=== PATIENT | male | born 1955 | race Caucasian/White ===

== ENCOUNTER → 2017-09-21 | Outpatient (CLI) | payer OTHER ==
[~2017-09-21] MED LIST: ADAL1KIT SQ; ASPI81TA28 PO; FLM4 PO; GLIP-199 PO
[2017-09-21 13:26] LABS: BASO ABS # 0.08 K/uL (0-0.2); EOS % 2.9 %; EOS ABS # 0.23 K/uL (0-0.5); HEMATOCRIT 33.2 % (42-52); HEMOGLOBIN 10.8 g/dL (14.0-18.0); IG# 0.02 K/uL (0.00-0.02); LYMPH % 21.6 %; LYMPH ABS # 1.69 K/uL (1.2-3.4); MEAN CELL VOLUME 89.5 fL (80-100); MEAN CORPUSCULAR HEMOGLOBIN 29.1 pg (25-34); MEAN CORPUSCULAR HGB CONC 32.5 g/dl (32-36); MEAN PLATELET VOLUME 9.3 fL (7.4-10.4); MONO % 9.8 %; MONO ABS # 0.77 K/uL (0.11-0.59); NEUT % 64.4 %; NEUT ABS # 5.05 K/uL (1.4-6.5); PLATELET COUNT 341 K/uL (130-400); RED CELL DISTRIBUTION WIDTH CV 14.3 % (11.5-14.5); RED CELL DISTRIBUTION WIDTH SD 46.7 fL (36.4-46.3); WHITE BLOOD COUNT 7.84 K/uL (4.8-10.8)
[2017-09-21 14:00] LABS: HEMOGLOBIN A1C 8.4 % (4.5-5.6)
[2017-09-21 14:11] LABS: ALBUMIN 3.1 gm/dl (3.4-5.0); ALT/SGPT 30 U/L (12-78); AST/SGOT 27 U/L (15-37); BLOOD UREA NITROGEN 48 mg/dl (7-18); CALCIUM 9.4 mg/dl (8.5-10.1); CARBON DIOXIDE 26 mmol/L (21-32); CHOLESTEROL 129 mg/dl (0-200); CREATININE 3.32 mg/dl (0.60-1.40); GLUCOSE 146 mg/dl (70-99); POTASSIUM 4.7 mmol/L (3.5-5.1); SODIUM 135 mmol/L (136-145)
[2017-09-21 14:18] LABS: CREATININE RANDOM URINE 50.8 mg/dl
[2017-09-21 14:22] LABS: ALKALINE PHOSPHATASE 91 U/L (45-117); LDL CHOLESTEROL CALCULATED 79 mg/dl
== END | disposition home or self-care (01) ==
LOC: C.LABBC 09:05
PROVIDERS: ATTEND Family Medicine Adult Medicine
DX: Z00.00 Encounter for general adult medical examination without abnormal findings (principal); E11.9 Type 2 diabetes mellitus without complications; E78.5 Hyperlipidemia, unspecified; I10 Essential (primary) hypertension

== ENCOUNTER → 2017-10-11 | Outpatient (CLI) | payer OTHER ==
--- NOTE | 2017-10-11 15:43 | DIAGNOSTIC IMAGING REPORT ---
RENAL ULTRASOUND CLINICAL HISTORY: KIDNEY DISEASE COMPARISON STUDY: None. TECHNIQUE: Sonography of the kidneys and the urinary bladder was performed. FINDINGS: The right kidney measures 8.6 x 4 x 3.6 cm and the left kidney measures 11.7 x 5.8 x 4.7 cm. There is no hydronephrosis. Mild to moderate right renal atrophy is noted. Both kidneys are echogenic. No calculi or masses are identified. The right ureteral jet was not visualized. IMPRESSION: 1. No hydronephrosis. 2. Mild to moderate right renal atrophy. 3. Increased renal echogenicity consistent with medical renal disease. Electronically signed by: Shady Cano M.D. 10/11/2017 3:42 PM Dictated Date/Time: 10/11/2017 3:41 PM
== END | disposition home or self-care (01) ==
LOC: C.ULTRBC 15:00
PROVIDERS: ATTEND Internal Medicine Nephrology
DX: N18.4 Chronic kidney disease, stage 4 (severe) (principal)

== ENCOUNTER → 2017-10-11 | Outpatient (CLI) | payer OTHER ==
[2017-10-11 13:05] LABS: HEMATOCRIT 33.4 % (42-52); HEMOGLOBIN 11.3 g/dL (14.0-18.0); MEAN CELL VOLUME 88.1 fL (80-100); MEAN CORPUSCULAR HEMOGLOBIN 29.8 pg (25-34); MEAN CORPUSCULAR HGB CONC 33.8 g/dl (32-36); MEAN PLATELET VOLUME 9.7 fL (7.4-10.4); PLATELET COUNT 341 K/uL (130-400); RED CELL DISTRIBUTION WIDTH CV 13.8 % (11.5-14.5); RED CELL DISTRIBUTION WIDTH SD 44.7 fL (36.4-46.3); WHITE BLOOD COUNT 9.83 K/uL (4.8-10.8)
[2017-10-11 13:28] LABS: ALBUMIN 3.5 gm/dl (3.4-5.0); BLOOD UREA NITROGEN 41 mg/dl (7-18); CALCIUM 9.2 mg/dl (8.5-10.1); CARBON DIOXIDE 28 mmol/L (21-32); CREATININE 3.19 mg/dl (0.60-1.40); GLUCOSE 228 mg/dl (70-99); POTASSIUM 4.5 mmol/L (3.5-5.1); SODIUM 134 mmol/L (136-145)
[2017-10-11 13:29] LABS: PHOSPHORUS 2.8 mg/dl (2.5-4.9)
== END | disposition home or self-care (01) ==
LOC: C.LABBC 09:44
PROVIDERS: ATTEND Internal Medicine Nephrology
DX: D64.9 Anemia, unspecified (principal); E55.9 Vitamin D deficiency, unspecified; N18.4 Chronic kidney disease, stage 4 (severe)

== ENCOUNTER → 2018-01-04 | Outpatient (CLI) | payer OTHER ==
[2018-01-04 13:20] LABS: ALBUMIN 3.4 gm/dl (3.4-5.0); ALKALINE PHOSPHATASE 82 U/L (45-117); ALT/SGPT 39 U/L (12-78); AST/SGOT 40 U/L (15-37); BLOOD UREA NITROGEN 58 mg/dl (7-18); CALCIUM 9.1 mg/dl (8.5-10.1); CARBON DIOXIDE 27 mmol/L (21-32); CREATININE 4.07 mg/dl (0.60-1.40); GLUCOSE 103 mg/dl (70-99); POTASSIUM 4.4 mmol/L (3.5-5.1); SODIUM 136 mmol/L (136-145); TOTAL PROTEIN 7.9 gm/dl (6.4-8.2)
[2018-01-04 13:31] LABS: HEMOGLOBIN A1C 8.2 % (4.5-5.6)
== END | disposition home or self-care (01) ==
LOC: C.LABBC 09:08
PROVIDERS: ATTEND Family Medicine Adult Medicine
DX: E11.9 Type 2 diabetes mellitus without complications (principal); D64.9 Anemia, unspecified

== ENCOUNTER 2022-04-23 09:03 | Inpatient (IN) ==
--- NOTE | 2022-04-23 09:20 | Emergency Department Note ---
Impression & Plan Sepsis, Acute hypotension, Leukocytosis, Acute UTI (urinary tract infection), Immunocompromised state ED Provider Note Name: KINJAL SHI Age: 67 Sex: M Arrives Via: Walk-In Informant: Patient, Daughter ED Provider: Barron Lomas MD Chief Complaint: Chills Impression: As per impressions above Medical Decision Makin-year-old gentleman with history of diabetes, hyperlipidemia, hypertension, psoriasis, chronic hep B who has previous renal cell transplant and is on CellCept. He arrives for evaluation of worsening chills and fevers. On arrival patient is tachycardic, hypotensive and febrile. Septic work-up initiated with cultures and lactate obtained. He was given 2 L normal saline bolus IV for a 30/kg fluid bolus. He was given empiric IV cefepime for suspected urinary infection. Laboratory work-up reveals elevated white blood cell count and mild bump in his creatinine to 1.6 from a reported 1.1-1.2 as an outpatient. His urinalysis does seem consistent with urinary tract infection. He has no abdominal tenderness palpation, no evidence of meningitis and respiratory seems clear. He is breathing comfortably. Following fluid bolus patient looks much improved heart rate is come down and is in no distress. Patient is septic from a urinary infection in the setting of chronic immunosuppression. He will require hospitalization. Hospitalist consulted for further management. I will note patient's troponin is elevated. He has no chest pain, no shortness of breath no recent syncope palpitations. His EKG is without evidence of isc hemia. I suspect that the elevated troponin is secondary to acute hypotensive episode in the setting of sepsis and should see. Prior Medical Record and Triage/Nursing Notes reviewed by Me Additional history obtained from chart and daughter Differentials:Viral syndrome, otitis, pharyngitis, pneumonia, influenza, meningitis, urinary tract infection, sepsis, bacteremia, as well as other pathologies. Vital Signs: reviewed and remarkable for fever, tachycardia, hypotension Interventions: 2 L normal saline bolus IV, cefepime 2 g IV, daptomycin IV Labs:Reviewed and remarkable for elevated troponin, elevated white blood cell count, mild elevated Cr Imaging:X ray results are stated below per my interpretation: Chest: 1 view: No infiltrate, no effusion, normal cardiac border. EKG:As per my interpretation. Indication sepsis. Sinus tachycardia at 109 bpm with a QTC of 420. There is no ectopy nor ischemia. I do not see any previous EKGs for comparison. Cardiac/Tele Monitoring: Cardiac Monitoring: An Order was placed for continuous cardiac monitoring. The monitor shows a rate of 90 with a normal sinus rhythm. Consults:Dr Maria E TAVERA Hospitalist Plan: Disposition:Hospitalization. Condition: Fair History of Present Illness:67-year-old gentleman with a history of renal transplant on CellCept, diabetes, hyperlipidemia, hypertension, psoriasis and chronic hep B arrives for evaluation of fevers and illness. Patient not feeling well yesterday with fatigue and chills. Overnight developing fevers. He has been having shaking chills throughout the evening. He notes he feels quite weak at times. This morning took some Tylenol for fever and came into the ER for evaluation. He notes on arrival he is feeling a bit better. He was immediately taken to be 3 on arrival given his low blood pressure and elevated pulse rate. Patient just feels he is tired currently. Denies any headache, neck pain, chest pain, shortness of breath, abdominal pain, urinary burning/frequency, diarrhea, rashes, leg swelling, calf pain or other concerning signs or symptoms. He does have a history of UTI following his renal cell transplant and had sepsis at that time. Denies any recent falls, trauma, injuries. Tylenol prior to arrival. Exertion seems to make symptoms worse and rest seems to make them better. ROS: See above HPI for pertinent positives & negatives. A total of 10 systems reviewed and were otherwise negative. Past Medical History: diabetes, hyperlipidemia, hypertension, psoriasis, chronic hep B Past Surgical History:Renal cell transplant Family History:See Below Social History:See Below Home Medications:See Below Allergies:PNC Vitals:Blood Pressure: 87/56, Pulse 124, RR 20, T 37.3C, O2 96% on RA Physical Exam: GENERAL: Patient is unwell appearing and in dehydrated and mild distress. EYES: No scleral icterus, unremarkable pupils. ENT: Mucous membranes dry, no nasal congestion. NECK: No masses appreciated, nomeningismus, trachea is midline. RESPIRATORY: No dyspnea. Clear to auscultation and equal bilaterally. No wheeze, no rhonchi. CARDIOVASCULAR: Tachy.No murmurs, rubs, gallops appreciated. GASTROINTESTINAL: Abdomen soft, non-tender, no peritonitis.Bowel sounds positive.No masses appreciated. BACK: No midline tenderness, no CVA tenderness EXTREMITIES: Normal motion all extremities, no cyanosis, no edema. NEUROLOGIC: Alert and oriented, no acute motor or sensory deficits, no focal weakness, cranial nerves grossly intact. SKIN: No rash, no jaundice, no diaphoresis. PSYCH: Appropriate GCS: 15 ED Course: Times/Reassessments: Patient with rapid improvement following fluid bolus. He is breathing comfortably he is in no distress he is agreeable to hospitalization. Post resuscitation volume status examination at 11:08 AM on 04/23/2022. Patient comfortable blood pressure is 110/60, heart rate 90, satting 98% on room air with good cap refill no distress. He is well-hydrated at this point. Critical Care: I have personally spent 45 minutes of critical care time in the direct managemen t of this patient. Hypotensive Sepsis with UTI in immunocompromised male requiring fluid resuscitation. This was a life/limb threatening event. This 45 minutes is in excess of all separately billable procedures. Barron Lomas MD Past Med/Surg History Medical History (Updated 04/23/22 @ 13:00 by Barron Lomas MD) Chronic hepatitis B Diabetes mellitus, type 2 History of kidney stones Hyperlipidemia Hypertension Positive PPD Psoriasis Psoriatic arthritis Tubulovillous adenoma Surgical History A-V fistula LEFT History of colonoscopy History of esophagogastroduodenoscopy (EGD) History of lithotripsy Renal transplant recipient Family History Father Myocardial infarction Family history of diabetes mellitus Other No family history of adverse response to anesthesia Denies family history of Ovarian cancer Prostate cancer Breast cancer Colorectal cancer Lung disease Social History Smoking Status: Former smoker Tobacco Type: Cigarettes Second Hand Exposure: No; Hx Alcohol Use: No Hx Substance Use: No Preferred Language: Monegasque Visual Impairment: Limited Hearing Ability: Normal Home Care Manager Required: No Beliefs That Will Affect Care: None marital status: Current Living Situation: Family Current Living Situation Comment: AND SON current occupational status: employed current occupation: SELF EMPLOYED How many Children do You have: 2 Feels Safe at Home: Yes Childhood Exposure to Second-Hand Smoke: No caffeine: Yes Dental Care, Regularly: Yes Physical Activity Frequency: 1-2 Times per Week Seatbelt Use: always Sunscreen Use: Yes Assistive Devices: Glasses Allergies Allergies Allergy/AdvReac Type Severity Reaction Status Date / Time Penicillins Allergy Mild Rash Verified 01/30/22 13:11 Home Meds Home Medications Medication Instructions Recorded Confirmed aspirin 81 mg chewable tablet 1 tab PO DAILY #30 tabs 11/23/18 01/30/22 entecavir 0.5 mg tablet (Baraclude) 0.5 mg PO DAILY 03/24/21 01/30/22 mycophenolate mofetil 250 mg 1,000 mg PO BID 03/24/21 01/30/22 capsule (CellCept) acetaminophen 500 mg tablet 500 mg PO Q8H PRN 01/30/22 01/30/22 (Tylenol Extra Strength) belatacept 250 mg intravenous IV 01/30/22 01/30/22 solution (Nulojix) betamethasone dipropionate 0.05 % 1 applic topical DAILY PRN 01/30/22 01/30/22 topical cream blood-glucose meter,continuous 01/30/22 01/30/22 (Dexcom G6 Pug Machine Operator misc) blood-glucose sensor (Dexcom G6 01/30/22 01/30/22 Sensor device) blood-glucose transmitter (Dexcom 01/30/22 01/30/22 G6 Transmitter device) docusate sodium 100 mg capsule 100 mg PO BID 01/30/22 01/30/22 insulin aspart U-100 100 unit/mL 12 unit subcut TID 01/30/22 01/30/22 subcutaneous cartridge (Novolog PenFill U-100 Insulin aspart) insulin glargine 100 unit/mL (3 24 unit subcut QPM 01/30/22 01/30/22 mL) subcutaneous pen (Basaglar KwikPen U-100 Insulin) isoniazid 300 mg tablet 300 mg PO DAILY 01/30/22 01/30/22 metformin 500 mg tablet 500 mg PO BID 01/30/22 01/30/22 pen needle, diabetic 32 gauge x 01/30/22 01/30/22 5/32" (BD Jackie 2nd Gen Pen Needle) pyridoxine (vitamin B6) 50 mg 50 mg PO DAILY 01/30/22 01/30/22 tablet sitagliptin phosphate 100 mg 100 mg PO DAILY 01/30/22 01/30/22 tablet (Januvia) Previous Rx's Medication Instructions Recorded blood-glucose meter (OneTouch #1 ea 08/13/20 Verio Meter) carvedilol 3.125 mg tablet (Coreg) 3.125 mg PO BID #60 tabs 10/03/20 lancets (OneTouch UltraSoft #200 ea 02/27/21 Lancets) blood sugar diagnostic (OneTouch #200 strips 12/31/21 Verio test strips) atorvastatin 10 mg tablet 10 mg PO DAILY #90 tabs 03/25/22 Results & Data (ED) Vital Signs Vital Signs - 24 hr 04/23/22 09:05 04/23/22 09:39 04/23/22 09:32 Temperature 37.3 C Temperature Source Temporal Artery Scan Pulse Rate 124 H 105 H Respiratory Rate 20 20 Respiratory Effort / Characteristics Non-Labored Respiratory Depth Normal Blood Pressure 87/56 L 99/62 L Blood Pressure Mean 66 74 Pulse Oximetry 96 96 95 Oxygen Delivery Method Room Air Room Air Sepsis Recent Fever Within 48 Hours No Sepsis New/Unexplained Change in Mental Status N/A Sepsis Action Taken by Nursing No Action Required 04/23/22 10:00 04/23/22 11:50 04/23/22 11:50 Temperature 36.8 C Temperature Source Oral Pulse Rate 98 H 94 H Respiratory Rate 20 Respiratory Effort / Characteristics Respiratory Depth Blood Pressure 102/59 L 132/65 Blood Pressure Mean 73 87 Pulse Oximetry 97 96 Oxygen Delivery Method Room Air Sepsis Recent Fever Within 48 Hours Sepsis New/Unexplained Change in Mental Status Sepsis Action Taken by Nursing Laboratory Data Result diagrams: 04/23/22 09:20 04/23/22 09:20 Lab Results 04/23/22 04/23/22 04/23/22 Range/Units 09:20 09:20 09:20 WBC 24.05 H (4.8-10.8) K/ul RBC 4.12 L (4.63-6.08) M/uL Hgb 12.7 L (14.0-18.0) g/dl Hct 38.4 L (40.1-51.0) % MCV 93.2 (80.0-100.0) fL MCH 30.8 (25.0-34.0) pg MCHC 33.1 (32.0-36.0) g/dL RDW Std Deviation 44.4 (36.4-46.3) fL RDW Coeff of Yves 13.0 (11.5-14.5) % Plt Count 206 (130-400) K/uL MPV 9.5 (9.4-12.4) fL Immature Gran % (Auto) 0.9 % Neut % (Auto) 89.7 % Lymph % (Auto) 2.0 % Bowie % (Auto) 6.9 % Eos % (Auto) 0.3 % Baso % (Auto) 0.2 % Neut # (Auto) 21.54 H (1.4-6.5) K/uL Lymph # (Auto) 0.49 L (1.2-3.4) K/uL Bowie # (Auto) 1.67 H (0.24-0.82) K/uL Eos # (Auto) 0.08 (0-0.50) K/uL Baso # (Auto) 0.06 (0-0.2) K/uL Immature Gran # (Auto) 0.21 H (0.00-0.02) K/uL Sodium 129 L (136-145) mmol/L Potassium 4.1 (3.5-5.1) mmol/L Chloride 95 L (98-107) mmol/L Carbon Dioxide 25 (21-32) mmol/L Anion Gap 9 (3-11) BUN 18 (6-23) mg/dl Creatinine 1.69 H (0.6-1.4) mg/dl Est Cr Clr Drug Dosing 38.5 ml/min Est GFR ( Amer) 47.3 ml/min Est GFR (Non-Af Amer) 40.8 ml/min BUN/Creatinine Ratio 10.7 (10-20) Glucose 216 H (70-99(Fasting)) mg/dl POC Glucose (70-99) mg/dl Lactate 2.0 (0.4-2.0) mmol/L Calcium 10.7 H (8.5-10.1) mg/dl Magnesium 1.5 L (1.7-2.4) mg/dl Total Bilirubin 0.9 (0.2-1.0) mg/dl Direct Bilirubin 0.3 H (0-0.2) mg/dl AST 20 (13-39) U/L ALT 18 (7-52) U/L Alkaline Phosphatase 82 (34-104) U/L Troponin I High Sens 1708.5 H* (0-20) pg/ml Total Protein 7.1 (6.0-8.3) gm/dl Albumin 4.1 (3.4-5.0) gm/dl Procalcitonin (0-0.5) ng/ml Urine Color Urine Appearance (Clear) Urine pH (4.5-7.5) Ur Specific [place] (1.000-1.030) Urine Protein (Negative) Urine Glucose (UA) (Negative) Urine Ketones (Negative) Urine Blood (Negative) Urine Nitrite (Negative) Urine Bilirubin (Negative) Urine Urobilinogen (Negative) Ur Leukocyte Esterase (Negative) Urine WBC (Auto) (0-5) /hpf Urine RBC (Auto) (0-4) /hpf U Hyaline Cast (Auto) (0-5) /lpf U Epithel Cells (Auto) (0-5) /lpf Urine Bacteria (Auto) (Negative) Granular Casts (0) /lpf Urine Yeast SARS-CoV-2 (PCR) (Negative) Influenza Type A (PCR) (Neg) Influenza Type B (PCR) (Neg) RSV (RT-PCR) (Neg) 04/23/22 04/23/22 04/23/22 Range/Units 09:20 09:26 09:32 WBC (4.8-10.8) K/ul RBC (4.63-6.08) M/uL Hgb (14.0-18.0) g/dl Hct (40.1-51.0) % MCV (80.0-100.0) fL MCH (25.0-34.0) pg MCHC (32.0-36.0) g/dL RDW Std Deviation (36.4-46.3) fL RDW Coeff of Yves (11.5-14.5) % Plt Count (130-400) K/uL MPV (9.4-12.4) fL Immature Gran % (Auto) % Neut % (Auto) % Lymph % (Auto) % Bowie % (Auto) % Eos % (Auto) % Baso % (Auto) % Neut # (Auto) (1.4-6.5) K/uL Lymph # (Auto) (1.2-3.4) K/uL [place]ie # (Auto) (0.24-0.82) K/uL Eos # (Auto) (0-0.50) K/uL Baso # (Auto) (0-0.2) K/uL Immature Gran # (Auto) (0.00-0.02) K/uL Sodium (136-145) mmol/L Potassium (3.5-5.1) mmol/L Chloride (98-107) mmol/L Carbon Dioxide (21-32) mmol/L Anion Gap (3-11) BUN (6-23) mg/dl Creatinine (0.6-1.4) mg/dl Est Cr Clr Drug Dosing ml/min Est GFR ( Amer) ml/min Est GFR (Non-Af Amer) ml/min BUN/Creatinine Ratio (10-20) Glucose (70-99(Fasting)) mg/dl POC Glucose (70-99) mg/dl Lactate (0.4-2.0) mmol/L Calcium (8.5-10.1) mg/dl Magnesium (1.7-2.4) mg/dl Total Bilirubin (0.2-1.0) mg/dl Direct Bilirubin (0-0.2) mg/dl AST (13-39) U/L ALT (7-52) U/L Alkaline Phosphatase (34-104) U/L Troponin I High Sens (0-20) pg/ml Total Protein (6.0-8.3) gm/dl Albumin (3.4-5.0) gm/dl Procalcitonin 3.85 H (0-0.5) ng/ml Urine Color Dark Yellow Urine Appearance Turbid A (Clear) Urine pH 5.5 (4.5-7.5) Ur Specific [place] 1.026 (1.000-1.030) Urine Protein 2+ H (Negative) Urine Glucose (UA) Trace H (Negative) Urine Ketones Trace H (Negative) Urine Blood 3+ H (Negative) Urine Nitrite Negative (Negative) Urine Bilirubin Negative (Negative) Urine Urobilinogen Negative (Negative) Ur Leukocyte Esterase 3+ H (Negative) Urine WBC (Auto) >30 H (0-5) /hpf Urine RBC (Auto) 0-4 (0-4) /hpf U Hyaline Cast (Auto) 1-5 (0-5) /lpf U Epithel Cells (Auto) >30 H (0-5) /lpf Urine Bacteria (Auto) 4+ H (Negative) Granular Casts 1-5 H (0) /lpf Urine Yeast Not Reportable SARS-CoV-2 (PCR) NEGATIVE (Negative) Influenza Type A (PCR) Negative (Neg) Influenza Type B (PCR) Negative (Neg) RSV (RT-PCR) Negative (Neg) 04/23/22 Range/Units 12:22 WBC (4.8-10.8) K/ul RBC (4.63-6.08) M/uL Hgb (14.0-18.0) g/dl Hct (40.1-51.0) % MCV (80.0-100.0) fL MCH (25.0-34.0) pg MCHC (32.0-36.0) g/dL RDW Std Deviation (36.4-46.3) fL RDW Coeff of Yves (11.5-14.5) % Plt Count (130-400) K/uL MPV (9.4-12.4) fL Immature Gran % (Auto) % Neut % (Auto) % Lymph % (Auto) % Bowie % (Auto) % Eos % (Auto) % Baso % (Auto) % Neut # (Auto) (1.4-6.5) K/uL Lymph # (Auto) (1.2-3.4) K/uL [place] # (Auto) (0.24-0.82) K/uL Eos # (Auto) (0-0.50) K/uL Baso # (Auto) (0-0.2) K/uL Immature Gran # (Auto) (0.00-0.02) K/uL Sodium (136-145) mmol/L Potassium (3.5-5.1) mmol/L Chloride (98-107) mmol/L Carbon Dioxide (21-32) mmol/L Anion Gap (3-11) BUN (6-23) mg/dl Creatinine (0.6-1.4) mg/dl Est Cr Clr Drug Dosing ml/min Est GFR ( Amer) ml/min Est GFR (Non-Af Amer) ml/min BUN/Creatinine Ratio (10-20) Glucose (70-99(Fasting)) mg/dl POC Glucose 84 (70-99) mg/dl Lactate (0.4-2.0) mmol/L Calcium (8.5-10.1) mg/dl Magnesium (1.7-2.4) mg/dl Total Bilirubin (0.2-1.0) mg/dl Direct Bilirubin (0-0.2) mg/dl AST (13-39) U/L ALT (7-52) U/L Alkaline Phosphatase (34-104) U/L Troponin I High Sens (0-20) pg/ml Total Protein (6.0-8.3) gm/dl Albumin (3.4-5.0) gm/dl Procalcitonin (0-0.5) ng/ml Urine Color Urine Appearance (Clear) Urine pH (4.5-7.5) Ur Specific [place] (1.000-1.030) Urine Protein (Negative) Urine Glucose (UA) (Negative) Urine Ketones (Negative) Urine Blood (Negative) Urine Nitrite (Negative) Urine Bilirubin (Negative) Urine Urobilinogen (Negative) Ur Leukocyte Esterase (Negative) Urine WBC (Auto) (0-5) /hpf Urine RBC (Auto) (0-4) /hpf U Hyaline Cast (Auto) (0-5) /lpf U Epithel Cells (Auto) (0-5) /lpf Urine Bacteria (Auto) (Negative) Granular Casts (0) /lpf Urine Yeast SARS-CoV-2 (PCR) (Negative) Influenza Type A (PCR) (Neg) Influenza Type B (PCR) (Neg) RSV (RT-PCR) (Neg) Administered Medications Discontinued Medications Sodium Chloride (Nss 1000ml) 1,000 mls @ 999 mls/hr IV .Q1H1M NEHA Stop: 04/23/22 11:30 Last Infusion: 04/23/22 11:44 Dose: 0 mls/hr Documented By: Admin: 04/23/22 10:43 Dose: 999 mls/hr Documented By: Infusion: 04/23/22 10:31 Dose: 999 mls/hr Documented By: Admin: 04/23/22 09:30 Dose: 999 mls/hr Documented By: MMBhupendra Cefepime HCl (Maxipime) 2,000 mg in 20 mls @ 5 mls/min IV NOW STA Stop: 04/23/22 09:38 Last Admin: 04/23/22 09:56 Dose: 5 mls/min Documented By: MARBELLA Daptomycin 400 mg/ Syringe 8 mls @ 4 mls/min IV NOW STA; Protocol Stop: 04/23/22 10:18 Last Admin: 04/23/22 11:47 Dose: 4 mls/min Documented By: FERMÍN Magnesium Oxide (Magnesium Oxide 400 Mg Tab) 400 mg PO ONCE ONE Stop: 04/23/22 12:01 Last Admin: 04/23/22 12:31 Dose: 400 mg Documented By: OAM Imaging Data Radiologist's Impression: Chest X-Ray 04/23/22 09:17 SINGLE VIEW CHEST CLINICAL HISTORY: Sepsis. FINDINGS: An AP, portable, upright chest radiograph is compared to study dated 10/26/2017. The cardiomediastinal silhouette is top normal for projection. The pulmonary vasculature is noncongested. Chronic interstitial thickening is previous. There is mild bibasilar scarring/atelectasis. No airspace consolidation or large pleural effusion is identified. No pneumothorax is seen. The skeletal structures are osteopenic. The bony thorax is grossly intact. IMPRESSION: No acute cardiopulmonary abnormality is identified. ACT 112: Negative or not required by law. Electronically signed by: Dean Casas M.D. 04/23/2022 9:52 AM Renal Ultrasound 04/23/22 11:25 ULTRASOUND RENAL TRANSPLANT CLINICAL HISTORY: Urinary tract infection. Renal insufficiency. COMPARISON STUDY: No priors. TECHNIQUE: Multiple lynn scale, color Doppler, and spectral Doppler sonograms of the transplanted kidney were obtained in the transverse and longitudinal planes. FINDINGS: The transcend kidney is identified in the right pelvis. The renal transplant is normal in size measuring 11.8 cm in length. Cortical echotexture is within normal limits and there is no hydronephrosis. The resistive index in the segmental arterial branches ranges from 0.57 to 0.79 . The velocities within the main renal artery within normal limits measured 169 cm/s. The main renal vein is patent. No perirenal fluid collection is seen. Survey imaging of the upper abdomen shows atrophic and echogenic [place] kidneys. The bladder is parti ally decompressed and grossly unremarkable. Ureteral jets were not seen. IMPRESSION: Normal sonographic examination of the right pelvic renal transplant. ACT 112: Negative or not required by law. Electronically signed by: Dean Casas M.D. 04/23/2022 12:55 PM Discharge Plan Visit Data Chief Complaint: Fever Stated Complaint: KIDNEY RECIPIENT, FEVER ED Provider: Barron Lomas Discharge Problem: Sepsis, Acute hypotension, Leukocytosis, Acute UTI (urinary tract infection), Immunocompromised state Forms Stand Alone Forms: My [facility] Prescriptions Prescriptions: No Action (DME) blood-glucose meter [OneTouch Verio Meter] Mis See Rx Instructions .ROUTE .MEDSUPPLY Qty: 1 0RF Rx Instructions: test one- two times daily carvedilol [Coreg] 3.125 mg tablet 3.125 mg PO BID Qty: 60 5RF Rx Instructions: must administer with a meal/food (DME) lancets [[facility] Ultra[facility]ets] [facility] See [facility] Instructions .ROUTE .MEDSUPPLY Qty: 200 3RF Rx Instructions: test one-two times daily dx: E11.22 (DME) OneTouch Verio test strips Strip See Rx Instructions .ROUTE .COMPLEX Qty: 200 3RF Dose Instruction: TEST ONE- TWO TIMES DAILY DX: E11.22 Rx Instructions: TEST ONE- TWO TIMES DAILY DX: E11.22 atorvastatin 10 mg tablet 10 mg PO DAILY Qty: 90 3RF Label Comments: HS entecavir [Baraclude] 0.5 mg tablet 0.5 mg PO DAILY mycophenolate mofetil [CellCept] 250 mg capsule 1,000 mg PO BID Basaglar KwikPen U-100 Insulin 100 unit/mL (3 mL) insulin pen 24 unit subcut QPM aspirin 81 mg tablet,chewable 1 tab PO DAILY Qty: 30 Label Comments: HS betamethasone dipropionate 0.05 % cream 1 applic topical DAILY PRN isoniazid 300 mg tablet 300 mg PO DAILY pyridoxine (vitamin B6) 50 mg tablet 50 mg PO DAILY docusate sodium 100 mg capsule 100 mg PO BID (DME) Dexcom G6 Sensor Device See Rx Instructions .ROUTE Rx Instructions: As directed (DME) Dexcom G6 Pug Machine Operator Misc See Rx Instructions .ROUTE Rx Instructions: As directed (DME) Dexcom G6 Transmitter Device See Rx Instructions .ROUTE Rx Instructions: As directed (DME) pen needle, diabetic [BD Jackie 2nd Gen Pen Needle] 32 gauge x 5/32" needle See Rx Instructions .ROUTE Rx Instructions: As directed insulin aspart U-100 [Novolog PenFill U-100 Insulin] 100 unit/mL cartridge 12 unit subcut TID Januvia 100 mg tablet 100 mg PO DAILY Nulojix 250 mg recon soln IV acetaminophen [Tylenol Extra Strength] 500 mg tablet 500 mg PO Q8H PRN metformin 500 mg tablet 500 mg PO BID Referrals Referrals: Cirilo Cummings DO [Primary Care Provider] - : Sepsis Qualifiers: Sepsis type: sepsis due to unspecified organism Sepsis acute organ dysfunction status: with acute organ dysfunction Severe sepsis acute organ dysfunction type: unspecified Severe sepsis shock status: without septic shock Qualified Code(s): A41.9 - Sepsis, unspecified organism Leukocytosis Qualifiers: Leukocytosis type: unspecified Qualified Code(s): D72.829 - Elevated white blood cell count, unspecified
[2022-04-23] MEDS: SODIUM CHLORIDE 0.9% 1000ML 1,000 ML IV SCH ×2 (09:30→10:43)
[2022-04-23 09:33] LABS: Hematocrit (blood only) 38.4 % (40.1-51.0); Hemoglobin 12.7 g/dl (14.0-18.0); Mean Corpuscular Hemoglobin 30.8 pg (25.0-34.0); Mean Corpuscular Hgb Conc 33.1 g/dL (32.0-36.0); Mean Corpuscular Volume 93.2 fL (80.0-100.0); Mean Platelet Volume 9.5 fL (9.4-12.4); Platelet Count 206 K/uL (130-400); RDW Standard Deviation 44.4 fL (36.4-46.3); Red Blood Count 4.12 M/uL (4.63-6.08); White Blood Count 24.05 K/ul (4.8-10.8)
[2022-04-23] MEDS ORDERED: CEFEPIME 2,000 MG/20 ML VIAL IV STA (09:35)
[2022-04-23 09:42] LABS: Appearance Urine Turbid (Clear); Bacteria Urine Automated 4+ (Negative); Bilirubin Urine Negative (Negative); Blood Urine 3+ (Negative); Color Urine Dark Yellow; Epithelial Cell Urine Auto >30 /lpf (0-5); Glucose Urine UA Trace (Negative); Ketones Urine Trace (Negative); Leukocyte Esterase Urine 3+ (Negative); Nitrite Urine Negative (Negative); Protein Urine 2+ (Negative); Specific Gravity Urine 1.026 (1.000-1.030); Urobilinogen Urine Negative (Negative); WBC Urine Automated >30 /hpf (0-5); pH Urine 5.5 (4.5-7.5)
[2022-04-23 09:52] LABS: Albumin Level 4.1 gm/dl (3.4-5.0); BUN Creatinine Ratio 10.7 (10-20); Bilirubin Direct 0.3 mg/dl (0-0.2); Bilirubin,Total 0.9 mg/dl (0.2-1.0); Calcium 10.7 mg/dl (8.5-10.1); Creatinine Clr Calc Pharmacy 38.5 ml/min; Est GFR (African American) 47.3 ml/min; Est GFR (Non-African American) 40.8 ml/min; Magnesium 1.5 mg/dl (1.7-2.4); Potassium 4.1 mmol/L (3.5-5.1); Total Protein 7.1 gm/dl (6.0-8.3)
--- NOTE | 2022-04-23 09:53 | XRay Report ---
SINGLE VIEW CHEST CLINICAL HISTORY: Sepsis. FINDINGS: An AP, portable, upright chest radiograph is compared to study dated 10/26/2017. The cardiom ediastinal silhouette is top normal for projection. The pulmonary vasculature is noncongested. Chroni c interstitial thickening is previous. There is mild bibasilar scarring/atelectasis. No airspace cons olidation or large pleural effusion is identified. No pneumothorax is seen. The skeletal structures a re osteopenic. The bony thorax is grossly intact. IMPRESSION: No acute cardiopulmonary abnormality is identified. ACT 112: Negative or not required by law. Electronically signed by: Dean Casas M.D. 04/23/2022 9:52 AM
[2022-04-23 09:58] LABS: RBC Urine Automated 0-4 /hpf (0-4)
[2022-04-23 10:10] LABS: Basophils # (auto) 0.06 K/uL (0-0.2); Basophils % (auto) 0.2 %; Eosinophils # (auto) 0.08 K/uL (0-0.50); Eosinophils % (auto) 0.3 %; Immature Granulocytes # (auto) 0.21 K/uL (0.00-0.02); Immature Granulocytes % (auto) 0.9 %; Lymphocytes # (auto) 0.49 K/uL (1.2-3.4); Monocytes # (auto) 1.67 K/uL (0.24-0.82); Monocytes % (auto) 6.9 %; Neutrophils # (auto) 21.54 K/uL (1.4-6.5); Neutrophils % (auto) 89.7 %
[2022-04-23] MEDS ORDERED: DAPTOmycin 400 MG in SYRINGE 0 ML IV STA (10:17)
[2022-04-23 10:21] LABS: Troponin I High Sensitivity 1708.5 pg/ml (0-20)
[2022-04-23 10:30] LABS: Influenza A virus by PCR Negative (Neg); Influenza B virus by PCR Negative (Neg); RSV by PCR Negative (Neg); SARS CoV2 RNA(COVID-19) Ceph NEGATIVE (Negative)
--- NOTE | 2022-04-23 10:33 | History & Physical Report ---
Date of Service April 23, 2022 Assessment & Plan (1) Sepsis: Plan: -Admit to med/tele -Patient is currently afebrile, hemodynamically stable, and stable on RA -Patient noted to be hypotensive with systolics in the 80's on initial presentation but now stable after receiving 2L NSS in the ED -At this time it appears that the source of his sepsis is urinary, his UA appears to be positive for UTI and no other lab or physical exam findings to suggest another source at this time -Was given one dose of Cefepime and Daptomycin in the ED, will continue with both for now to cover broadly until his blood and urine cultures result, tailor abx to his results -His initial hypotension was likely due to current infection, fever, poor oral intake, and continuing to take his carvedilol -Will continue on IV fluids for now with LR's at 100 ml/hr x 2 bags and can star t a PO diet -Spoke with transplant team at [facility], hold Cellcept for now with concern for infection, would touch base with them prior to discharge for final recommendations -Monitor am CBC, CMP, and magnesium (2) MOOKIE (acute kidney injury): Plan: -Cr today noted to be 1.65, baseline is approximately 1.2 -Likely multifactorial including current UTI/sepsis, dehydration, and hypotension -Will continue IV fluids on admission, hold Carvedilol for now until hemodynamically stable -Monitor am Renal function (3) Elevated troponin: Plan: -Initial high sensitivity troponin noted to be 1708 -Patient is without chest pain, SOB, chest discomfort and no acute ST segment or T-wave changes on EKG -Likely due to demand ischemia from sepsis and hypotension -Will repeat another high sensitivity troponin now and then q6h x 3 to ensure it reaches a plateau -Continue to monitor on tele (4) Chronic hepatitis B: Plan: -Stable liver function -Continue entecavir (5) Renal transplant recipient: Plan: -See Sepsis and MOOKIE (6) Diabetes: Plan: -Hold metformin -Normally takes 22 units of glargine HS, will decrease to 15 units HS for now with poor oral intake -Will continue with correction factor of 65 and carb ratio of 22 -DM II diet (7) Anemia: Plan: -Stable (8) Hyperlipidemia: Plan: -Continue statin (9) Hypertension: Plan: -Hemodynamically stable on admission -Hold carvedilol for now until he is more stable to avoid hypotension (10) Hyponatremia: Plan: -Noted to be 131 today after correcting for hyperglycemia -Is chronically hyponatremic, likely lower today due to poor oral intake over the past 3 days -Monitor sodium levels in the am after adequate hydration (11) Hypomagnesemia: Plan: -Noted to be 1.5 today -Likely due to poor oral intake and recent vomiting -Will give one dose of 400 mg PO mag-oxide, monitor AM mag levels Plan The patient was discussed with Dr. Sanderson at the time of the admission History of Present Illness Chief Complaint: Illness Primary Care Provider: Cirilo Cummings DO Munoz (Donald) is an 67 year old male with a PMH significant for ESRD S/P living unrelated donor transplant at [facility] on [place] , DM, HTN, Hyperlipidemia, psoriasis, chronic hepatitis B who presented to [facility] ED on 04/23/22 with a chief complaint of illness. In the ED the patient was initially found to be afebrile, stable on RA, but hypotensive at 87/56. Labs were remarkable for a leukocytosis of 24 with left shift of 21, stable Hgb at 12.7, Cr. of 1.69 (patient states that baseline is around 1.2), sodium of 131 after correcting for glucose of 216, calcium of 10.7, mag of 1.5, direct bili of 0.3, high sensitivity troponin of 1708, procal of 3.85, and UA concerning for UTI. He was found to have negative screens for Covid, Influenza, and RSV. Chest xray was negative for acute findings. Prior to admission the patient was given 2L NSS and his blood pressure improved to 102/59, cefepime, and daptomycin. At the time of the exam the patient was resting comfortably in bed in no acute distress with his Daughter sitting bedside, history was obtained from both. They state that over the past few days the patient has had progressive fevers (as high as 102 F), chills, weakness, and poor oral intake. The patient had one episode of nausea and vomiting yesterday, he denies blood in his vomit. His daughter states that she gave him tylenol which did help with is fever and chills. They noted that his urine has been more concentrated over this time, he denies dysuria and hematuria. When asked, the patient denies current chest pain, SOB, abdominal pain, nausea, vomiting, diarrhea, melena, and lower extremity swelling. The patient currently gets monthly infusions of belatacept for im munosuppression, his last infusion was last week. He also takes Mycophenolate for his kidney transplant and is on entecavir for his chronic Hepatitis B. When asked, the patient and his daughter confirm that he was still taking his Carvedilol with his poor oral intake. I spoke to them regarding code status, the patient would like to be a Full Code. The patient explained that he has no new/acute abdominal pain. He explains that he does have tenderness at his transplant site with palpation, which has been stable since receiving his transplant. I called and spoke to the [facility] business process coordinator/nurse to touch base. They recommended holding his Cellcept for now with concerns for sepsis, they are ok with continuing his entecavir for now. Please refer to Dr. Sanderson's attestation for any changes to the treatment plan. Allergies Allergy/AdvReac Type Severity Reaction Status Date / Time Penicillins Allergy Mild Rash Verified 01/30/22 13:11 Home Medications Medication Instructions Recorded Confirmed Type aspirin 81 mg chewable tablet 1 tab PO DAILY #30 tabs 11/23/18 01/30/22 History blood-glucose meter ([employer] AirwaysTouch #1 ea 08/13/20 01/30/22 Rx Verio Meter) carvedilol 3.125 mg tablet (Coreg) 3.125 mg PO BID #60 tabs 10/03/20 01/30/22 Rx lancets (OneTouch UltraSoft #200 ea 02/27/21 01/30/22 Rx Lancets) entecavir 0.5 mg tablet (Baraclude) 0.5 mg PO DAILY 03/24/21 01/30/22 History mycophenolate mofetil 250 mg 1,000 mg PO BID 03/24/21 01/30/22 History capsule (CellCept) blood sugar diagnostic ([employer]Touch #200 strips 12/31/21 01/30/22 Rx Verio test strips) acetaminophen 500 mg tablet 500 mg PO Q8H PRN 01/30/22 01/30/22 History (Tylenol Extra Strength) belatacept 250 mg intravenous IV 01/30/22 01/30/22 History solution (Nulojix) betamethasone dipropionate 0.05 % 1 applic topical DAILY PRN 01/30/22 01/30/22 History topical cream blood-glucose meter,continuous 01/30/22 01/30/22 History (Dexcom G6 Regulatory Product Manager misc) blood-glucose sensor (Dexcom G6 01/30/22 01/30/22 History Sensor device) blood-glucose transmitter (Dexcom 01/30/22 01/30/22 History G6 Transmitter device) docusate sodium 100 mg capsule 100 mg PO BID 01/30/22 01/30/22 History insulin aspart U-100 100 unit/mL 12 unit subcut TID 01/30/22 01/30/22 History subcutaneous cartridge (Novolog PenFill U-100 Insulin aspart) insulin glargine 100 unit/mL (3 24 unit subcut QPM 01/30/22 01/30/22 History mL) subcutaneous pen (Basaglar KwikPen U-100 Insulin) isoniazid 300 mg tablet 300 mg PO DAILY 01/30/22 01/30/22 History metformin 500 mg tablet 500 mg PO BID 01/30/22 01/30/22 History pen needle, diabetic 32 gauge x 01/30/22 01/30/22 History 5/32" (BD Jackie 2nd Gen Pen Needle) pyridoxine (vitamin B6) 50 mg 50 mg PO DAILY 01/30/22 01/30/22 History tablet sitagliptin phosphate 100 mg 100 mg PO DAILY 01/30/22 01/30/22 History tablet (Januvia) atorvastatin 10 mg tablet 10 mg PO DAILY #90 tabs 03/25/22 Rx Past Med/Surg History Medical History (Updated 04/23/22 @ 11:52 by Josue Valdez PA-C) Chronic hepatitis B Diabetes mellitus, type 2 History of kidney stones Hyperlipidemia Hypertension Positive PPD Psoriasis Psoriatic arthritis Tubulovillous adenoma Surgical History A-V fistula LEFT History of colonoscopy History of esophagogastroduodenoscopy (EGD) History of lithotripsy Renal transplant recipient Family History Father Myocardial infarction Family history of diabetes mellitus Other No family history of adverse response to anesthesia Denies family history of Ovarian cancer Prostate cancer Breast cancer Colorectal cancer Lung disease Social History Smoking Status: Former smoker Tobacco Type: Cigarettes Second Hand Exposure: No; Hx Alcohol Use: No Hx Substance Use: No Preferred Language: Guinean Visual Impairment: Limited Hearing Ability: Normal Esol Teacher Required: No Beliefs That Will Affect Care: None marital status: Current Living Situation: Family Current Living Situation Comment: AND SON current occupational status: employed current occupation: SELF EMPLOYED How many Children do You have: 2 Feels Safe at Home: Yes Childhood Exposure to Second-Hand Smoke: No caffeine: Yes Dental Care, Regularly: Yes Physical Activity Frequency: 1-2 Times per Week Seatbelt Use: always Sunscreen Use: Yes Assistive Devices: Glasses Review of Systems Review of Systems: Denies current headache, changes in vision, hearing, taste, and smell, chest pain, SOB, cough, abdominal pain, nausea, vomiting, diarrhea, hematemesis, melena, dysuria, hematuria, and recent falls. All systems have been reviewed and are otherwise negative. Physical Exam Physical Exam: Physical Exam: General: In no acute distress, stated age, well-nourished, good hygiene, non- toxic appearing HEENT: Normocephalic, atraumatic, no scleral icterus, pupils around round, symmetrical, and reactive to light, dry mucus membranes, trachea midline, no thyromegaly Chest/Pulm: No respiratory distress, symmetrical chest expansion, clear breath sounds throughout Cardiac: RRR, no murmurs noted Abdomen: Negative for ascites and bruising, patient with scar in the RLQ from previous kidney transplant which appears well-healed, slightly tender to palpation over the transplant site which is the patient's baseline, normoactive bowel sounds, soft, non-tender in all other abdominal causey Musculoskeletal: Symmetrical and without signs of acute trauma, upper and lo wer extremities with full ROM, no atrophy, spasticity, or flaccidity Extremities: Radial, dorsalis pedis, and posterior tibial pulses are intact and symmetrical, no edema noted in the BL LE's Skin: Warm, dry, no rashes , lesions, or scars noted Neuro: Alert and oriented to person, place, month, year, and president, no focal defects, CN II-XII tested and intact, finger to nose test negative, no tremors noted Psych: No acute distress, calm and cooperative during the exam Results & Data Results & Data ([facility]) Vital Signs (Past 12 Hours) Vital Signs Temp Pulse Resp BP Pulse Ox O2 Del Method 04/23/22 10:00 98 H 102/59 L 97 04/23/22 09:32 105 H 20 99/62 L 95 04/23/22 09:39 96 Room Air 04/23/22 09:05 37.3 C 124 H 20 87/56 L 96 Room Air Laboratory Results Abnormal lab results 04/23/22 04/23/22 04/23/22 Range/Units 09:20 09:20 09:20 WBC 24.05 H (4.8-10.8) K/ul RBC 4.12 L (4.63-6.08) M/uL Hgb 12.7 L (14.0-18.0) g/dl Hct 38.4 L (40.1-51.0) % Neut # (Auto) 21.54 H (1.4-6.5) K/uL Lymph # (Auto) 0.49 L (1.2-3.4) K/uL Garrard # (Auto) 1.67 H (0.24-0.82) K/uL Immature Gran # (Auto) 0.21 H (0.00-0.02) K/uL Sodium 129 L (136-145) mmol/L Chloride 95 L (98-107) mmol/L Creatinine 1.69 H (0.6-1.4) mg/dl Glucose 216 H (70-99(Fasting)) mg/dl Calcium 10.7 H (8.5-10.1) mg/dl Magnesium 1.5 L (1.7-2.4) mg/dl Direct Bilirubin 0.3 H (0-0.2) mg/dl Troponin I High Sens 1708.5 H* (0-20) pg/ml Procalcitonin 3.85 H (0-0.5) ng/ml Urine Appearance (Clear) Urine Protein (Negative) Urine Glucose (UA) (Negative) Urine Ketones (Negative) Urine Blood (Negative) Ur Leukocyte Esterase (Negative) Urine WBC (Auto) (0-5) /hpf U Epithel Cells (Auto) (0-5) /lpf Urine Bacteria (Auto) (Negative) Granular Casts (0) /lpf 04/23/22 Range/Units 09:26 WBC (4.8-10.8) K/ul RBC (4.63-6.08) M/uL Hgb (14.0-18.0) g/dl Hct (40.1-51.0) % Neut # (Auto) (1.4-6.5) K/uL Lymph # (Auto) (1.2-3.4) K/uL Garrard # (Auto) (0.24-0.82) K/uL Immature Gran # (Auto) (0.00-0.02) K/uL Sodium (136-145) mmol/L Chloride (98-107) mmol/L Creatinine (0.6-1.4) mg/dl Glucose (70-99(Fasting)) mg/dl Calcium (8.5-10.1) mg/dl Magnesium (1.7-2.4) mg/dl Direct Bilirubin (0-0.2) mg/dl Troponin I High Sens (0-20) pg/ml Procalcitonin (0-0.5) ng/ml Urine Appearance Turbid A (Clear) Urine Protein 2+ H (Negative) Urine Glucose (UA) Trace H (Negative) Urine Ketones Trace H (Negative) Urine Blood 3+ H (Negative) Ur Leukocyte Esterase 3+ H (Negative) Urine WBC (Auto) >30 H (0-5) /hpf U Epithel Cells (Auto) >30 H (0-5) /lpf Urine Bacteria (Auto) 4+ H (Negative) Granular Casts 1-5 H (0) /lpf Diagnostic Findings Chest X-Ray 04/23/22 09:17 SINGLE VIEW CHEST CLINICAL HISTORY: Sepsis. FINDINGS: An AP, portable, upright chest radiograph is compared to study dated 10/26/2017. The cardiomediastinal silhouette is top normal for projection. The pulmonary vasculature is noncongested. Chronic interstitial thickening is previous. There is mild bibasilar scarring/atelectasis. No airspace consolidation or large pleural effusion is identified. No pneumothorax is seen. The skeletal structures are osteopenic. The bony thorax is grossly intact. IMPRESSION: No acute cardiopulmonary abnormality is identified. ACT 112: Negative or not required by law. Electronically signed by: Dean Casas M.D. 04/23/2022 9:52 AM ECG Additional Comments: Poor data quality, interpretation may be adversely affected Sinus tachycardia Possible Old Inferior infarct Abnormal ECG No previous ECGs available Confirmed by Nahid Aiken ([id number]) on 04/23/2022 10:41:50 AM Code Status & VTE Plan Code Status Full code VTE Prophylaxis Plan VTE Prophylaxis will be ordered: Yes PG Care Time/CCT Total # of Minutes Spent Total Time Spent with Patient: Total time spent is greater than 50% in coordination of care (as documented) at patient's floor/unit and/or counseling patient: Coding [place] [address] Initial Inpt Care Lvl 3 Patient Type Established History Comprehensive Exam Comprehensive Medical Decision Making High Complexity Diagnoses Sepsis A41.9 MOOKIE (acute kidney injury) N17.9 Elevated troponin R77.8 Chronic hepatitis B B18.1 Renal transplant recipient Z94.0 Diabetes E11.22; N18.4 Diabetes mellitus type: type 2 Diabetes mellitus terminal manager insulin use: without prison use Diabetes mellitus complication status: with kidney complications Diabetes mellitus complication detail: with chronic kidney disease Chronic kidney disease stage: stage 4 (severe) Anemia D64.9 Anemia type: due to chronic kidney disease Hyperlipidemia E78.5 Hypertension I15.1; N28.89 Hypertension type: secondary to other renal disorders Hyponatremia E87.1 Hypomagnesemia E83.42 (1) Diabetes Diabetes mellitus type: type 2 Diabetes mellitus prison insulin use: without terminal manager use Diabetes mellitus complication status: with kidney complications Diabetes mellitus complication detail: with chronic kidney disease Chronic kidney disease stage: stage 4 (severe) Qualified Code(s): E11.22 - Type 2 diabetes mellitus with diabetic chronic kidney disease; N18.4 - Chronic kidney disease, stage 4 (severe) (2) Anemia Anemia type: due to chronic kidney disease (3) Hypertension Hypertension type: secondary to other renal disorders Qualified Code(s): I15.1 - Hypertension secondary to other renal disorders; N28.89 - Other specified disorders of kidney and ureter
--- NOTE | 2022-04-23 10:42 | Electrocardiogram Report ---
Test Reason : Blood Pressure : / mmHG Vent. Rate : 109 BPM Atrial Rate : 109 BPM P-R Int : 144 ms QRS Dur : 080 ms QT Int : 312 ms P-R-T Axes : 041 014 076 degrees QTc Int : 420 ms Poor data quality, interpretation may be adversely affected Sinus tachycardia Possible Old Inferior infarct Abnormal ECG No previous ECGs available Confirmed by Nahid Aiken ([id number]) on 04/23/2022 10:41:50 AM Referred By: Josue Razo Confirmed By:Nahid Aiken
[2022-04-23] MEDS ORDERED: MAGNESIUM OXIDE 400 MG TAB PO ONE (12:00)
--- NOTE | 2022-04-23 12:57 | Ultrasound Report ---
ULTRASOUND RENAL TRANSPLANT CLINICAL HISTORY: Urinary tract infection. Renal insufficiency. COMPARISON STUDY: No priors. TECHNIQUE: Multiple lynn scale, color Doppler, and spectral Doppler sonograms of the transplanted deangelo cortes were obtained in the transverse and longitudinal planes. FINDINGS: The transcend kidney is identified in the right pelvis. The renal transplant is normal in s ize measuring 11.8 cm in length. Cortical echotexture is within normal limits and there is no hydrone phrosis. The resistive index in the segmental arterial branches ranges from 0.57 to 0.79 . The veloci ties within the main renal artery within normal limits measured 169 cm/s. The main renal vein is duran nt. No perirenal fluid collection is seen. Survey imaging of the upper abdomen shows atrophic and ech ogenic three affiliated kidneys. The bladder is partially decompressed and grossly unremarkable. Ureteral jets were not seen. IMPRESSION: Normal sonographic examination of the right pelvic renal transplant. ACT 112: Negative or not required by law. Electronically signed by: Dean Casas M.D. 04/23/2022 12:55 PM
[2022-04-23] MEDS ORDERED: GLUCAGON FOR INJ 1 MG VIAL SQ PRN (13:41)
[2022-04-23] MEDS ORDERED: GLUCOSE 10 TAB/TUBE PO PRN (13:41)
[2022-04-23] MEDS ORDERED: GLUCOSE 40% GEL 15 GM TUBE PO PRN (13:41)
[2022-04-23] MEDS ORDERED: DEXTROSE 50% 50 ML SYRINGE IV PRN (13:41)
[2022-04-23] MEDS ORDERED: CARBOHYDRATES FOR HYPOGLYCEMIA PO PRN (13:41)
[2022-04-23] MEDS: LACTATED RINGER'S 1,000 ML IV SCH (13:43)
[2022-04-23] MEDS: ACETAMINOPHEN 325 MG TAB PO PRN ×2 (13:53→22:57)
[2022-04-23] MEDS ORDERED: KETOROLAC TROMETHAMINE 15 MG/ML VIAL IV ONE (14:15)
[2022-04-23] MEDS: INSULIN ASPART PER UNIT SC SCH ×2 (18:00→21:20)
[2022-04-23] MEDS ORDERED: CEFEPIME 2,000 MG in SYRINGE 0 ML IV SCH (21:00)
[2022-04-23] MEDS: LANTUS PER UNIT CHARGE SQ SCH (21:20)
[2022-04-23] MEDS: CEFEPIME 1,000 MG in SYRINGE 0 ML IV SCH (21:21)
[2022-04-23 22:40] LABS: A calco-baum cmplx NotReported Not Detected (NotDetected); Bact fragilis Not Reported Not Detected (NotDetected); C auris Not Reported Not Detected (NotDetected); CTX-M Resistant Gene Not Detected (NotDetected); Calbicans Not Reported Not Detected (NotDetected); Candida glabrata Not Reported Not Detected (NotDetected); Candida krusei Not Reported Not Detected (NotDetected); Cneoformans/gatti Not Reported Not Detected (NotDetected); Cparapsilosis Not Reported Not Detected (NotDetected); Ctropicalis Not Reported Not Detected (NotDetected); E cloacae compx Not Reported Not Detected (NotDetected); Efaecalis Not Reported Not Detected (NotDetected); Efaecium Not Reported Not Detected (NotDetected); Enterobacterales DETECTED (NotDetected); Enterobacterales Not Reported DETECTED (NotDetected); Escherichia coli Not Reported DETECTED (NotDetected); H influenzae Not Reported Not Detected (NotDetected); IMP Resistant Gene Not Detected (NotDetected); K aerogenes Not Reported Not Detected (NotDetected); KPC Resistant Gene Not Detected (NotDetected); Koxytoca Not Reported Not Detected (NotDetected); Kpneumoniae grp Not Reported Not Detected (NotDetected); Lmonocyt Not Reported Not Detected (NotDetected); N meningitidis Not Reported Not Detected (NotDetected); NDM Resistant Gene Not Detected (NotDetected); OXA 48 Like Resistant Gene Not Detected (NotDetected); P aeruginosa Not Reported Not Detected (NotDetected); Proteus spp Not Reported Not Detected (NotDetected); Salmonella spp Not Reported Not Detected (NotDetected); Smarcescens Not Reported Not Detected (NotDetected); Staph lugdunensis Not Reported Not Detected (NotDetected); Staph spp. Not Reported Not Detected (NotDetected); Staphaureus Not Reported Not Detected (NotDetected); Staphepi Not Reported Not Detected (NotDetected); Stenmaltophilia Not Reported Not Detected (NotDetected); Strep agal(GrpB) Not Reported Not Detected (NotDetected); Strep pneum Not Reported Not Detected (NotDetected); Strep pyog (GrpA) Not Reported Not Detected (NotDetected); Strep spp Not Reported Not Detected (NotDetected); VIM Resistant Gene Not Detected (NotDetected); mcr-1 Colistin Resistant Gene Not Detected (NotDetected)
--- NOTE | 2022-04-24 00:31 | Communication Note ---
Date of Service: April 24, 2022 Patient's hsTroponin increased from 2690.4 to 5094.6. He continues to deny chest pain, and his EKG was repeated and continues to be without ST/T abnormalities although there is evidence of possible previous inferior infarct. Additionally patient does have several risk factors for ACS. - patient was not previously ordered DVT ppx and is not on chronic anti- coagulation. - start Heparin gtt LOW DOSE WITH BOLUS - check PT/PTT/INR - repeat EKG in AM, trend Troponin Q6H to peak - PRN EKG/SL Nitro for chest pain - consult Cardiology - NPO Resident Activity Tracking Resident Involvement: Resident Care Provided Care Provided: Adult Hospital Medicine
[2022-04-24] MEDS ORDERED: HEPARIN SOD (PORCINE) 1000 UNIT/ML IV ONE (01:00)
[2022-04-24 01:14] LABS: INR 1.3 (0.9-1.1); Partial Thromboplastin Ratio 1.4; Partial Thromboplastin Time 39.5 Seconds (21.0-31.0); Prothrombin Time 13.8 Seconds (9.0-12.0)
[2022-04-24] MEDS: LACTATED RINGER'S 1,000 ML IV SCH (01:21)
[2022-04-24] MEDS: HEPARIN SODIUM/DEXTROSE 25,000 UNITS/500 ML BAG IV SCH (01:21)
[2022-04-24] MEDS: Heparin IV Adult Wt-Based Low-Dose WITH Bolus Protocol IV SCH ×2 (01:25→01:29)
[2022-04-24 07:04] LABS: Hematocrit (blood only) 30.7 % (40.1-51.0); Hemoglobin 10.4 g/dl (14.0-18.0); Mean Corpuscular Hemoglobin 31.3 pg (25.0-34.0); Mean Corpuscular Hgb Conc 33.9 g/dL (32.0-36.0); Mean Corpuscular Volume 92.5 fL (80.0-100.0); Mean Platelet Volume 9.8 fL (9.4-12.4); Platelet Count 150 K/uL (130-400); RDW Coefficient of Variation 13.2 % (11.5-14.5); RDW Standard Deviation 44.8 fL (36.4-46.3); Red Blood Count 3.32 M/uL (4.63-6.08); White Blood Count 16.35 K/ul (4.8-10.8)
[2022-04-24 07:28] LABS: Albumin Globulin Ratio 1.2 (0.9-2); BUN Creatinine Ratio 14.5 (10-20); Bilirubin,Total 0.5 mg/dl (0.2-1.0); Calcium 9.9 mg/dl (8.5-10.1); Creatinine Clr Calc Pharmacy 41.5 ml/min; Est GFR (African American) 50.9 ml/min; Globulin 2.5 gm/dl (2.5-4.0); Magnesium 1.5 mg/dl (1.7-2.4); Potassium 4.1 mmol/L (3.5-5.1); Total Protein 5.5 gm/dl (6.0-8.3)
[2022-04-24 07:37] LABS: Troponin I High Sensitivity 4485.7 pg/ml (0-20)
[2022-04-24 07:54] LABS: Partial Thromboplastin Ratio 2.8
[2022-04-24] MEDS: ASPIRIN 81 MG CHEW PO SCH (07:54)
[2022-04-24] MEDS: ATORVASTATIN 10 MG TAB PO SCH (07:54)
[2022-04-24] MEDS ORDERED: MAGNESIUM SULFATE / D5W 1 GM/100 ML BAG IV ONE (08:23)
--- NOTE | 2022-04-24 08:29 | Cardiology Consultation ---
Date of Consultation April 24, 2022 Assessment & Plan (1) Demand ischemia: (2) Elevated troponin: (3) Acute hypotension: (4) Sepsis: Plan 67-year-old man with history of renal transplant who was admitted with sepsis and associated hemodynamic derangements including hypotension and tachycardia, subsequently noted to have troponin peak and decay curve. Given his unremarkable echocardiogram, as well as the absence of any chest pain or ischemic ECG changes, this almost certainly represents demand ischemia secondary to his significant initial hemodynamic derangements. Although he could have underlying coronary artery disease, the fact that his hemodynamic lability did not result in angina or ECG changes suggests that the extent of any CAD is noncritical. He is already on aspirin and a statin and would only require mechanical intervention for symptom relief should he develop angina. Therefore, in the absence of symptoms, would not necessarily need to pursue further testing at this time. Would discontinue heparin infusion since this does not appear to be an acute thrombotic event. No other cardiac recommendations at this time, will sign off. Please contact if any symptoms or additional cardiac concerns develop. History of Present Illness Reason for Consultation: Elevated troponin Requesting Physician: Barron Thakkar MD Attending Physician: Farzaneh Shipman MD History of Present Illness 67-year-old man with history of renal transplant for end-stage renal disease, DM, HTN, chronic hepatitis B was admitted 04/23/2022 with hypotension and apparent sepsis and found to have an elevated troponin and abnormal ECG. Patient denies chest pain at any time. Of note, he had significant hypotension (BP 87/56 mmHg) and tachycardia (up to 127 bpm) on admission. His initial ECG suggest possible anteroseptal infarct, but this is not seen on subsequent ECGs and was likely due to to lead placement (please note that initial ECG from yesterday is erroneously filed under today's date at 18: 26). ECGs also sugge stive of old inferior infarct, but there is no evidence of this on current echocardiogram. At the time of my evaluation, the patient was comfortable and ambulating to the bathroom without difficulty, he denied any chest discomfort, dyspnea, palpitations, or other complaints. Allergies Allergy/AdvReac Type Severity Reaction Status Date / Time Penicillins Allergy Mild Rash Verified 01/30/22 13:11 Home Medications Medication Instructions Recorded Confirmed Type aspirin 81 mg chewable tablet 1 tab PO DAILY #30 tabs 11/23/18 01/30/22 History blood-glucose meter (OneTouch #1 ea 08/13/20 01/30/22 Rx Verio Meter) carvedilol 3.125 mg tablet (Coreg) 3.125 mg PO BID #60 tabs 10/03/20 01/30/22 Rx lancets (OneTouch UltraSoft #200 ea 02/27/21 01/30/22 Rx Lancets) entecavir 0.5 mg tablet (Baraclude) 0.5 mg PO DAILY 03/24/21 01/30/22 History mycophenolate mofetil 250 mg 1,000 mg PO BID 03/24/21 01/30/22 History capsule (CellCept) blood sugar diagnostic (OneTouch #200 strips 12/31/21 01/30/22 Rx Verio test strips) acetaminophen 500 mg tablet 500 mg PO Q8H PRN 01/30/22 01/30/22 History (Tylenol Extra Strength) belatacept 250 mg intravenous IV 01/30/22 01/30/22 History solution (Nulojix) betamethasone dipropionate 0.05 % 1 applic topical DAILY PRN 01/30/22 01/30/22 History topical cream blood-glucose meter,continuous 01/30/22 01/30/22 History (Dexcom G6 Museum Specialist misc) blood-glucose sensor (Dexcom G6 01/30/22 01/30/22 History Sensor device) blood-glucose transmitter (Dexcom 01/30/22 01/30/22 History G6 Transmitter device) docusate sodium 100 mg capsule 100 mg PO BID 01/30/22 01/30/22 History insulin aspart U-100 100 unit/mL 12 unit subcut TID 01/30/22 01/30/22 History subcutaneous cartridge (Novolog PenFill U-100 Insulin aspart) insulin glargine 100 unit/mL (3 24 unit subcut QPM 01/30/22 01/30/22 History mL) subcutaneous pen (Basaglar KwikPen U-100 Insulin) isoniazid 300 mg tablet 300 mg PO DAILY 01/30/22 01/30/22 History metformin 500 mg tablet 500 mg PO BID 01/30/22 01/30/22 History pen needle, diabetic 32 gauge x 01/30/22 01/30/22 History 532" (BD Jackie 2nd Gen Pen Needle) pyridoxine (vitamin B6) 50 mg 50 mg PO DAILY 01/30/22 01/30/22 History tablet sitagliptin phosphate 100 mg 100 mg PO DAILY 01/30/22 01/30/22 History tablet (Januvia) atorvastatin 10 mg tablet 10 mg PO DAILY #90 tabs 03/25/22 Rx Patient History Medical History Chronic hepatitis B Diabetes mellitus, type 2 History of kidney stones Hyperlipidemia Hypertension Positive PPD Psoriasis Psoriatic arthritis Tubulovillous adenoma Surgical History A-V fistula LEFT History of colonoscopy History of esophagogastroduodenoscopy (EGD) History of lithotripsy Renal transplant recipient Family History Father Myocardial infarction Family history of diabetes mellitus Other No family history of adverse response to anesthesia Denies family history of Ovarian cancer Prostate cancer Breast cancer Colorectal cancer Lung disease Social History Smoking Status: Former smoker Tobacco Type: Cigarettes Second Hand Exposure: No; Hx Alcohol Use: No Hx Substance Use: No Preferred Language: Mongolian Communication Ability: Effective Visual Impairment: Limited Hearing Ability: Normal Plaque Maker Required: No Beliefs That Will Affect Care: None marital status: Current Living Situation: Spouse Current Living Situation Comment: AND SON current occupational status: employed current occupation: SELF EMPLOYED How many Children do You have: 2 Other Information That Helps Us Care for You: No Feels Safe at Home: Yes Childhood Exposure to Second-Hand Smoke: No caffeine: Yes Dental Care, Regularly: Yes Physical Activity Frequency: 1-2 Times per Week Seatbelt Use: always Sunscreen Use: Yes Assistive Devices: Glasses Physical Exam Physical Exam: No distress. BP mildly hypertensive at 142/75 mmHg. Pulse 80 bpm and regular. Skin: no ecchymoses or generalized lesions. HEENT: unremarkable. Neck: Jugular venous pulse normal, faint transmitted carotid murmur. Lungs: clear. Cardiac: regular rhythm, normal S1 and intact aortic closure sound, 3/6 cresc endo decrescendo systolic ejection murmur at right upper sternal border rating to the back carotids, apex, axilla. No diastolic murmur or gallop. Abdomen: benign. Extremities: no edema, posterior tibial pulses diminished but palpable, radial pulses brisk. Neurologic: normal affect and conversation, nonfocal. Results & Data ([facility]) Vital Signs (Past 12 Hours) Vital Signs Temp Pulse Pulse Resp BP Pulse Ox O2 Del Method 04/24/22 08:09 98.2 F 86 18 125/66 96 Room Air 04/24/22 03:01 99.0 F 85 16 169/85 H 96 Room Air 04/23/22 23:16 100 H 04/23/22 23:16 100.8 F H 106 H 16 140/65 95 Room Air 04/24/22 00:26 99.5 F 95 H Laboratory Results Troponin shows a peak and decay with the following values: 1708 1440 2690 5094 4485 Sodium 131, potassium 4.1, BUN 23, creatinine 1.59. Magnesium 1.5. Hemoglobin 10.4 with white count of 16.35 and normal platelet count. Diagnostic Findings Initial ECG showed sinus rhythm with possible age indeterminate anteroseptal infarct, otherwise unremarkable. Subsequent ECG shows sinus rhythm with possible old inferior infarct, criteria for anteroseptal infarct are no longer present. None of the ECG shows significant ST or T wave abnormalities. Chest x-ray shows no acute abnormalities. Echocardiogram done today shows normal systolic function with no wall motion abnormalities, mild aortic stenosis noted. PG Care Time/CCT Total # of Minutes Spent Total Time Spent with Patient: Total time spent is greater than 50% in coordination of care (as documented) at patient's floor/unit and/or counseling patient: Coding Level of Care Code 33917 Inpt Consult Level 4 Diagnoses Demand ischemia I24.8 Elevated troponin R77.8 Acute hypotension I95.9 Sepsis A41.9; R65.20 Sepsis acute organ dysfunction status: with acute organ dysfunction Sepsis type: sepsis due to unspecified organism Severe sepsis acute organ dysfunction type: unspecified Severe sepsis shock status: without septic shock (1) Sepsis Sepsis acute organ dysfunction status: with acute organ dysfunction Sepsis type: sepsis due to unspecified organism Severe sepsis acute organ dysfunction type: unspecified Severe sepsis shock status: without septic shock Qualified Code(s): A41.9 - Sepsis, unspecified organism; R65.20 - Severe sepsis without septic shock
[2022-04-24] MEDS: PYRIDOXINE HCL 50 MG TAB PO SCH (08:38)
--- NOTE | 2022-04-24 09:08 | Electrocardiogram Report ---
Test Reason : Blood Pressure : / mmHG Vent. Rate : 093 BPM Atrial Rate : 093 BPM P-R Int : 160 ms QRS Dur : 066 ms QT Int : 330 ms P-R-T Axes : 054 014 038 degrees QTc Int : 410 ms Normal sinus rhythm Anteroseptal infarct , age undetermined Possible Old Inferior infarct Abnormal ECG When compared with ECG of 23-APR-2022 09:17, Borderline Criteria for Anteroseptal infarct is now Present Reconfirmed by Nahid Aiken ([id number]) on 04/24/2022 9:08:59 AM Referred By: Josue Razo Confirmed By:Nahid Aiken
--- NOTE | 2022-04-24 09:11 | Electrocardiogram Report ---
Test Reason : Blood Pressure : / mmHG Vent. Rate : 095 BPM Atrial Rate : 095 BPM P-R Int : 148 ms QRS Dur : 080 ms QT Int : 346 ms P-R-T Axes : 040 002 039 degrees QTc Int : 434 ms Normal sinus rhythm Possible Old Inferior infarct Abnormal ECG When compared with ECG of 23-APR-2022 18:26, Criteria for Anteroseptal infarct are no longer Present Confirmed by Nahid Aiken ([id number]) on 04/24/2022 9:10:41 AM Referred By: Josue Razo Confirmed By:Nahid Aiken
[2022-04-24] MEDS: INSULIN ASPART PER UNIT SC SCH ×4 (10:01→21:06)
[2022-04-24] MEDS: LANTUS PER UNIT CHARGE SQ SCH ×2 (10:02→21:06)
[2022-04-24] MEDS: CEFEPIME 1,000 MG in SYRINGE 0 ML IV SCH (10:32)
[2022-04-24] MEDS ORDERED: DAPTOmycin 400 MG in SYRINGE 0 ML IV SCH (11:00)
--- NOTE | 2022-04-24 12:25 | Hospitalist Progress Note ---
Date of Service April 24, 2022 Assessment & Plan (1) Sepsis: Plan: -Severe Sepsis secondary to UTI -On admission, Blood pressures were in the 80's systolic -Blood and urine cultures growing gram negatives, maybe E coli -Patient is currently stable after Fluids and antibiotics -Was given one dose of Cefepime and Daptomycin in the ED, will continue with both for now to cover broadly until his blood and urine cultures result, tailor abx to his results -Will consult Infectious diseases -My colleague Spoke with [place] [facility] adviced to hold Cellcept for now with concern for infection. -Continue to monitor (2) Elevated troponin: Plan: -Likely due to sepsis -Troponini is still trending up -Has been started on heparin by weight, although no chest pain or EKG changes -2 D ECHO pending -cardiology on consult, appreciate recs (3) MOOKIE (acute kidney injury): Plan: -Likely multifactorial including current UTI/sepsis, dehydration, and hypotension -Will continue IV fluids on admission, hold Carvedilol for now until hemodynamically stable -Monitor am Renal function (4) Chronic hepatitis B: Plan: -Stable liver function -Continue entecavir (5) Renal transplant recipient: Plan: -See Sepsis and MOOKIE (6) Diabetes: Plan: -Hold metformin -Normally takes 22 units of glargine HS, will decrease to 15 units HS for now with poor oral intake -Will continue with correction factor of 65 and carb ratio of 22 -DM II diet (7) Anemia: Plan: -Stable (8) Hyperlipidemia: Plan: -Continue statin (9) Hypertension: Plan: -Hemodynamically stable on admission -Hold carvedilol for now until he is more stable to avoid hypotension (10) Hyponatremia: Plan: -Serum sodium close to baseline -Is chronically hyponatremic -Monitor sodium levels in the am after adequate hydration (11) Hypomagnesemia: Plan: -Replace Plan continue hospitalization Admission and Anticipated Discharge Date Admission Date: April 23, 2022 Subjective patient seen and examined, lying quietly in bed, feels a little better Review of Systems Review of Systems: All systems reviewed are negative, apart from the ones contained in the history. Physical Exam Physical Exam: The patient is awake, alert and oriented 3, well developed and well nourished, normocephalic and atraumatic, lying in bed and in no acute distress. HEENT--PERRL, EOMI, mucous membranes and oropharynx mildly dry Neck--supple. No JVD. No bruits. Thyroid normal, trachea midline, no adenopathy. Heart--normal S1 and S2. No murmurs, rubs or gallops. Lungs--clear bilaterally, no respiratory distress, no accessory muscle use. Abdomen--normal bowel sounds and soft. Mild epigastric and left sided abdominal pain Extremities--no cyanosis or clubbing. No edema. Dermatologic--normal skin turgor, normal color, no abnormal lymph nodes, no rash. Neurologic--cranial nerves II through XII grossly intact. Rheumatologic--normal range of motion. Psychiatric--normal affect. Results & Data Results & Data ([facility]) Vital Signs (Past 12 Hours) Vital Signs Temp Pulse Resp BP Pulse Ox O2 Del Method 04/24/22 08:00 Room Air 04/24/22 11:04 98.1 F 81 18 142/75 H 97 Room Air 04/24/22 08:09 98.2 F 86 18 125/66 96 Room Air 04/24/22 03:01 99.0 F 85 16 169/85 H 96 Room Air 04/24/22 00:26 99.5 F 95 H PG Care Time/CCT Total # of Minutes Spent Total Time Spent with Patient: Total time spent is greater than 50% in coordination of care (as documented) at patient's floor/unit and/or counseling patient: Coding Level of Care Code 33822 Subseq Hosp Care Lvl 2 Diagnoses Sepsis A41.9 Elevated troponin R77.8 MOOKIE (acute kidney injury) N17.9 Chronic hepatitis B B18.1 Renal transplant recipient Z94.0 Diabetes E11.22; N18.4 Diabetes mellitus type: type 2 Diabetes mellitus long term care phlebotomist insulin use: without custodial use Diabetes mellitus complication status: with kidney complications Diabetes mellitus complication detail: with chronic kidney disease Chronic kidney disease stage: stage 4 (severe) Anemia D64.9 Anemia type: due to chronic kidney disease Hyperlipidemia E78.5 Hypertension I15.1; N28.89 Hypertension type: secondary to other renal disorders Hyponatremia E87.1 Hypomagnesemia E83.42 Time Spent (min) 35 (1) Diabetes Diabetes mellitus type: type 2 Diabetes mellitus custodial insulin use: without long term care phlebotomist use Diabetes mellitus complication status: with kidney complications Diabetes mellitus complication detail: with chronic kidney disease Chronic kidney disease stage: stage 4 (severe) Qualified Code(s): E11.22 - Type 2 diabetes mellitus with diabetic chronic kidney disease; N18.4 - Chronic kidney disease, stage 4 (severe) (2) Anemia Anemia type: due to chronic kidney disease (3) Hypertension Hypertension type: secondary to other renal disorders Qualified Code(s): I15.1 - Hypertension secondary to other renal disorders; N28.89 - Other specified disorders of kidney and ureter
--- NOTE | 2022-04-24 13:07 | Nephrology Consultation ---
Date of Consultation April 24, 2022 Assessment & Plan (1) Acute UTI (urinary tract infection): (2) MOOKIE (acute kidney injury): (3) Sepsis: (4) Renal transplant recipient: (5) Hyponatremia: (6) Hypomagnesemia: (7) Immunocompromised state: (8) Anemia: (9) Leukocytosis: Plan 67 y o gentlemen with history of renal transplant from living unrelated donor, with excellent allograft function, admitted with sepsis secondary to UTI and bacteremia with Gram-negative cohn a live, currently on empiric antibiotics with cefepime and daptomycin. On admission noted to have MOOKIE, creatinine 1.7 with baseline creatinine 1.1, creatinine 1.6 this morning. Electrolyte acceptable except mild hyponatremia and hypomagnesemia. Overall feeling better. On belatacept infusion monthly and CellCept which has been currently on hold as per recommendation from the transplant team. -- Continue to monitor renal function electrolyte, expect renal function to slowly start to improve. Encouraged to keep well hydrated. -- Continue to hold CellCept as per recommendation from the transplant team Will follow the Thank you for allowing me to participate in your patient's care. It was a pleasure to see Donald. History of Present Illness Reason for Consultation: history of renal transplant, admitted with sepsis secondary to UTI. Attending Physician: Farzaneh Shipman MD History of Present Illness Mr. Alexander Cerda (Freddie) is a 67-year-old male with ESRD due to DKD s/p Renal transplant, admitted to the hospital with sepsis secondary to UTI. Nephrology consult was requested to manage immunosuppressive medications while in hospital. EMR records are reviewed in detail during patient's visit. Donald presented to ER with 2 days history of not feeling well, fatigue, fever and chills at home. On arrival he was noted to be hypotensive and tachycardic. Did not have any chest pain or shortness of breath. He denied any dysuria, increased frequency of urination, burning, hematuria. Urinalysis was positive for UTI and he was started empirically on cefepime and daptomycin. Lab was also notable for leukocytosis, [place] [address] improved to 16,000 thousand this morning. Blood and urine culture positive for Gram-negative Bacilli. Lab was also notable for MOOKIE, creatinine was 1.7, slightly improved to 1.6 this morning with baseline creatinine since transplant 1.1. Transplant renal ultrasound was otherwise unremarkable. Magnesium was slightly low but other electrolyte acceptable Troponin was significantly elevated on repeated labs and he was started on heparin. This morning he was seen by Cardiology and felt that elevated troponin was mainly because of hypotension, tachycardia and stopped heparin as he was not having any shortness of breath or chest pain. CellCept has been on hold as per recommendation from transplant team. ESRD s/p living unrelated donor transplant at [facility] on 02/12/2021, was donor. The transplant was performed on February 12, 2021. No h/o rejection reported. CMV -/+, EBV +/+. Thymo induction. Maintenance IS with Belatacept and MMF. Up to date with COVID vaccination. Blood glucose control reported as very good. Medical history is notable for DM, HTN, significant history of kidney stones, hyperlipidemia, chronic hepatitis B, anemia, and psoriasis Allergies Allergy/AdvReac Type Severity Reaction Status Date / Time Penicillins Allergy Mild Rash Verified 01/30/22 13:11 Home Medications Medication Instructions Recorded Confirmed Type aspirin 81 mg chewable tablet 1 tab PO DAILY #30 tabs 11/23/18 01/30/22 History blood-glucose meter (Sonivate MedicalTouch #1 ea 08/13/20 01/30/22 Rx Verio Meter) carvedilol 3.125 mg tablet (Coreg) 3.125 mg PO BID #60 tabs 10/03/20 01/30/22 Rx lancets (OneTouch UltraSoft #200 ea 02/27/21 01/30/22 Rx Lancets) entecavir 0.5 mg tablet (Baraclude) 0.5 mg PO DAILY 03/24/21 01/30/22 History mycophenolate mofetil 250 mg 1,000 mg PO BID 03/24/21 01/30/22 History capsule (CellCept) blood sugar diagnostic (OneTouch #200 strips 12/31/21 01/30/22 Rx Verio test strips) acetaminophen 500 mg tablet 500 mg PO Q8H PRN 01/30/22 01/30/22 History (Tylenol Extra Strength) belatacept 250 mg intravenous IV 01/30/22 01/30/22 History solution (Nulojix) betamethasone dipropionate 0.05 % 1 applic topical DAILY PRN 01/30/22 01/30/22 History topical cream blood-glucose meter,continuous 01/30/22 01/30/22 History (Dexcom G6 Poleyard Supervisor misc) blood-glucose sensor (Dexcom G6 01/30/22 01/30/22 History Sensor device) blood-glucose transmitter (Dexcom 01/30/22 01/30/22 History G6 Transmitter device) docusate sodium 100 mg capsule 100 mg PO BID 01/30/22 01/30/22 History insulin aspart U-100 100 unit/mL 12 unit subcut TID 01/30/22 01/30/22 History subcutaneous cartridge (Novolog PenFill U-100 Insulin aspart) insulin glargine 100 unit/mL (3 24 unit subcut QPM 01/30/22 01/30/22 History mL) subcutaneous pen (Basaglar KwikPen U-100 Insulin) isoniazid 300 mg tablet 300 mg PO DAILY 01/30/22 01/30/22 History metformin 500 mg tablet 500 mg PO BID 01/30/22 01/30/22 History pen needle, diabetic 32 gauge x 01/30/22 01/30/22 History 5/32" (BD Jackie 2nd Gen Pen Needle) pyridoxine (vitamin B6) 50 mg 50 mg PO DAILY 01/30/22 01/30/22 History tablet sitagliptin phosphate 100 mg 100 mg PO DAILY 01/30/22 01/30/22 History tablet (Januvia) atorvastatin 10 mg tablet 10 mg PO DAILY #90 tabs 03/25/22 Rx Patient History Medical History Chronic hepatitis B Diabetes mellitus, type 2 History of kidney stones Hyperlipidemia Hypertension Positive PPD Psoriasis Psoriatic arthritis Tubulovillous adenoma Surgical History A-V fistula LEFT History of colonoscopy History of esophagogastroduodenoscopy (EGD) History of lithotripsy Renal transplant recipient Family History Father Myocardial infarction Family history of diabetes mellitus Other No family history of adverse response to anesthesia Denies family history of Ovarian cancer Prostate cancer Breast cancer Colorectal cancer Lung disease Social History Smoking Status: Former smoker Tobacco Type: Cigarettes Second Hand Exposure: No; Hx Alcohol Use: No Hx Substance Use: No Preferred Language: Macedonian Communication Ability: Effective Visual Impairment: Limited Hearing Ability: Normal Field Service Manager Required: No Beliefs That Will Affect Care: None marital status: Current Living Situation: Spouse Current Living Situation Comment: AND SON current occupational status: employed current occupation: SELF EMPLOYED How many Children do You have: 2 Other Information That Helps Us Care for You: No Feels Safe at Home: Yes Childhood Exposure to Second-Hand Smoke: No caffeine: Yes Dental Care, Regularly: Yes Physical Activity Frequency: 1-2 Times per Week Seatbelt Use: always Sunscreen Use: Yes Assistive Devices: Glasses Review of Systems Review of Systems: Detailed review of system was otherwise unremarkable. Physical Exam Constitutional: WD/WN, vitals as above no acute distress Eyes: + anicteric sclerae ENMT: Ears: no hearing impairment Neck: normal visual inspection Respiratory: Auscultation: lungs clear to auscultation bilaterally Cardiovascular: RRR, no murmur, no edema Gastrointestinal (Abdomen): Inspection/Auscultation: abdomen normal to inspection Musculoskeletal: Extremities: extremities normal to inspection Skin: examined skin with nor ashes Neurologic: no focal motor deficits Psychiatric: Orientation: alert and oriented x 3 Affect: euthymic affect Results & Data ([facility]) Vital Signs (Past 12 Hours) Vital Signs Temp Pulse Resp BP Pulse Ox O2 Del Method 04/24/22 08:00 Room Air 04/24/22 11:04 36.7 C 81 18 142/75 H 97 Room Air 04/24/22 08:09 36.8 C 86 18 125/66 96 Room Air 04/24/22 03:01 37.2 C 85 16 169/85 H 96 Room Air PG Care Time/CCT Total # of Minutes Spent Total Time Spent with Patient: Total time spent is greater than 50% in coordination of care (as documented) at patient's floor/unit and/or counseling patient: Coding Level of Care Code 23891 Inpt Consult Level 5 Diagnoses Acute UTI (urinary tract infection) N39.0 MOOKIE (acute kidney injury) N17.9 Sepsis A41.9; R65.20 Sepsis acute organ dysfunction status: with acute organ dysfunction Sepsis type: sepsis due to unspecified organism Severe sepsis acute organ dysfunction type: unspecified Severe sepsis shock status: without septic shock Renal transplant recipient Z94.0 Hyponatremia E87.1 Hypomagnesemia E83.42 Immunocompromised state D84.9 Anemia D64.9 Anemia type: due to chronic kidney disease Leukocytosis D72.829 Leukocytosis type: unspecified (1) Sepsis Sepsis acute organ dysfunction status: with acute organ dysfunction Sepsis type: sepsis due to unspecified organism Severe sepsis acute organ dysfunction type: unspecified Severe sepsis shock status: without septic shock Qualified Code(s): A41.9 - Sepsis, unspecified organism; R65.20 - Severe sepsis without septic shock (2) Anemia Anemia type: due to chronic kidney disease (3) Leukocytosis Leukocytosis type: unspecified Qualified Code(s): D72.829 - Elevated white blood cell count, unspecified
--- NOTE | 2022-04-24 13:15 | XCELERA ---
[id number]
--- NOTE | 2022-04-24 17:48 | Infectious Disease Consult ---
Date of Consultation April 24, 2022 Assessment & Plan (1) Sepsis: (2) Acute UTI (urinary tract infection): (3) Leukocytosis: (4) Renal transplant recipient: (5) Chronic hepatitis B: Plan 67 year old male with a PMH significant for ESRD S/P living unrelated donor transplant on 02/12/21 on MMF and belatacept , DM, HTN, Hyperlipidemia, psoriasis, chronic hepatitis B on entecavir, who was admitted to [facility] ED on 04/23/22 fatigue, fever. ID consulted for Ecoli sepsis secondary to UTI in renal transplant. See HPI, Patient initially hypotensive improved with fluids. leukocytosis 24 with left shift of 21, stable Hgb at 12.7, Cr. of 1.69 (baseline 1.2) troponin elevation, PCT 3.85, UA showed 2+ protein, 3+ blood, negative Nitrites, 3+ LE, >30 Wbcs. 04/23 Blood cultures positive for GN bacilli 2/2, BCID showed positive Ecoli, Ucx > 100k GNR Sensi P Renal U/S Normal sonographic examination of the right pelvic renal transplant. Patient started on Cefepime and Daptomycin. MMF held. ID consulted today. O/N, Wbc improved to 16, AST inc slightly to 41, Troponin trending down 5k ? [id number] Discussion: patient with UTI induced sepsis. This is likely Ecoli based on BCID. He is on Cefepime 1G IV BID his GFR is ~41 today, I would favor increasing dose to Cefepime 2G IV BID, DC D aptomycin Repeat blood cultures to ensure clearance. Recommend F/U on blood cultures Repeat blood cultures today Increase dose Cefepime 2G IV BID DC Daptomycin as no MRSA or VRE Thank you for allowing me to participate in the care of your patient. Please page with any questions over the weekend, I will be back to service Francine Felix MD [facility], [facility] Consultation Information This patient recommendation is based on a telemedicine consult request which was completed asynchronously through chart review and information provided by the primary physician. The patient was not seen or examined today. The evaluation is consultative in nature and all patient care and treatment decisions can either be accepted or rejected by the patient's primary hospital-based treating physician using their own independent medical judgment for their patient. Sustainability Purchasing Agent contact information: Please call [facility] Call Center . (Phone Number For Physician Use Only) Time Spent Reviewing Chart: 31+ minutes History of Present Illness Reason for Consultation: Sepsis, Renal Transplant Requesting Physician: Dr. Farzaneh Shipman MD Attending Physician: Farzaneh Shipman MD History of Present Illness 67 year old male with a PMH significant for ESRD S/P living unrelated donor transplant on 02/12/21 on MMF and belatacept , DM, HTN, Hyperlipidemia, psoriasis, chronic hepatitis B on entecavir, who was admitted to [facility] ED on 04/23/22 fatigue, fever. ID consulted for Gram negative sepsis. HPI per EMR and discussion with primary team. ESRD s/p living unrelated donor transplant at [facility] on 02/12/2021, was donor. CMV -/+, EBV +/+. Thymo induction. No h/o rejection reported. Currently on Belatacept and MMF. Last infusion of belatacept 1 week prior to admit. Per EMR, patient has had progressive fevers to 102 F, chills, weakness, and poor oral intake over past few days [employer]. In the ED, he was initially afebrile but low B 80s/50s improve with IV fluids, labs notable for leukocytosis 24 with left shift of 21, stable Hgb at 12.7, Cr. of 1.69 (baseline 1.2) troponin elevation, PCT 3.85, UA showed 2+ protein, 3+ blood, negative Nitrites, 3+ LE, >30 Wbcs. 04/23 Blood cultures positive for GN bacilli 2/2, BCID showed positive Ecoli, Ucx > 100k GNR Sensi P Renal U/S Normal sonographic examination of the right pelvic renal transplant. Patient started on Cefepime and Daptomycin. MMF held. ID consulted today. O/N, Wbc improved to 16, AST inc slightly to 41, Troponin trending down 5k ? [id number] Allergies Allergy/AdvReac Type Severity Reaction Status Date / Time Penicillins Allergy Mild Rash Verified 01/30/22 13:11 Home Medications Medication Instructions Recorded Confirmed Type aspirin 81 mg chewable tablet 1 tab PO DAILY #30 tabs 11/23/18 01/30/22 History blood-glucose meter (OneTouch #1 ea 08/13/20 01/30/22 Rx Verio Meter) carvedilol 3.125 mg tablet (Coreg) 3.125 mg PO BID #60 tabs 10/03/20 01/30/22 Rx lancets (MartManiaTouch UltraSoft #200 ea 02/27/21 01/30/22 Rx Lancets) entecavir 0.5 mg tablet (Baraclude) 0.5 mg PO DAILY 03/24/21 01/30/22 History mycophenolate mofetil 250 mg 1,000 mg PO BID 03/24/21 01/30/22 History capsule (CellCept) blood sugar diagnostic (MartManiaTouch #200 strips 12/31/21 01/30/22 Rx Verio test strips) acetaminophen 500 mg tablet 500 mg PO Q8H PRN 01/30/22 01/30/22 History (Tylenol Extra Strength) belatacept 250 mg intravenous IV 01/30/22 01/30/22 History solution (Nulojix) betamethasone dipropionate 0.05 % 1 applic topical DAILY PRN 01/30/22 01/30/22 History topical cream blood-glucose meter,continuous 01/30/22 01/30/22 History (Dexcom G6 Installation Tech misc) blood-glucose sensor (Dexcom G6 01/30/22 01/30/22 History Sensor device) blood-glucose transmitter (Dexcom 01/30/22 01/30/22 History G6 Transmitter device) docusate sodium 100 mg capsule 100 mg PO BID 01/30/22 01/30/22 History insulin aspart U-100 100 unit/mL 12 unit subcut TID 01/30/22 01/30/22 History subcutaneous cartridge (Novolog PenFill U-100 Insulin aspart) insulin glargine 100 unit/mL (3 24 unit subcut QPM 01/30/22 01/30/22 History mL) subcutaneous pen (Basaglar KwikPen U-100 Insulin) isoniazid 300 mg tablet 300 mg PO DAILY 01/30/22 01/30/22 History metformin 500 mg tablet 500 mg PO BID 01/30/22 01/30/22 History pen needle, diabetic 32 gauge x 01/30/22 01/30/22 History 5/32" (BD Jackie 2nd Gen Pen Needle) pyridoxine (vitamin B6) 50 mg 50 mg PO DAILY 01/30/22 01/30/22 History tablet sitagliptin phosphate 100 mg 100 mg PO DAILY 01/30/22 01/30/22 History tablet (Januvia) atorvastatin 10 mg tablet 10 mg PO DAILY #90 tabs 03/25/22 Rx Patient History Medical History Chronic hepatitis B Diabetes mellitus, type 2 History of kidney stones Hyperlipidemia Hypertension Positive PPD Psoriasis Psoriatic arthritis Tubulovillous adenoma Surgical History A-V fistula LEFT History of colonoscopy History of esophagogastroduodenoscopy (EGD) History of lithotripsy Renal transplant recipient Family History Father Myocardial infarction Family history of diabetes mellitus Other No family history of adverse response to anesthesia Denies family history of Ovarian cancer Prostate cancer Breast cancer Colorectal cancer Lung disease Social History Smoking Status: Former smoker Tobacco Type: Cigarettes Second Hand Exposure: No; Hx Alcohol Use: No Hx Substance Use: No Preferred Language: Iranian Communication Ability: Effective Visual Impairment: Limited Hearing Ability: Normal Topper Press Operator Required: No Beliefs That Will Affect Care: None marital status: Current Living Situation: Spouse Current Living Situation Comment: AND SON current occupational status: employed current occupation: SELF EMPLOYED How many Children do You have: 2 Other Information That Helps Us Care for You: No Feels Safe at Home: Yes Childhood Exposure to Second-Hand Smoke: No caffeine: Yes Dental Care, Regularly: Yes Physical Activity Frequency: 1-2 Times per Week Seatbelt Use: always Sunscreen Use: Yes Assistive Devices: None Results & Data ([facility]) Vital Signs (Past 12 Hours) Vital Signs Temp Pulse Resp BP Pulse Ox O2 Del Method 04/24/22 15:59 36.8 C 81 20 134/72 97 Room Air 04/24/22 08:00 Room Air 04/24/22 11:04 36.7 C 81 18 142/75 H 97 Room Air 04/24/22 08:09 36.8 C 86 18 125/66 96 Room Air Laboratory Results Laboratory Results - last 48 hr 04/23/22 04/23/22 04/23/22 09:20 09:20 09:20 WBC 24.05 H RBC 4.12 L Hgb 12.7 L Hct 38.4 L MCV 93.2 MCH 30.8 MCHC 33.1 RDW Std Deviation 44.4 RDW Coeff of Yves 13.0 Plt Count 206 MPV 9.5 Immature Gran % (Auto) 0.9 Neut % (Auto) 89.7 Lymph % (Auto) 2.0 [place] % (Auto) 6.9 Eos % (Auto) 0.3 Baso % (Auto) 0.2 Neut # (Auto) 21.54 H Lymph # (Auto) 0.49 L [place] # (Auto) 1.67 H Eos # (Auto) 0.08 Baso # (Auto) 0.06 Immature Gran # (Auto) 0.21 H PT INR APTT PTT Ratio Sodium 129 L Potassium 4.1 Chloride 95 L Carbon Dioxide 25 Anion Gap 9 BUN 18 Creatinine 1.69 H Est Cr Clr Drug Dosing 38.5 Est GFR ( Amer) 47.3 Est GFR (Non-Af Amer) 40.8 BUN/Creatinine Ratio 10.7 Glucose 216 H POC Glucose Lactate 2.0 Calcium 10.7 H Magnesium 1.5 L Total Bilirubin 0.9 Direct Bilirubin 0.3 H AST 20 ALT 18 Alkaline Phosphatase 82 Troponin I High Sens 1708.5 H* Total Protein 7.1 Albumin 4.1 Globulin Albumin/Globulin Ratio Procalcitonin Urine Color Urine Appearance Urine pH Ur Specific [place] Urine Protein Urine Glucose (UA) Urine Ketones Urine Blood Urine Nitrite Urine Bilirubin Urine Urobilinogen Ur Leukocyte Esterase Urine WBC (Auto) Urine RBC (Auto) U Hyaline Cast (Auto) U Epithel Cells (Auto) Urine Bacteria (Auto) Granular Casts Urine Yeast SARS-CoV-2 (PCR) Enterobacterales (PCR) E. coli (PCR) Influenza Type A (PCR) Influenza Type B (PCR) RSV (RT-PCR) mcr-1 Colistin Res Gene PCR blaIMP Car res Gene PCR KPC-Carbap Res Gene PCR blaNDM Car Res Gene PCR OXA-48 Carbapenem Resis Gene (PCR) blaVIM Car Res Gene PCR CTX-M Gene Resistance (PCR) Bld Cult ID Panel PCR 04/23/22 04/23/22 04/23/22 09:20 09:26 09:32 WBC RBC Hgb Hct MCV MCH MCHC RDW Std Deviation RDW Coeff of Yves Plt Count MPV Immature Gran % (Auto) Neut % (Auto) Lymph % (Auto) [place] % (Auto) Eos % (Auto) Baso % (Auto) Neut # (Auto) Lymph # (Auto) [place] # (Auto) Eos # (Auto) Baso # (Auto) Immature Gran # (Auto) PT INR APTT PTT Ratio Sodium Potassium Chloride Carbon Dioxide Anion Gap BUN Creatinine Est Cr Clr Drug Dosing Est GFR ( Amer) Est GFR (Non-Af Amer) BUN/Creatinine Ratio Glucose POC Glucose Lactate Calcium Magnesium Total Bilirubin Direct Bilirubin AST ALT Alkaline Phosphatase Troponin I High Sens Total Protein Albumin Globulin Albumin/Globulin Ratio Procalcitonin 3.85 H Urine Color Dark Yellow Urine Appearance Turbid A Urine pH 5.5 Ur Specific [place] 1.026 Urine Protein 2+ H Urine Glucose (UA) Trace H Urine Ketones Trace H Urine Blood 3+ H Urine Nitrite Negative Urine Bilirubin Negative Urine Urobilinogen Negative Ur Leukocyte Esterase 3+ H Urine WBC (Auto) >30 H Urine RBC (Auto) 0-4 U Hyaline Cast (Auto) 1-5 U Epithel Cells (Auto) >30 H Urine Bacteria (Auto) 4+ H Granular Casts 1-5 H Urine Yeast Not Reportable SARS-CoV-2 (PCR) NEGATIVE Enterobacterales (PCR) E. coli (PCR) Influenza Type A (PCR) Negative Influenza Type B (PCR) Negative RSV (RT-PCR) Negative mcr-1 [place] Res Gene PCR blaIMP Car res Gene PCR KPC-Carbap Res Gene PCR blaNDM Car Res Gene PCR OXA-48 Carbapenem Resis Gene (PCR) blaVIM Car Res Gene PCR CTX-M Gene Resistance (PCR) Bld Cult ID Panel PCR 04/23/22 04/23/22 04/23/22 09:42 12:22 12:31 WBC RBC Hgb Hct MCV MCH MCHC RDW Std Deviation RDW Coeff of Yves Plt Count MPV Immature Gran % (Auto) Neut % (Auto) Lymph % (Auto) [place] % (Auto) Eos % (Auto) Baso % (Auto) Neut # (Auto) Lymph # (Auto) [place] # (Auto) Eos # (Auto) Baso # (Auto) Immature Gran # (Auto) PT INR APTT PTT Ratio Sodium Potassium Chloride Carbon Dioxide Anion Gap BUN Creatinine Est Cr Clr Drug Dosing Est GFR ( Amer) Est GFR (Non-Af Amer) BUN/Creatinine Ratio Glucose POC Glucose 84 Lactate Calcium Magnesium Total Bilirubin Direct Bilirubin AST ALT Alkaline Phosphatase Troponin I High Sens 1440.8 H* Total Protein Albumin Globulin Albumin/Globulin Ratio Procalcitonin Urine Color Urine Appearance Urine pH Ur Specific [place] Urine Protein Urine Glucose (UA) Urine Ketones Urine Blood Urine Nitrite Urine Bilirubin Urine Urobilinogen Ur Leukocyte Esterase Urine WBC (Auto) Urine RBC (Auto) U Hyaline Cast (Auto) U Epithel Cells (Auto) Urine Bacteria (Auto) Granular Casts Urine Yeast SARS-CoV-2 (PCR) Enterobacterales (PCR) DETECTED A E. coli (PCR) DETECTED A Influenza Type A (PCR) Influenza Type B (PCR) RSV (RT-PCR) mcr-1 [place] Res Gene PCR Not Detected blaIMP Car res Gene PCR Not Detected KPC-Carbap Res Gene PCR Not Detected blaNDM Car Res Gene PCR Not Detected OXA-48 Carbapenem Resis Gene (PCR) Not Detected blaVIM Car Res Gene PCR Not Detected CTX-M Gene Resistance (PCR) Not Detected Bld Cult ID Panel PCR See PCR Comment 04/23/22 04/23/22 04/23/22 16:45 16:46 20:16 WBC RBC Hgb Hct MCV MCH MCHC RDW Std Deviation RDW Coeff of Yves Plt Count MPV Immature Gran % (Auto) Neut % (Auto) Lymph % (Auto) [place] % (Auto) Eos % (Auto) Baso % (Auto) Neut # (Auto) Lymph # (Auto) [place] # (Auto) Eos # (Auto) Baso # (Auto) Immature Gran # (Auto) PT INR APTT PTT Ratio Sodium Potassium Chloride Carbon Dioxide Anion Gap BUN Creatinine Est Cr Clr Drug Dosing Est GFR ( Amer) Est GFR (Non-Af Amer) BUN/Creatinine Ratio Glucose POC Glucose 140 H 140 H Lactate Calcium Magnesium Total Bilirubin Direct Bilirubin AST ALT Alkaline Phosphatase Troponin I High Sens 2690.4 H* D Total Protein Albumin Globulin Albumin/Globulin Ratio Procalcitonin Urine Color Urine Appearance Urine pH Ur Specific [place] Urine Protein Urine Glucose (UA) Urine Ketones Urine Blood Urine Nitrite Urine Bilirubin Urine Urobilinogen Ur Leukocyte Esterase Urine WBC (Auto) Urine RBC (Auto) U Hyaline Cast (Auto) U Epithel Cells (Auto) Urine Bacteria (Auto) Granular Casts Urine Yeast SARS-CoV-2 (PCR) Enterobacterales (PCR) E. coli (PCR) Influenza Type A (PCR) Influenza Type B (PCR) RSV (RT-PCR) mcr-1 [place] Res Gene PCR blaIMP Car res Gene PCR KPC-Carbap Res Gene PCR blaNDM Car Res Gene PCR OXA-48 Carbapenem Resis Gene (PCR) blaVIM Car Res Gene PCR CTX-M Gene Resistance (PCR) Bld Cult ID Panel PCR 04/23/22 04/24/22 04/24/22 22:58 00:52 06:52 WBC 16.35 H RBC 3.32 L Hgb 10.4 L Hct 30.7 L MCV 92.5 MCH 31.3 MCHC 33.9 RDW Std Deviation 44.8 RDW Coeff of Yves 13.2 Plt Count 150 MPV 9.8 Immature Gran % (Auto) Neut % (Auto) Lymph % (Auto) [place] % (Auto) Eos % (Auto) Baso % (Auto) Neut # (Auto) Lymph # (Auto) [place] # (Auto) Eos # (Auto) Baso # (Auto) Immature Gran # (Auto) PT 13.8 H INR 1.3 H APTT 39.5 H PTT Ratio 1.4 Sodium Potassium Chloride Carbon Dioxide Anion Gap BUN Creatinine Est Cr Clr Drug Dosing Est GFR ( Amer) Est GFR (Non-Af Amer) BUN/Creatinine Ratio Glucose POC Glucose Lactate Calcium Magnesium Total Bilirubin Direct Bilirubin AST ALT Alkaline Phosphatase Troponin I High Sens 5094.6 H* D Total Protein Albumin Globulin Albumin/Globulin Ratio Procalcitonin Urine Color Urine Appearance Urine pH Ur Specific [place] Urine Protein Urine Glucose (UA) Urine Ketones Urine Blood Urine Nitrite Urine Bilirubin Urine Urobilinogen Ur Leukocyte Esterase Urine WBC (Auto) Urine RBC (Auto) U Hyaline Cast (Auto) U Epithel Cells (Auto) Urine Bacteria (Auto) Granular Casts Urine Yeast SARS-CoV-2 (PCR) Enterobacterales (PCR) E. coli (PCR) Influenza Type A (PCR) Influenza Type B (PCR) RSV (RT-PCR) mcr-1 [place] Res Gene PCR blaIMP Car res Gene PCR KPC-Carbap Res Gene PCR blaNDM Car Res Gene PCR OXA-48 Carbapenem Resis Gene (PCR) blaVIM Car Res Gene PCR CTX-M Gene Resistance (PCR) Bld Cult ID Panel PCR 04/24/22 04/24/22 04/24/22 06:52 06:52 07:33 WBC RBC Hgb Hct MCV MCH MCHC RDW Std Deviation RDW Coeff of Yves Plt Count MPV Immature Gran % (Auto) Neut % (Auto) Lymph % (Auto) [place] % (Auto) Eos % (Auto) Baso % (Auto) Neut # (Auto) Lymph # (Auto) [place] # (Auto) Eos # (Auto) Baso # (Auto) Immature Gran # (Auto) PT INR APTT 76.0 H* PTT Ratio 2.8 Sodium 131 L Potassium 4.1 Chloride 102 Carbon Dioxide 24 Anion Gap 5 BUN 23 Creatinine 1.59 H Est Cr Clr Drug Dosing 41.5 Est GFR ( Amer) 50.9 Est GFR (Non-Af Amer) 44.0 BUN/Creatinine Ratio 14.5 Glucose 137 H POC Glucose 137 H Lactate Calcium 9.9 Magnesium 1.5 L Total Bilirubin 0.5 Direct Bilirubin AST 41 H ALT 20 Alkaline Phosphatase 63 Troponin I High Sens 4485.7 H* Total Protein 5.5 L D Albumin 3.0 L Globulin 2.5 Albumin/Globulin Ratio 1.2 Procalcitonin Urine Color Urine Appearance Urine pH Ur Specific [place] Urine Protein Urine Glucose (UA) Urine Ketones Urine Blood Urine Nitrite Urine Bilirubin Urine Urobilinogen Ur Leukocyte Esterase Urine WBC (Auto) Urine RBC (Auto) U Hyaline Cast (Auto) U Epithel Cells (Auto) Urine Bacteria (Auto) Granular Casts Urine Yeast SARS-CoV-2 (PCR) Enterobacterales (PCR) E. coli (PCR) Influenza Type A (PCR) Influenza Type B (PCR) RSV (RT-PCR) mcr-1 [place] Res Gene PCR blaIMP Car res Gene PCR KPC-Carbap Res Gene PCR blaNDM Car Res Gene PCR OXA-48 Carbapenem Resis Gene (PCR) blaVIM Car Res Gene PCR CTX-M Gene Resistance (PCR) Bld Cult ID Panel PCR 04/24/22 04/24/22 04/24/22 10:28 11:41 16:32 WBC RBC Hgb Hct MCV MCH MCHC RDW Std Deviation RDW Coeff of Yves Plt Count MPV Immature Gran % (Auto) Neut % (Auto) Lymph % (Auto) [place] % (Auto) Eos % (Auto) Baso % (Auto) Neut # (Auto) Lymph # (Auto) [place] # (Auto) Eos # (Auto) Baso # (Auto) Immature Gran # (Auto) PT INR APTT PTT Ratio Sodium Potassium Chloride Carbon Dioxide Anion Gap BUN Creatinine Est Cr Clr Drug Dosing Est GFR ( Amer) Est GFR (Non-Af Amer) BUN/Creatinine Ratio Glucose POC Glucose 119 H 125 H Lactate Calcium Magnesium Total Bilirubin Direct Bilirubin AST ALT Alkaline Phosphatase Troponin I High Sens 3969.4 H* Total Protein Albumin Globulin Albumin/Globulin Ratio Procalcitonin Urine Color Urine Appearance Urine pH Ur Specific [place] Urine Protein Urine Glucose (UA) Urine Ketones Urine Blood Urine Nitrite Urine Bilirubin Urine Urobilinogen Ur Leukocyte Esterase Urine WBC (Auto) Urine RBC (Auto) U Hyaline Cast (Auto) U Epithel Cells (Auto) Urine Bacteria (Auto) Granular Casts Urine Yeast SARS-CoV-2 (PCR) Enterobacterales (PCR) E. coli (PCR) Influenza Type A (PCR) Influenza Type B (PCR) RSV (RT-PCR) mcr-1 [place] Res Gene PCR blaIMP Car res Gene PCR KPC-Carbap Res Gene PCR blaNDM Car Res Gene PCR OXA-48 Carbapenem Resis Gene (PCR) blaVIM Car Res Gene PCR CTX-M Gene Resistance (PCR) Bld Cult ID Panel PCR Microbiology 04/23/22 09:42 Blood Aerobic Blood Culture - Preliminary No growth in Aerobic bottle after 24 hours. 04/23/22 09:42 Blood Anaerobic Blood Culture - Preliminary Gram negative bacilli 04/23/22 09:20 Blood Aerobic Blood Culture - Preliminary Gram negative bacilli 04/23/22 09:20 Blood Anaerobic Blood Culture - Preliminary Gram negative bacilli 04/23/22 09:26 Urine,Clean Catch Urine Culture - Preliminary Gram negative bacilli Diagnostic Findings Chest X-Ray 04/23/22 09:17 SINGLE VIEW CHEST CLINICAL HISTORY: Sepsis. FINDINGS: An AP, portable, upright chest radiograph is compared to study dated 10/26/2017. The cardiomediastinal silhouette is top normal for projection. The pulmonary vasculature is noncongested. Chronic interstitial thickening is previous. There is mild bibasilar scarring/atelectasis. No airspace consolidation or large pleural effusion is identified. No pneumothorax is seen. The skeletal structures are osteopenic. The bony thorax is grossly intact. IMPRESSION: No acute cardiopulmonary abnormality is identified. ACT 112: Negative or not required by law. Electronically signed by: Dean Casas M.D. 04/23/2022 9:52 AM Renal Ultrasound 04/23/22 11:25 ULTRASOUND RENAL TRANSPLANT CLINICAL HISTORY: Urinary tract infection. Renal insufficiency. COMPARISON STUDY: No priors. TECHNIQUE: Multiple lynn scale, color Doppler, and spectral Doppler sonograms of the transplanted kidney were obtained in the transverse and longitudinal planes. FINDINGS: The transcend kidney is identified in the right pelvis. The renal transplant is normal in size measuring 11.8 cm in length. Cortical echotexture is within normal limits and there is no hydronephrosis. The resistive index in the segmental arterial branches ranges from 0.57 to 0.79 . The velocities within the main renal artery within normal limits measured 169 cm/s. The main renal vein is patent. No perirenal fluid collection is seen. Survey imaging of the upper abdomen shows atrophic and echogenic lummi kidneys. The bladder is partially decompressed and grossly unremarkable. Ureteral jets were not seen. IMPRESSION: Normal sonographic examination of the right pelvic renal transplant. ACT 112: Negative or not required by law. Electronically signed by: Dean Casas M.D. 04/23/2022 12:55 PM Medications Administered Home Medications Medication Instructions Recorded Confirmed Last Taken aspirin 81 mg chewable tablet 1 tab PO DAILY #30 tabs 11/23/18 01/30/22 01/07/21 20:00 blood-glucose meter (MartManiaTouch #1 ea 08/13/20 01/30/22 Unknown Verio Meter) carvedilol 3.125 mg tablet (Coreg) 3.125 mg PO BID #60 tabs 10/03/20 01/30/22 01/07/21 04:00 lancets (MartManiaTouch UltraSoft #200 ea 02/27/21 01/30/22 Unknown Lancets) entecavir 0.5 mg tablet (Baraclude) 0.5 mg PO DAILY 03/24/21 01/30/22 Unknown mycophenolate mofetil 250 mg 1,000 mg PO BID 03/24/21 01/30/22 Unknown capsule (CellCept) blood sugar diagnostic (OneTouch #200 strips 12/31/21 01/30/22 Unknown Verio test strips) acetaminophen 500 mg tablet 500 mg PO Q8H PRN 01/30/22 01/30/22 Unknown (Tylenol Extra Strength) belatacept 250 mg intravenous IV 01/30/22 01/30/22 Unknown solution (Nulojix) betamethasone dipropionate 0.05 % 1 applic topical DAILY PRN 01/30/22 01/30/22 Unknown topical cream blood-glucose meter,continuous 01/30/22 01/30/22 Unknown (Dexcom G6 Installation Tech misc) blood-glucose sensor (Dexcom G6 01/30/22 01/30/22 Unknown Sensor device) blood-glucose transmitter (Dexcom 01/30/22 01/30/22 Unknown G6 Transmitter device) docusate sodium 100 mg capsule 100 mg PO BID 01/30/22 01/30/22 Unknown insulin aspart U-100 100 unit/mL 12 unit subcut TID 01/30/22 01/30/22 Unknown subcutaneous cartridge (Novolog PenFill U-100 Insulin aspart) insulin glargine 100 unit/mL (3 24 unit subcut QPM 01/30/22 01/30/22 Unknown mL) subcutaneous pen (Basaglar KwikPen U-100 Insulin) isoniazid 300 mg tablet 300 mg PO DAILY 01/30/22 01/30/22 Unknown metformin 500 mg tablet 500 mg PO BID 01/30/22 01/30/22 Unknown pen needle, diabetic 32 gauge x 01/30/22 01/30/22 Unknown 5/32" (BD Jackie 2nd Gen Pen Needle) pyridoxine (vitamin B6) 50 mg 50 mg PO DAILY 01/30/22 01/30/22 Unknown tablet sitagliptin phosphate 100 mg 100 mg PO DAILY 01/30/22 01/30/22 Unknown tablet (Januvia) atorvastatin 10 mg tablet 10 mg PO DAILY #90 tabs 03/25/22 Unknown Active Medications Generic Name Dose Route Start Last Admin Trade Name Freq PRN Reason Stop Dose Admin Acetaminophen 650 mg 04/23/22 11:36 04/23/22 22:57 Acetaminophen 325 Mg Tab PO 05/23/22 11:35 650 mg Q4H PRN Administration Pain (1,2,3) Or Fever Aspirin 81 mg 04/24/22 09:00 04/24/22 07:54 Aspirin 81 Mg Chew PO 05/24/22 08:59 81 mg DAILY NEHA Administration Atorvastatin Calcium 10 mg 04/24/22 09:00 04/24/22 07:54 Atorvastatin 10 Mg Tab PO 05/24/22 08:59 10 mg DAILY NEHA Administration Daptomycin 400 mg/ Syringe 8 mls @ 4 mls/min 04/24/22 11:00 04/24/22 10:32 IV 05/04/22 10:59 4 mls/min Q24H NEHA Administration Protocol Cefepime HCl 1,000 mg/ Syringe 10 mls @ 5 mls/min 04/23/22 22:00 04/24/22 10:32 IV 05/03/22 21:59 5 mls/min Q12H NEHA Administration Protocol Heparin Sodium/Dextrose 25,000 units in 500 mls @ 15 mls/hr 04/24/22 01:00 04/24/22 13:43 Heparin Sodium/Dextrose IV 05/24/22 00:59 Infused .Q24H NEHA Titration Protocol 750 UNITS/HR Insulin Aspart 0 units 04/23/22 16:30 04/24/22 16:35 Insulin Aspart Per Unit SC 05/23/22 16:29 Not Given ACHS NEHA Insulin Glargine 15 units 04/23/22 21:00 04/24/22 10:02 Lantus Per Unit Charge SQ 05/23/22 20:59 15 units BID NEHA Administration Miscellaneous 1 each 04/23/22 16:00 04/24/22 13:01 Entecavir-Order Awaiting Action N/A 05/23/22 15:59 Not Given QS NEHA Pyridoxine HCl 50 mg 04/24/22 09:00 04/24/22 08:38 Pyridoxine Hcl 50 Mg Tab PO 05/24/22 08:59 Not Given DAILY NEHA (1) Leukocytosis Leukocytosis type: unspecified Qualified Code(s): D72.829 - Elevated white blood cell count, unspecified
[2022-04-24] MEDS: CEFEPIME 2,000 MG in SYRINGE 0 ML IV SCH (21:51)
[2022-04-25] MEDS: HEPARIN SODIUM/DEXTROSE 25,000 UNITS/500 ML BAG IV SCH (01:07)
[2022-04-25] MEDS: ACETAMINOPHEN 325 MG TAB PO PRN ×2 (03:31→23:27)
[2022-04-25 05:44] LABS: Hematocrit (blood only) 31.8 % (40.1-51.0); Hemoglobin 10.5 g/dl (14.0-18.0); Mean Corpuscular Hemoglobin 30.9 pg (25.0-34.0); Mean Corpuscular Volume 93.5 fL (80.0-100.0); Platelet Count 160 K/uL (130-400); RDW Coefficient of Variation 13.1 % (11.5-14.5); RDW Standard Deviation 44.9 fL (36.4-46.3); White Blood Count 9.62 K/ul (4.8-10.8)
[2022-04-25 06:03] LABS: Albumin Globulin Ratio 1.2 (0.9-2); Albumin Level 3.1 gm/dl (3.4-5.0); BUN Creatinine Ratio 13.6 (10-20); Bilirubin,Total 0.4 mg/dl (0.2-1.0); Calcium 10.7 mg/dl (8.5-10.1); Creatinine Clr Calc Pharmacy 44.9 ml/min; Est GFR (Non-African American) 48.3 ml/min; Globulin 2.6 gm/dl (2.5-4.0); Potassium 3.9 mmol/L (3.5-5.1); Total Protein 5.7 gm/dl (6.0-8.3)
[2022-04-25] MEDS: INSULIN ASPART PER UNIT SC SCH ×4 (08:44→20:42)
[2022-04-25] MEDS: CEFEPIME 2,000 MG in SYRINGE 0 ML IV SCH ×2 (08:44→20:46)
[2022-04-25] MEDS: LANTUS PER UNIT CHARGE SQ SCH ×2 (08:44→20:42)
[2022-04-25] MEDS: ASPIRIN 81 MG CHEW PO SCH (08:45)
[2022-04-25] MEDS: PYRIDOXINE HCL 50 MG TAB PO SCH (08:45)
[2022-04-25] MEDS: ATORVASTATIN 10 MG TAB PO SCH (08:45)
--- NOTE | 2022-04-25 11:23 | Hospitalist Progress Note ---
Date of Service April 25, 2022 Assessment & Plan (1) Sepsis: Plan: -Severe Sepsis secondary to E Coli UTI -On admission, Blood pressures were in the 80's systolic -Blood and urine cultures growing gram E coli -Patient is currently stable after Fluids and antibiotics -ID on consult, advice Cefepime 2G daily. Discontinue daptomycin -My colleague Spoke with transplant team at [facility] [place], adviced to hold Cellcept for now with concern for infection. -Continue to monitor -Repeat blood cultures to document clearance (2) Elevated troponin: Plan: -Likely due to sepsis -Troponini trended down -Initially started on heparin by weight, although no chest pain or EKG changes. This has been discontinued per Cardiology -2 D ECHO showed preserved EF, no evidence og wall motion abnormality -cardiology on consult, appreciate recs (3) MOOKIE (acute kidney injury): Plan: -Likely multifactorial including current UTI/sepsis, dehydration, and hypot ension -Will continue IV fluids on admission, hold Carvedilol for now until hemodynamically stable -Monitor am Renal function -Appreciate nephrology (4) Chronic hepatitis B: Plan: -Stable liver function -Continue entecavir (5) Renal transplant recipient: Plan: -See Sepsis and MOOKIE (6) Diabetes: Plan: -Hold metformin -Normally takes 22 units of glargine HS, will decrease to 15 units HS for now with poor oral intake -Will continue with correction factor of 65 and carb ratio of 22 -DM II diet -Blood glucose under fair control (7) Anemia: Plan: -Stable (8) Hyperlipidemia: Plan: -Continue statin (9) Hypertension: Plan: -Hemodynamically stable on admission -Hold carvedilol for now until he is more stable to avoid hypotension (10) Hyponatremia: Plan: -Serum sodium close to baseline -Is chronically hyponatremic -Monitor sodium levels in the am after adequate hydration (11) Hypomagnesemia: Plan: -Replace Plan continue hospitalization Admission and Anticipated Discharge Date Admission Date: April 23, 2022 Subjective patient seen and examined, lying quietly in bed, feels much better Review of Systems Review of Systems: All systems reviewed are negative, apart from the ones contained in the history. Physical Exam Physical Exam: The patient is awake, alert and oriented 3, well developed and well nourished, normocephalic and atraumatic, lying in bed and in no acute distress. HEENT--PERRL, EOMI, mucous membranes and oropharynx mildly dry Neck--supple. No JVD. No bruits. Thyroid normal, trachea midline, no adenopathy. Heart--normal S1 and S2. No murmurs, rubs or gallops. Lungs--clear bilaterally, no respiratory distress, no accessory muscle use. Abdomen--normal bowel sounds and soft. Mild epigastric and left sided abdominal pain Extremities--no cyanosis or clubbing. No edema. Dermatologic--normal skin turgor, normal color, no abnormal lymph nodes, no rash. Neurologic--cranial nerves II through XII grossly intact. Rheumatologic--normal range of motion. Psychiatric--normal affect. Results & Data Results & Data ([facility]) Vital Signs (Past 12 Hours) Vital Signs Temp Pulse Pulse Resp BP Pulse Ox O2 Del Method 04/25/22 11:16 98.1 F 75 18 153/74 H 98 Room Air 04/25/22 07:31 97.9 F 64 20 163/76 H 94 Room Air 04/25/22 07:20 63 04/25/22 04:08 99.5 F 04/25/22 03:27 100.0 F H 85 16 160/72 H 97 Room Air 04/25/22 01:41 85 04/25/22 00:25 98.1 F PG Care Time/CCT Total # of Minutes Spent Total Time Spent with Patient: Total time spent is greater than 50% in coordination of care (as documented) at patient's floor/unit and/or counseling patient: Coding Level of Care Code 77257 Subseq Hosp Care Lvl 2 Diagnoses Sepsis A41.9 Elevated troponin R77.8 MOOKIE (acute kidney injury) N17.9 Chronic hepatitis B B18.1 Renal transplant recipient Z94.0 Diabetes E11.22; N18.4 Diabetes mellitus type: type 2 Diabetes mellitus correction insulin use: without correction use Diabetes mellitus complication status: with kidney complications Diabetes mellitus complication detail: with chronic kidney disease Chronic kidney disease stage: stage 4 (severe) Anemia D64.9 Anemia type: due to chronic kidney disease Hyperlipidemia E78.5 Hypertension I15.1; N28.89 Hypertension type: secondary to other renal disorders Hyponatremia E87.1 Hypomagnesemia E83.42 Time Spent (min) 35 (1) Diabetes Diabetes mellitus type: type 2 Diabetes mellitus correction insulin use: without intermodal dispatcher use Diabetes mellitus complication status: with kidney complications Diabetes mellitus complication detail: with chronic kidney disease Chronic kidney disease stage: stage 4 (severe) Qualified Code(s): E11.22 - Type 2 diabetes mellitus with diabetic chronic kidney disease; N18.4 - Chronic kidney disease, stage 4 (severe) (2) Anemia Anemia type: due to chronic kidney disease (3) Hypertension Hypertension type: secondary to other renal disorders Qualified Code(s): I15.1 - Hypertension secondary to other renal disorders; N28.89 - Other specified disorders of kidney and ureter
[2022-04-25] MEDS: SODIUM CHLORIDE 0.9% 1000ML 1,000 ML IV SCH (11:29)
--- NOTE | 2022-04-25 12:08 | Nephrology Progress Note ---
Date of Service April 25, 2022 Assessment & Plan (1) Acute UTI (urinary tract infection): (2) MOOKIE (acute kidney injury): (3) Sepsis: (4) Renal transplant recipient: (5) Hyponatremia: (6) Hypomagnesemia: (7) Immunocompromised state: (8) Anemia: (9) Leukocytosis: Plan 67 y o gentlemen with history of renal transplant from living unrelated donor, with excellent allograft function, admitted with sepsis secondary to UTI and bacteremia with Gram-negative cohn a live, currently on empiric antibiotics with cefepime and daptomycin. On admission noted to have MOOKIE, creatinine 1.7 with baseline creatinine 1.1, creatinine 1.6 this morning. Electrolyte acceptable except mild hyponatremia and hypomagnesemia. Overall feeling better. On belatacept infusion monthly and CellCept which has been currently on hold as per recommendation from the transplant team. -- Start on normal saline at 80 mL/hour, a PTH, vitamin-D, PTHrP, SPEP, UPEP considering anemia, hypoalbuminemia and immunosuppressed state. avoid calcium, vitamin-D supplement and thiazide diuretics for now. -- Continue to monitor renal function electrolyte, expect renal function to slowly start to improve. Encouraged to keep well hydrated. -- Continue to hold CellCept as per recommendation from the transplant team Will follow Admission and Anticipated Discharge Date Admission Date: April 23, 2022 Leonardo Bennett was seen and evaluated this morning. Overall he has been feeling well, decent p.o. intake. Renal function slowly improving, creatinine down to 1.5 but calcium again elevated above 11 corrected. Review of Systems Review of Systems: Detailed review of system was otherwise unremarkable. Physical Exam Constitutional: WD/WN, vitals as above no acute distress Eyes: + anicteric sclerae ENMT: Ears: no hearing impairment Neck: normal visual inspection Respiratory: Auscultation: lungs clear to auscultation bilaterally Cardiovascular: RRR, no murmur, no edema Musculoskeletal: Extremities: extremities normal to inspection Neurologic: no focal motor deficits Psychiatric: Orientation: alert and oriented x 3 Affect: euthymic affect Results & Data ([facility]) Vital Signs (Past 12 Hours) Vital Signs Temp Pulse Pulse Resp BP Pulse Ox O2 Del Method 04/25/22 11:16 36.7 C 75 18 153/74 H 98 Room Air 04/25/22 07:31 36.6 C 64 20 163/76 H 94 Room Air 04/25/22 07:20 63 04/25/22 04:08 37.5 C 04/25/22 03:27 37.8 C H 85 16 160/72 H 97 Room Air 04/25/22 01:41 85 04/25/22 00:25 36.7 C PG Care Time/CCT Total # of Minutes Spent Total Time Spent with Patient: Total time spent is greater than 50% in coordination of care (as documented) at patient's floor/unit and/or counseling patient: Coding Level of Care Code 28920 Subseq Hosp Care Lvl 3 Diagnoses Acute UTI (urinary tract infection) N39.0 MOOKIE (acute kidney injury) N17.9 Sepsis A41.9; R65.20 Sepsis acute organ dysfunction status: with acute organ dysfunction Sepsis type: sepsis due to unspecified organism Severe sepsis acute organ dysfunction type: unspecified Severe sepsis shock status: without septic shock Renal transplant recipient Z94.0 Hyponatremia E87.1 Hypomagnesemia E83.42 Immunocompromised state D84.9 Anemia D64.9 Anemia type: due to chronic kidney disease Leukocytosis D72.829 Leukocytosis type: unspecified (1) Sepsis Sepsis acute organ dysfunction status: with acute organ dysfunction Sepsis type: sepsis due to unspecified organism Severe sepsis acute organ dysfunction type: unspecified Severe sepsis shock status: without septic shock Qualified Code(s): A41.9 - Sepsis, unspecified organism; R65.20 - Severe sepsis without septic shock (2) Anemia Anemia type: due to chronic kidney disease (3) Leukocytosis Leukocytosis type: unspecified Qualified Code(s): D72.829 - Elevated white blood cell count, unspecified
[2022-04-25] MEDS: carvediloL 3.125 MG TAB PO SCH (20:46)
[2022-04-26] MEDS: SODIUM CHLORIDE 0.9% 1000ML 1,000 ML IV SCH ×2 (00:23→11:13)
--- NOTE | 2022-04-26 06:38 | Electrocardiogram Report ---
Test Reason : Blood Pressure : / mmHG Vent. Rate : 093 BPM Atrial Rate : 093 BPM P-R Int : 160 ms QRS Dur : 066 ms QT Int : 330 ms P-R-T Axes : 054 014 038 degrees QTc Int : 410 ms Normal sinus rhythm Anteroseptal infarct , age undetermined Possible Old Inferior infarct Abnormal ECG When compared with ECG of 23-APR-2022 09:17, Borderline Criteria for Anteroseptal infarct is now Present Reconfirmed by Nahid Aiken ([id number]) on 04/24/2022 9:08:59 AM Also confirmed by Nahid Aiken ([id number]), editorial assistant ERNESTINE MACE ([id number]) on 04/26/2022 6:38:34 AM Referred By: Josue Razo Confirmed By:Nahid Aiken
[2022-04-26 07:25] LABS: Hematocrit (blood only) 34.4 % (40.1-51.0); Hemoglobin 11.5 g/dl (14.0-18.0); Mean Corpuscular Hemoglobin 30.9 pg (25.0-34.0); Mean Corpuscular Hgb Conc 33.4 g/dL (32.0-36.0); Mean Corpuscular Volume 92.5 fL (80.0-100.0); Platelet Count 154 K/uL (130-400); RDW Coefficient of Variation 12.9 % (11.5-14.5); RDW Standard Deviation 43.9 fL (36.4-46.3); Red Blood Count 3.72 M/uL (4.63-6.08)
[2022-04-26 07:49] LABS: Albumin Globulin Ratio 1.1 (0.9-2); Albumin Level 3.4 gm/dl (3.4-5.0); Bilirubin,Total 0.4 mg/dl (0.2-1.0); Creatinine Clr Calc Pharmacy 50.4 ml/min; Est GFR (African American) 64.4 ml/min; Est GFR (Non-African American) 55.5 ml/min; Potassium 3.8 mmol/L (3.5-5.1); Total Protein 6.4 gm/dl (6.0-8.3)
[2022-04-26] MEDS: LANTUS PER UNIT CHARGE SQ SCH ×2 (09:03→20:34)
[2022-04-26] MEDS: INSULIN ASPART PER UNIT SC SCH ×4 (09:03→20:34)
[2022-04-26] MEDS: carvediloL 3.125 MG TAB PO SCH ×2 (09:03→20:34)
[2022-04-26] MEDS: ASPIRIN 81 MG CHEW PO SCH (09:04)
[2022-04-26] MEDS: PYRIDOXINE HCL 50 MG TAB PO SCH (09:04)
[2022-04-26] MEDS: ATORVASTATIN 10 MG TAB PO SCH (09:04)
[2022-04-26] MEDS: CEFEPIME 2,000 MG in SYRINGE 0 ML IV SCH ×2 (09:08→20:34)
--- NOTE | 2022-04-26 11:33 | Hospitalist Progress Note ---
Date of Service April 26, 2022 Assessment & Plan (1) Sepsis: Plan: -Severe Sepsis secondary to E Coli UTI -On admission, Blood pressures were in the 80's systolic -Blood and urine cultures growing gram E coli -Patient is currently stable after Fluids and antibiotics -ID on consult, advice Cefepime 2G daily. Discontinue daptomycin -My colleague Spoke with transplant team at [facility] [place], adviced to hold Cellcept for now on account of infection. -Repeat blood cultures to document clearance, negative in the last 24 hrs -E Coli is mancera sensitive, will discharge tomorrow on PO antibiotics, preferably for 10 more days (2) Elevated troponin: Plan: -Likely due to sepsis -Troponini trended down -Initially started on heparin by weight, although no chest pain or EKG changes. This has been discontinued per Cardiology -2 D ECHO showed preserved EF, no evidence of wall motion abnormality -cardiology on consult, appreciate recs (3) MOOKIE (acute kidney injury): Plan: -Now resolved -Was Likely multifactorial including current UTI/sepsis, dehydration, and hypotension (4) Chronic hepatitis B: Plan: -Stable liver function -Continue entecavir (5) Renal transplant recipient: Plan: -See Sepsis and MOOKIE -Resume transplant medicine upon discharge (6) Diabetes: Plan: -Hold metformin -Normally takes 22 units of glargine HS, will decrease to 15 units HS for now with poor oral intake -Will continue with correction factor of 65 and carb ratio of 22 -DM II diet -Blood glucose under fair control (7) Anemia: Plan: -Stable (8) Hyperlipidemia: Plan: -Continue statin (9) Hypertension: Plan: -BP under better control -Resume home carvedilol (10) Hyponatremia: Plan: -Serum sodium close to baseline -Is chronically hyponatremic -Monitor sodium levels in the am after adequate hydration (11) Hypomagnesemia: Plan: -Replace Plan d/c in the next 24 hrs Admission and Anticipated Discharge Date Admission Date: April 23, 2022 Subjective patient seen and examined, he feels much better, denies fever or chills Review of Systems Review of Systems: All systems reviewed are negative, apart from the ones contained in the history. Physical Exam Physical Exam: The patient is awake, alert and oriented 3, well developed and well nourished, normocephalic and atraumatic, lying in bed and in no acute distress. HEENT--PERRL, EOMI, mucous membranes and oropharynx mildly dry Neck--supple. No JVD. No bruits. Thyroid normal, trachea midline, no adenopathy. Heart--normal S1 and S2. No murmurs, rubs or gallops. Lungs--clear bilaterally, no respiratory distress, no accessory muscle use. Abdomen--normal bowel sounds and soft. Mild epigastric and left sided abdominal pain Extremities--no cyanosis or clubbing. No edema. Dermatologic--normal skin turgor, normal color, no abnormal lymph nodes, no rash. Neurologic--cranial nerves II through XII grossly intact. Rheumatologic--normal range of motion. Psychiatric--normal affect. Results & Data Results & Data ([facility]) Vital Signs (Past 12 Hours) Vital Signs Temp Pulse Pulse Resp BP Pulse Ox O2 Del Method 04/26/22 07:51 99.0 F 72 18 177/75 H 96 Room Air 04/26/22 07:15 60 04/26/22 03:49 99.3 F 66 16 145/72 H 96 Room Air 04/26/22 00:52 72 04/26/22 00:32 98.4 F PG Care Time/CCT Total # of Minutes Spent Total Time Spent with Patient: Total time spent is greater than 50% in coordination of care (as documented) at patient's floor/unit and/or counseling patient: Coding Level of Care Code 18569 Subseq Hosp Care Lvl 2 Diagnoses Sepsis A41.9 Elevated troponin R77.8 MOOKIE (acute kidney injury) N17.9 Chronic hepatitis B B18.1 Renal transplant recipient Z94.0 Diabetes E11.22; N18.4 Diabetes mellitus type: type 2 Diabetes mellitus petroleum terminal plant operator insulin use: without long-term use Diabetes mellitus complication status: with kidney complications Diabetes mellitus complication detail: with chronic kidney disease Chronic kidney disease stage: stage 4 (severe) Anemia D64.9 Anemia type: due to chronic kidney disease Hyperlipidemia E78.5 Hypertension I15.1; N28.89 Hypertension type: secondary to other renal disorders Hyponatremia E87.1 Hypomagnesemia E83.42 Time Spent (min) 35 (1) Diabetes Diabetes mellitus type: type 2 Diabetes mellitus petroleum terminal plant operator insulin use: with out petroleum terminal plant operator use Diabetes mellitus complication status: with kidney complications Diabetes mellitus complication detail: with chronic kidney disease Chronic kidney disease stage: stage 4 (severe) Qualified Code(s): E11.22 - Type 2 diabetes mellitus with diabetic chronic kidney disease; N18.4 - Chronic kidney disease, stage 4 (severe) (2) Anemia Anemia type: due to chronic kidney disease (3) Hypertension Hypertension type: secondary to other renal disorders Qualified Code(s): I15.1 - Hypertension secondary to other renal disorders; N28.89 - Other specified disorders of kidney and ureter
--- NOTE | 2022-04-26 12:46 | Nephrology Progress Note ---
Date of Service April 26, 2022 Assessment & Plan (1) Acute UTI (urinary tract infection): (2) MOOKIE (acute kidney injury): (3) Sepsis: (4) Renal transplant recipient: (5) Hyponatremia: (6) Hypomagnesemia: (7) Immunocompromised state: (8) Anemia: (9) Leukocytosis: Plan 67 y o gentlemen with history of renal transplant from living unrelated donor, with excellent allograft function, admitted with sepsis secondary to UTI and bacteremia with Gram-negative cohn a live, currently on empiric antibiotics with cefepime and daptomycin. On admission noted to have MOOKIE, creatinine 1.7 with baseline creatinine 1.1, creatinine 1.6 this morning. Electrolyte acceptable except mild hyponatremia and hypomagnesemia. Overall feeling better. On belatacept infusion monthly and CellCept which has been currently on hold as per recommendation from the transplant team. 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 Eventually he will need to be started on Sensipar and possible parathyroidectomy. Since he is eager to get discharged, okay to be discharged this afternoon with close outpatient lab monitoring, Recommend renal function electrolyte done tomorrow and result faxed to Dr. Razo for further recommendation. Advised to keep well hydrated specially considering hypercalcemia, avoid calcium and vitamin-D supplement. Decision regarding restarting on CellCept as per recommendation from the transplant team. Will follow Admission and Anticipated Discharge Date Admission Date: April 23, 2022 Leonardo Bennett was seen and evaluated this morning. Overall he has been feeling well, decent p.o. intake. Renal function slowly improving, creatinine down to 1.3 but calcium again elevated above 11 corrected, however, he feels fine and eager to get discharged. Review of Systems Review of Systems: Detailed review of system was otherwise unremarkable. Physical Exam Constitutional: WD/WN, vitals as above no acute distress Eyes: + anicteric sclerae ENMT: Ears: no hearing impairment Neck: normal visual inspection Respiratory: Auscultation: lungs clear to auscultation bilaterally Cardiovascular: RRR, no murmur, no edema Musculoskeletal: Extremities: extremities normal to inspection Neurologic: no focal motor deficits Psychiatric: Orientation: alert and oriented x 3 Affect: euthymic affect Results & Data ([facility]) Vital Signs (Past 12 Hours) Vital Signs Temp Pulse Pulse Resp BP Pulse Ox O2 Del Method 04/26/22 11:50 37.1 C 78 17 139/67 94 Room Air 04/26/22 07:51 37.2 C 72 18 177/75 H 96 Room Air 04/26/22 07:15 60 04/26/22 03:49 37.4 C 66 16 145/72 H 96 Room Air 04/26/22 00:52 72 PG Care Time/CCT Total # of Minutes Spent Total Time Spent with Patient: Total time spent is greater than 50% in coordination of care (as documented) at patient's floor/unit and/or counseling patient: Coding Level of Care Code 74280 Subseq Hosp Care Lvl 3 Diagnoses Acute UTI (urinary tract infection) N39.0 MOOKIE (acute kidney injury) N17.9 Sepsis A41.9; R65.20 Sepsis acute organ dysfunction status: with acute organ dysfunction Sepsis type: sepsis due to unspecified organism Severe sepsis acute organ dysfunction type: unspecified Severe sepsis shock status: without septic shock Renal transplant recipient Z94.0 Hyponatremia E87.1 Hypomagnesemia E83.42 Immunocompromised state D84.9 Anemia D64.9 Anemia type: due to chronic kidney disease Leukocytosis D72.829 Leukocytosis type: unspecified (1) Sepsis Sepsis acute organ dysfunction status: with acute organ dysfunction Sepsis type: sepsis due to unspecified organism Severe sepsis acute organ dysfunction type: unspecified Severe sepsis shock status: without septic shock Qualified Code(s): A41.9 - Sepsis, unspecified organism; R65.20 - Severe sepsis without septic shock (2) Anemia Anemia type: due to chronic kidney disease (3) Leukocytosis Leukocytosis type: unspecified Qualified Code(s): D72.829 - Elevated white blood cell count, unspecified
[2022-04-26] MEDS ORDERED: ENTECAVIR 0.5 MG EXT SCH (14:45)
[2022-04-26] MEDS: ENTECAVIR 0.5 MG PO SCH (15:09)
[2022-04-27] MEDS: SODIUM CHLORIDE 0.9% 1000ML 1,000 ML IV SCH (00:21)
--- NOTE | 2022-04-27 06:50 | Discharge Summary ---
Discharge Summary Date of Service April 27, 2022 Admission HPI Per Admitting Provider Alexander Whyte) is an 67 year old male with a PMH significant for ESRD S/P living unrelated donor transplant at [facility] on 02/12/21 , DM, HTN, Hyperlipidemia, psoriasis, chronic hepatitis B who presented to the [facility] ED on 04/23/22 with a chief complaint of illness. In the ED the patient was initially found to be afebrile, stable on RA, but hypotensive at 87/56. Labs were remarkable for a leukocytosis of 24 with left shift of 21, stable Hgb at 12.7, Cr. of 1.69 (patient states that baseline is around 1.2), sodium of 131 after correcting for glucose of 216, calcium of 10.7, mag of 1.5, direct bili of 0.3, high sensitivity troponin of 1708, procal of 3.85, and UA concerning for UTI. He was found to have negative screens for Covid, Influenza, and RSV. Chest xray was negative for acute findings. Prior to admission the patient was given 2L NSS and his blood pressure improved to 102/59, cefepime, and daptomycin. At the time of the exam the patient was resting comfortably in bed in no acute distress with his Daughter sitting bedside, history was obtained from both. They state that over the past few days the patient has had progressive fevers (as high as 102 F), chills, weakness, and poor oral intake. The patient had one episode of nausea and vomiting yesterday, he denies blood in his vomit. His daughter states that she gave him tylenol which did help with is fever and chills. They noted that his urine has been more concentrated over this time, he denies dysuria and hematuria. When asked, the patient denies current chest pain, SOB, abdominal pain, nausea, vomiting, diarrhea, melena, and lower extremity swelling. The patient currently gets monthly infusions of belatacept for immunosuppression, his last infusion was last week. He also takes Mycophenolate for his kidney transplant and is on entecavir for his chronic Hepatitis B. When asked, the patient and his daughter confirm that he was still taking his Carvedilol with his poor oral intake. I spoke to them regarding code status, the patient would like to be a Full Code. The patient explained that he has no new/acute abdominal pain. He explains that he does have tenderness at his transplant site with palpation, which has been stable since receiving his transplant. I called and spoke to the [facility] community sports coordinator/nurse to touch base. They recommended holding his Cellcept for now with concerns for sepsis, they are ok with continuing his entecavir for now. Please refer to Dr. Sanderson's attestation for any changes to the treatment plan. Admission Exam Per Admitting Provider Physical Exam: General: In no acute distress, stated age, well-nourished, good hygiene, non- toxic appearing HEENT: Normocephalic, atraumatic, no scleral icterus, pupils around round, symmetrical, and reactive to light, dry mucus membranes, trachea midline, no thyromegaly Chest/Pulm: No respiratory distress, symmetrical chest expansion, clear breath sounds throughout Cardiac: RRR, no murmurs noted Abdomen: Negative for ascites and bruising, patient with scar in the RLQ from previous kidney transplant which appears well-healed, slightly tender to palpation over the transplant site which is the patient's baseline, normoactive bowel sounds, soft, non-tender in all other abdominal causey Musculoskeletal: Symmetrical and without signs of acute trauma, upper and lower extremities with full ROM, no atrophy, spasticity, or flaccidity Extremities: Radial, dorsalis pedis, and posterior tibial pulses are intact and symmetrical, no edema noted in the BL LE's Skin: Warm, dry, no rashes , lesions, or scars noted Neuro: Alert and oriented to person, place, month, year, and president, no focal defects, CN II-XII tested and intact, finger to nose test negative, no tremors noted Psych: No acute distress, calm and cooperative during the exam Principal Dx & Hospital Course #1 = Principal Diagnosis (1) Sepsis: -Severe Sepsis secondary to E Coli UTI on admission. On admission, Blood pressures were in the 80's systolic. -Blood and urine cultures growing E coli sensitive to ciprofloxacin. -ID on consult, advice Cefepime 2G daily -> transitioned to ciprofloxacin 750 mg p.o. twice daily and discharged to complete a total of 14 days of therapy (complete on 05/02). -My colleague spoke with transplant team at [facility], adviced to hold Cellcept for now on account of infection. Attempted to reach out to transplant team today however was unable to get in touch with construction secretary, advised patient to reach out to transplant team and also advised transplant team of impending discharge and need to discuss CellCept. -Repeat blood cultures to document clearance, negative. (2) Elevated troponin: -Likely due to sepsis. -Troponin trended down. -Initially started on heparin by weight, although no chest pain or EKG changes. No suspicion of ACS per cardiology. -2 D ECHO showed preserved EF, no evidence of wall motion abnormality. (3) MOOKIE (acute kidney injury): -Now resolved. -Was Likely multifactorial including current UTI/sepsis, dehydration, and hypotension. (4) Chronic hepatitis B: -Stable liver function . -Continue entecavir . (5) Renal transplant recipient: -See Sepsis and MOOKIE -Resume transplant medicine upon discharge per transplant team, see above. (6) Diabetes: Resume home metformin, glargine 22u HS. (7) Anemia: -Stable (8) Hyperlipidemia: -Continue statin (9) Hypertension: -Continue home carvedilol with PCP follow-up. (10) Hyponatremia: Sodium 134 on 04/26, chronic, no further intervention. (11) Hypomagnesemia: Repleted. Plan Discharged home with follow-ups with nephrology in 1 week for continued monitoring of renal function as well as hypercalcemia (primary/tertiary hyperparathyroidism) Discharge Exam Constitutional WD/WN, vitals as above Respiratory normal respiratory effort, lungs clear to auscultation Cardiovascular RRR, no murmur, no edema Psychiatric A+Ox3, euthymic affect Updated Medication List Medication Instructions Recorded Confirmed Type aspirin 81 mg chewable tablet 1 tab PO DAILY #30 tabs 11/23/18 01/30/22 History blood-glucose meter (TapingoTouch #1 ea 08/13/20 01/30/22 Rx Verio Meter) carvedilol 3.125 mg tablet (Coreg) 3.125 mg PO BID #60 tabs 10/03/20 01/30/22 Rx lancets (OneTouch UltraSoft #200 ea 02/27/21 01/30/22 Rx Lancets) entecavir 0.5 mg tablet (Baraclude) 0.5 mg PO DAILY 03/24/21 01/30/22 History blood sugar diagnostic (TapingoTouch #200 strips 12/31/21 01/30/22 Rx Verio test strips) acetaminophen 500 mg tablet 500 mg PO Q8H PRN 01/30/22 01/30/22 History (Tylenol Extra Strength) belatacept 250 mg intravenous IV 01/30/22 01/30/22 History solution (Nulojix) betamethasone dipropionate 0.05 % 1 applic topical DAILY PRN 01/30/22 01/30/22 History topical cream blood-glucose meter,continuous 01/30/22 01/30/22 History (Dexcom G6 Lumber Racker misc) blood-glucose sensor (Dexcom G6 01/30/22 01/30/22 History Sensor device) blood-glucose transmitter (Dexcom 01/30/22 01/30/22 History G6 Transmitter device) docusate sodium 100 mg capsule 100 mg PO BID 01/30/22 01/30/22 History insulin aspart U-100 100 unit/mL 12 unit subcut TID 01/30/22 01/30/22 History subcutaneous cartridge (Novolog PenFill U-100 Insulin aspart) insulin glargine 100 unit/mL (3 24 unit subcut QPM 01/30/22 01/30/22 History mL) subcutaneous pen (Basaglar KwikPen U-100 Insulin) isoniazid 300 mg tablet 300 mg PO DAILY 01/30/22 01/30/22 History metformin 500 mg tablet 500 mg PO BID 01/30/22 01/30/22 History pen needle, diabetic 32 gauge x 01/30/22 01/30/22 History 5/32" (BD Jackie 2nd Gen Pen Needle) pyridoxine (vitamin B6) 50 mg 50 mg PO DAILY 01/30/22 01/30/22 History tablet sitagliptin phosphate 100 mg 100 mg PO DAILY 01/30/22 01/30/22 History tablet (Januvia) atorvastatin 10 mg tablet 10 mg PO DAILY #90 tabs 03/25/22 Rx ciprofloxacin HCl 750 mg tablet 750 mg PO BID 6 days #12 tabs 04/27/22 Rx Hospital Stay Data Consultations 04/24/22 00:30 Consult Cardiology Routine 04/24/22 08:16 Consult Infectious Diseases Routine Diagnostic Imagining Performed 04/23/22 11:25 US renal transplant w dop Urgent Discharge Instructions Given to Patient (Per Discharging Provider) You were admitted to the hospital for sepsis due to a urinary tract infection. You were started on broad spectrum antibiotics, which were continued through your discharge. You were transitioned to an antibiotic called ciprofloxacin for discharge. Please see dosing and duration below. 1) You should CONTINUE ciprofloxacin, one 750 milligram tablet every 12 hours until the evening of 05/02/2022. 2) You should have follow up with Nephrology, the kidney doctors, regarding your high calcium and your kidney injury that occurred while you were here. If you do not hear from Dr. Razo's office by Wednesday, please call [phone] for an appointment in the near future. They will follow up on your kidney labs. 3) You should have follow up with your primary care office within 10 days of discharge. I have attached both Dr. Cummings and Dr. Daily's contact information to this paperwork. 4) You should make sure you hydrate well at home with water, and avoid calcium supplements. 5) Please call your doctor's office for your kidney transplant tomorrow to see when you should resume your Cellcept medication. This was held due to your active infection. If you have any shortness of breath, chest pain, or other urgent medical concerns, please seek urgent medical attention. Total Time Total Time Spent Total Time Spent (In Minutes): 40 min Coding Level of Care Code D/C DAY MANAGEMENT >30 MINS Diagnoses Sepsis A41.9 Elevated troponin R77.8 MOOKIE (acute kidney injury) N17.9 Chronic hepatitis B B18.1 Renal transplant recipient Z94.0 Diabetes E11.22; N18.4 Chronic kidney disease stage: stage 4 (severe) Diabetes mellitus complication detail: with chronic kidney disease Diabetes mellitus complication status: with kidney complications Diabetes mellitus local company intermodal truck driver insulin use: without alf use Diabetes mellitus type: type 2 Anemia D64.9 Anemia type: due to chronic kidney disease Hyperlipidemia E78.5 Hypertension I15.1; N28.89 Hypertension type: secondary to other renal disorders Hyponatremia E87.1 Hypomagnesemia E83.42
--- NOTE | 2022-04-27 07:20 | Infectious Disease Progress Nt ---
Date of Service April 27, 2022 Assessment & Plan (1) Sepsis: (2) Acute UTI (urinary tract infection): (3) Leukocytosis: (4) Renal transplant recipient: (5) Chronic hepatitis B: Plan 67 year old male with a PMH significant for ESRD S/P living unrelated donor transplant on 02/12/21 on MMF and belatacept , DM, HTN, Hyperlipidemia, psoriasis, chronic hepatitis B on entecavir, who was admitted to [facility] ED on 04/23/22 fatigue, fever. ID consulted for Ecoli sepsis secondary to UTI in renal transplant. See HPI, Patient initially hypotensive improved with fluids. leukocytosis 24 with left shift of 21, stable Hgb at 12.7, Cr. of 1.69 (baseline 1.2) troponin elevation, PCT 3.85, UA showed 2+ protein, 3+ blood, negative Nitrites, 3+ LE, >30 Wbcs. 04/23 Blood cultures positive for GN bacilli 2/2, BCID showed positive Ecoli, Ucx > 100k GNR Sensi P, Both confirmed to be Ecoli I to Unasyn and R to bactrim. Blood cultures clear from 04/24. Renal U/S Normal sonographic examination of the right pelvic renal transplant. Patient started on Cefepime and Daptomycin. MMF held. On consult, Wbc improved to 16, AST inc slightly to 41, Troponin trending down 5k ? 3969, Now WBC has normalized. Cr 1.3 (near baseline) ECG Shows QTc: 410. Discussion: patient with Ecoli UTI induced sepsis. He was treated with Cefepime. Cellcept has been held. U/S shows no renal caliculi. Bcx cleared 04/24. Recommend 14 day course from onset of appropriate treatment given this is a complicated UTI. GFR is ~50-55. Therefore would complete therapy with Ciprofloxacin 750mg po BID through 05/02. Recommend Repeat cx are negative, PCN allergy--> Change to Ciprofloxacin 750mg po BID through 05/02 Follow up with labs this week: CBC with differential, CMP If GFR <50 would decrease Cipro to 500mg po BID Thank you for allowing me to participate in the care of your patient. I will discuss recommendations with Primary team. Francine Felix MD [facility], ID Connect Admission and Anticipated Discharge Date Admission Date: April 23, 2022 Subjective This patient recommendation is based on a telemedicine consult request which was completed asynchronously through chart review and information provided by the primary physician. The patient was not seen or examined today. The evaluation is consultative in nature and all patient care and treatment decisions can either be accepted or rejected by the patient's primary hospital-based treating physician using their own independent medical judgment for their patient. 24 hours/Over the weekend: VSS WBC 5 04/24 Blood cultures are No Growth Results & Data ([facility]) Vital Signs (Past 12 Hours) Vital Signs Temp Pulse Pulse Resp BP Pulse Ox O2 Del Method 04/27/22 07:09 78 04/27/22 06:37 37 C 74 16 170/77 H 97 Room Air 04/27/22 03:38 36.9 C 69 18 147/62 H 94 Room Air 04/27/22 00:32 74 04/26/22 23:24 37.3 C 74 16 154/76 H 96 Room Air 04/26/22 19:49 37.2 C 72 16 158/74 H 95 Room Air Laboratory Results Laboratory Results - last 48 hr 04/25/22 04/25/22 04/25/22 07:57 11:30 11:30 WBC RBC Hgb Hct MCV MCH MCHC RDW Std Deviation RDW Coeff of Yves Plt Count MPV Sodium Potassium Chloride Carbon Dioxide Anion Gap BUN Creatinine Est Cr Clr Drug Dosing Est GFR ( Amer) Est GFR (Non-Af Amer) BUN/Creatinine Ratio Glucose POC Glucose 93 Calcium Total Bilirubin AST ALT Alkaline Phosphatase Total Protein Albumin Globulin Albumin/Globulin Ratio 25-OH Vitamin D Total 21.5 L PTH Intact 237.2 H 04/25/22 04/25/22 04/25/22 11:57 16:42 20:14 WBC RBC Hgb Hct MCV MCH MCHC RDW Std Deviation RDW Coeff of Yves Plt Count MPV Sodium Potassium Chloride Carbon Dioxide Anion Gap BUN Creatinine Est Cr Clr Drug Dosing Est GFR ( Amer) Est GFR (Non-Af Amer) BUN/Creatinine Ratio Glucose POC Glucose 87 163 H 88 Calcium Total Bilirubin AST ALT Alkaline Phosphatase Total Protein Albumin Globulin Albumin/Globulin Ratio 25-OH Vitamin D Total PTH Intact 04/26/22 04/26/22 04/26/22 07:00 07:00 07:35 WBC 5.50 RBC 3.72 L Hgb 11.5 L Hct 34.4 L MCV 92.5 MCH 30.9 MCHC 33.4 RDW Std Deviation 43.9 RDW Coeff of Yves 12.9 Plt Count 154 MPV 10.0 Sodium 134 L Potassium 3.8 Chloride 104 Carbon Dioxide 25 Anion Gap 5 BUN 17 Creatinine 1.31 Est Cr Clr Drug Dosing 50.4 Est GFR ( Amer) 64.4 Est GFR (Non-Af Amer) 55.5 BUN/Creatinine Ratio 13.0 Glucose 81 POC Glucose 83 Calcium 11.0 H Total Bilirubin 0.4 AST 39 ALT 25 Alkaline Phosphatase 66 Total Protein 6.4 Albumin 3.4 Globulin 3.0 Albumin/Globulin Ratio 1.1 25-OH Vitamin D Total PTH Intact 04/26/22 04/26/22 04/26/22 11:34 16:17 20:18 WBC RBC Hgb Hct MCV MCH MCHC RDW Std Deviation RDW Coeff of Yves Plt Count MPV Sodium Potassium Chloride Carbon Dioxide Anion Gap BUN Creatinine Est Cr Clr Drug Dosing Est GFR ( Amer) Est GFR (Non-Af Amer) BUN/Creatinine Ratio Glucose POC Glucose 164 H 128 H 141 H Calcium Total Bilirubin AST ALT Alkaline Phosphatase Total Protein Albumin Globulin Albumin/Globulin Ratio 25-OH Vitamin D Total PTH Intact Microbiology 04/24/22 18:20 Blood Aerobic Blood Culture - Preliminary No growth in Aerobic bottle after 48 hours. 04/24/22 18:20 Blood Anaerobic Blood Culture - Preliminary No growth in Anaerobic bottle after 48 hours. 04/24/22 18:37 Blood Aerobic Blood Culture - Preliminary No growth in Aerobic bottle after 48 hours. 04/24/22 18:37 Blood Anaerobic Blood Culture - Preliminary No growth in Anaerobic bottle after 48 hours. 04/23/22 09:42 Blood Aerobic Blood Culture - Preliminary No growth in Aerobic bottle after 48 hours. 04/23/22 09:42 Blood Anaerobic Blood Culture - Preliminary Escherichia coli 04/23/22 09:26 Urine,Clean Catch Urine Culture - Final Escherichia coli 04/23/22 09:20 Blood Aerobic Blood Culture - Final Escherichia coli 04/23/22 09:20 Blood Anaerobic Blood Culture - Final Escherichia coli Blood Culture Aerobic Final 04/25/22-0808 Organism 1 Escherichia coli Sens Sensitivities to Follow Blood Culture PCR Panel If viewing in EMR, results available under LAB Serology tab. E coli RX M.I.C. --- --------- Amox/Clav S <=8/4 Ampicillin R >16 Amp/Sul I 16/8 Cefazolin S <=2 Cefepime S <=2 Ceftriaxone S <=1 Ciprofloxacin S <=0.25 Ertapenem S <=0.5 Gentamicin S <=4 Levofloxacin S <=0.5 Meropenem S <=1 Tobramycin S <=4 Trimeth/Sulfa R >2/38 Pip/Tazo S <=16 Urine Culture Final 04/25/22-0958 Organism 1 Escherichia coli [place] Count >100,000 CFU/ml Sens Sensitivities to Follow E coli RX M.I.C. --- --------- Amox/Clav S <=8/4 Ampicillin R >16 Amp/Sul I 16/8 Cefazolin S <=2 Cefepime S <=2 Ceftriaxone S <=1 Ciprofloxacin S <=0.25 Ertapenem S <=0.5 Gentamicin S <=4 Levofloxacin S <=0.5 Meropenem S <=1 Nitrofurantoin S <=32 Tobramycin S <=4 Trimeth/Sulfa R >38 Pip/Tazo S <=1 (1) Leukocytosis Leukocytosis type: unspecified Qualified Code(s): D72.829 - Elevated white blood cell count, unspecified
[2022-04-27] MEDS: carvediloL 3.125 MG TAB PO SCH (07:49)
[2022-04-27] MEDS: PYRIDOXINE HCL 50 MG TAB PO SCH (07:49)
[2022-04-27] MEDS: ATORVASTATIN 10 MG TAB PO SCH (07:49)
[2022-04-27] MEDS: ASPIRIN 81 MG CHEW PO SCH (07:49)
[2022-04-27] MEDS: ENTECAVIR 0.5 MG PO SCH (07:50)
[2022-04-27] MEDS: CEFEPIME 2,000 MG in SYRINGE 0 ML IV SCH (07:54)
[2022-04-27] MEDS: LANTUS PER UNIT CHARGE SQ SCH (08:03)
[2022-04-27] MEDS: INSULIN ASPART PER UNIT SC SCH (08:03)
--- NOTE | 2022-04-27 10:56 | Nephrology Progress Note ---
Date of Service April 27, 2022 Assessment & Plan (1) MOOKIE (acute kidney injury): Plan: Volume status acceptable. Kidney function improving. Declined labs today given anticipated discharge. Close outpatient follow up will be necessary. Remains on IVF at this time. Volume status acceptable. Discontinue gtt. May restart metformin and sitagliptin on discharge. Follow up with me in the nephrology clinic within 1 week of discharge. (2) Sepsis: Plan: E coli. Antibiotic therapy per primary team. (3) Acute UTI (urinary tract infection): Plan: E coli. Remains on cefepime. Clinically improving. (4) Renal transplant recipient: Plan: May restart MMF at discharge. (5) Hyponatremia: Plan: Improved. Volume status acceptable. (6) Hypercalcemia: Plan: Consistent with primary or tertiary hyperparathyroidism. Will start Sensipar as outpatient pending evaluation for possible parathyroidectomy. Encourage PO fluids. Check repeat metabolic profile within 1 week of discharge. Admission and Anticipated Discharge Date Admission Date: April 23, 2022 Subjective No acute events overnight. Alexander was resting comfortably in bed this AM. Reports anticipated discharge. N/V resolved. Review of Systems Review of Systems: All systems reviewed & are unremarkable except as noted in HPI & below Physical Exam Constitutional: well developed and + thin; no acute distress and not frail appearing Eyes: no scleral abnormality and no corneal abnormality ENMT: Mouth: no oral mucosal abnormality and oral mucous membranes not dry Neck: normal visual inspection and trachea midline Respiratory: normal respiratory effort Auscultation: lungs clear to auscultation bilaterally Cardiovascular: Rate/Rhythm: regular rate Heart Sounds: normal S1 and normal S2 Extremities: no edema Musculoskeletal: Extremities: no cyanosis and no clubbing Skin: normal turgor; no lesions Neurologic: Motor/Sensory: no tremor and no asterixis Psychiatric: Orientation: alert and oriented x 3 Results & Data ([facility]) Vital Signs (Past 12 Hours) Vital Signs Temp Pulse Pulse Resp BP Pulse Ox O2 Del Method 04/27/22 07:25 Room Air 04/27/22 07:09 78 04/27/22 06:37 37 C 74 16 170/77 H 97 Room Air 04/27/22 03:38 36.9 C 69 18 147/62 H 94 Room Air 04/27/22 00:32 74 04/26/22 23:24 37.3 C 74 16 154/76 H 96 Room Air Laboratory Results Laboratory Results - last 24 hr 04/26/22 04/26/22 04/26/22 11:34 16:17 20:18 POC Glucose 164 H 128 H 141 H 04/27/22 07:44 POC Glucose 92 PG Care Time/CCT Total # of Minutes Spent Total Time Spent with Patient: Total time spent is greater than 50% in coordination of care (as documented) at patient's floor/unit and/or counseling patient: Coding Level of Care Code 34960 Subseq Hosp Care Lvl 3 Diagnoses MOOKIE (acute kidney injury) N17.9 Sepsis A41.9; R65.20 Sepsis acute organ dysfunction status: with acute organ dysfunction Sepsis type: sepsis due to unspecified organism Severe sepsis acute organ dysfunction type: unspecified Severe sepsis shock status: without septic shock Acute UTI (urinary tract infection) N39.0 Renal transplant recipient Z94.0 Hyponatremia E87.1 Hypercalcemia E83.52 (1) Sepsis Sepsis acute organ dysfunction status: with acute organ dysfunction Sepsis type: sepsis due to unspecified organism Severe sepsis acute organ dysfunction type: unspecified Severe sepsis shock status: without septic shock Qualified Code(s): A41.9 - Sepsis, unspecified organism; R65.20 - Severe sepsis without septic shock
[2022-04-27] MEDS ORDERED: ENTECAVIR 0.5 MG EXT SCH (14:45)
--- NOTE | 2022-04-28 08:29 | Electrocardiogram Report ---
Test Reason : Blood Pressure : / mmHG Vent. Rate : 095 BPM Atrial Rate : 095 BPM P-R Int : 148 ms QRS Dur : 080 ms QT Int : 346 ms P-R-T Axes : 040 002 039 degrees QTc Int : 434 ms Normal sinus rhythm Possible Old Inferior infarct Abnormal ECG When compared with ECG of 23-APR-2022 18:26, Criteria for Anteroseptal infarct are no longer Present Confirmed by Nahid Aiken ([id number]) on 04/24/2022 9:10:41 AM Also confirmed by Nahid Aiken ([id number]), editorial manager Mao Rome ([id number]) on 04/28/2022 8:29:03 AM Referred By: Josue Razo Confirmed By:Nahid Aiken
[2022-04-28 13:52] LABS: Albumin 2.8 g/dL (3.8-4.8); Alpha 1 Globulin 0.5 g/dL (0.2-0.3); Alpha 2 Globulin 1.1 g/dL (0.5-0.9); Beta-1-Globulin 0.2 g/dL (0.4-0.6); Beta-2-Globulin 0.3 g/dL (0.2-0.5); Gamma Globulin 0.7 g/dL (0.8-1.7); Monoclonal Protein Band 1 0.5 g/dL (NONE DETECTED); Monoclonal Protein Band 2 DNR g/dL (NONE DETECTED); Monoclonal Protein Band 3 DNR g/dL (NONE DETECTED); Total Protein 5.6 g/dL (6.1-8.1)
[2022-04-29 05:17] LABS: Creatinine Ur 51 mg/dL (20-320); Protein, Urine Random 99 mg/dL (5-25); Ur Protein/Creat Ratio mg/g 1941 mg/g creat (25-148); Urine Abnormal Protein Band 1 2 mg/dL (NONE DETECTED); Urine Abnormal Protein Band 2 DNR mg/dL (NONE DETECTED); Urine Abnormal Protein Band 3 DNR mg/dL (NONE DETECTED); Urine Protein/Creatinine Ratio 1.941 (0.025-0.148)
== END 2022-04-27 12:45 | disposition home or self-care (01) | DRG 872 ==
LOC: ED 09:03 → 2N 11:12 → SUATTDRO 11:12 → 2N 13:16

== ENCOUNTER 2022-07-13 10:49 | Inpatient (IN) ==
[2022-07-13] MEDS ORDERED: SODIUM CHLORIDE 0.9% 1000ML 1,000 ML IV STA (11:11)
--- NOTE | 2022-07-13 11:17 | Emergency Department Note ---
Impression & Plan Acute pyelonephritis, Renal transplant recipient, Hypercalcemia, Vomiting, Weakness, MOOKIE (acute kidney injury) ED Provider Note NAME: KINJAL SHI AGE: 67 SEX: M : 1955 ARRIVES VIA: Walk-In INFORMANT: Patient, the patient's family member ED PROVIDER(S): Gaurav Fernando DO CHIEF COMPLAINT: Vomiting HPI: The patient is a 67-year-old male who presented to the emergency department for an evaluation of generalized weakness nausea and vomiting as well as decreased p.o. intake. The patient has a history of a renal transplant over 1 year ago. Has been doing very well with this. Recently he was told that his calcium level has been going up. He was awaiting medications to be sent so he could take them to lower his calcium but they have not come through the pharmacy yet. He has continued to have weakness and vomiting. He denies having any abdominal pain. He denies have any leg swelling. He was in our facility last March with sepsis. He has had no fever. He has had a dry cough. The patient's not been seen by his family doctor today but his specialist in [place] told him to go directly to the emergency department for further evaluation as well as possible IV fluids. ROS: See above HPI for pertinent positives & negatives. A total of 10 systems reviewed and were otherwise negative. PAST MEDICAL HISTORY: See Below PAST SURGICAL HISTORY: See Below FAMILY HISTORY: See Below SOCIAL HISTORY: See Below HOME MEDICATIONS: See Below ALLERGIES: See Below VITALS: See Below PHYSICAL EXAMINATION: GENERAL: The patient is awake but somewhat listless appearing. He does respond to questions appropriately. EYES: The conjunctivae are clear. The pupils are round and reactive. EARS, NOSE, MOUTH AND THROAT: The nose is without any evidence of any deformity. Mucous membranes are dry. NECK: The neck is nontender and supple. RESPIRATORY: Normal respiratory effort is noted there is no evidence of wheezing rhonchi or rales CARDIOVASCULAR: Regular rate and rhythm noted there no murmurs rubs or gallops normal S1 normal S2. GASTROINTESTINAL: The abdomen was mildly distended. There is no specific tenderness guarding rigidity appreciated. MUSCULOSKELETAL/EXTREMITIES: There is no evidence of gross deformity full range of motion is noted in the hips and shoulders. SKIN: There is no obvious evidence of any rash. There are no petechiae, pallor or cyanosis noted. NEUROLOGIC: Patient is awake alert and oriented x 3. MEDICAL DECISION MAKING: The patient is a 67-year-old male who has a history of renal transplant who presented to the emergency department for an evaluation of generalized weakness. The patient had laboratory studies done by his outpatient transplant doctor. He was told that his calcium was very high. The patient's history and physical exam do appear to be consistent with hypercalcemia but he was also found to have signs of urinary tract infection on urinalysis. On physical exam the patient did not have an acute surgical abdomen but he did have a history of renal transplant. For this reason CT was obtained which does appear to be consistent with a higher level infection such as pyelonephritis. The patient was treated with IV fluids as well as IV antibiotics. He was reevaluated multiple times. I discussed the patient's laboratory and radiographic studies with him and his family member. Given his findings I do feel the patient would be a better candidate for inpatient management. For this reason I discussed his case [facility] Triage Nursing notes reviewed. Prior medical records reviewed Vital Signs: reviewed and remarkable for no significant abnormalities Differential diagnosis: Infection, dehydration, metabolic abnormality, hypo/hyperglycemia, electrolyte disturbance, anemia, hypoxia, cardiac sources, intracerebral event, toxicologic, neurologic, as well as other pathologies. ER treatment provided: See below Diagnostics interpreted by me: ECG: EKG was obtained in the emergency department. My interpretation is normal sinus rhythm at 69 bpm. There was no ectopy. There is no acute ST segment abnormalities noted. This was compared to a tracing from April 24, 2022. No changes were noted. Cardiac Monitoring: An order was placed for continuous cardiac monitoring. The monitor shows a rate of 72 bpm with sinus rhythm. Laboratory studies: As stated above and show below. Imaging studies: See below. Radiographic imaging was reviewed by myself Consultation(s): I discussed this case with Dr. Hernandez who is [facility]. He will evaluate the patient in the emergency department. ED COURSE: Procedures: none Critical Care: I have personally spent greater than 55 minutes of critical care time in the direct management of this patient. This includes bedside care, interpretation of diagnostic studies, and testing, discussion with consultants, patient, and family members, and other required patient management activities. This 55 minutes is in excess of all separately billable procedures. Past Med/Surg History Medical History Chronic hepatitis B Demand ischemia Diabetes mellitus, type 2 History of kidney stones Hypercalcemia Hyperlipidemia Hypertension Positive PPD Psoriasis Psoriatic arthritis Tubulovillous adenoma Surgical History A-V fistula LEFT History of colonoscopy 12/2020 repeat 3 yrs History of esophagogastroduodenoscopy (EGD) History of lithotripsy Renal transplant recipient Family History Father Myocardial infarction Family history of diabetes mellitus Other No family history of adverse response to anesthesia Denies family history of Ovarian cancer Prostate cancer Breast cancer Colorectal cancer Lung disease Social History Smoking Status: Former smoker Tobacco Type: Cigarettes Second Hand Exposure: No; Hx Alcohol Use: No Hx Substance Use: No Preferred Language: Canadian Communication Ability: Effective Visual Impairment: Limited Hearing Ability: Normal Plate Filler Required: No Beliefs That Will Affect Care: None marital status: Current Living Situation: Spouse Current Living Situation Comment: AND SON current occupational status: employed current occupation: SELF EMPLOYED How many Children do You have: 2 Feels Safe at Home: Yes Childhood Exposure to Second-Hand Smoke: No caffeine: Yes Dental Care, Regularly: Yes Physical Activity Frequency: 1-2 Times per Week Seatbelt Use: always Sunscreen Use: Yes Assistive Devices: None Allergies Allergies Allergy/AdvReac Type Severity Reaction Status Date / Time Penicillins Allergy Mild Rash Verified 07/03/22 10:10 Home Meds Home Medications Medication Instructions Recorded Confirmed aspirin 81 mg chewable tablet 1 tab PO DAILY #30 tabs 11/23/18 07/03/22 acetaminophen 500 mg tablet 500 mg PO Q8H PRN 01/30/22 07/03/22 (Tylenol Extra Strength) belatacept 250 mg intravenous IV 01/30/22 07/03/22 solution (Nulojix) insulin aspart U-100 100 unit/mL 12 unit subcut TID 01/30/22 07/03/22 subcutaneous cartridge (Novolog PenFill U-100 Insulin aspart) insulin glargine 100 unit/mL (3 24 unit subcut QPM 01/30/22 07/03/22 mL) subcutaneous pen (Basaglar KwikPen U-100 Insulin) metformin 500 mg tablet 500 mg PO BID 01/30/22 07/03/22 entecavir 0.5 mg tablet 0.5 mg PO DAILY 05/01/22 07/03/22 mycophenolate mofetil 250 mg 1,000 mg PO BID 05/01/22 07/03/22 capsule Previous Rx's Medication Instructions Recorded blood-glucose meter (OneTouch #1 ea 08/13/20 Verio Meter) carvedilol 3.125 mg tablet (Coreg) 3.125 mg PO BID #60 tabs 10/03/20 lancets (Senior Wellness SolutionsTouch UltraSoft #200 ea 02/27/21 Lancets) blood sugar diagnostic (Senior Wellness SolutionsTouch #200 strips 12/31/21 Verio test strips) atorvastatin 10 mg tablet 10 mg PO DAILY #90 tabs 03/25/22 pantoprazole 40 mg tablet,delayed 40 mg PO DAILY #90 tabs 07/07/22 release pen needle, diabetic 32 gauge x #100 ea 07/07/22 5/32" (BD Jackie 2nd Gen Pen Needle) Results & Data (ED) Vital Signs Vital Signs - 24 hr 07/13/22 11:00 07/13/22 12:14 Temperature 36.8 C Temperature Source Temporal Artery Scan Pulse Rate 74 72 Respiratory Rate 18 16 Blood Pressure 105/67 124/61 Blood Pressure Mean 79 82 Pulse Oximetry 99 98 Oxygen Delivery Method Room Air Sepsis Recent Fever Within 48 Hours No Sepsis New/Unexplained Change in Mental Status No Sepsis Action Taken by Nursing No Action Required Home Medications Current Medication List: was personally reviewed by me Laboratory Data Attestation: I reviewed the patient's lab results. 07/13/22 11:11 07/13/22 11:11 Lab Results 07/13/22 07/13/22 07/13/22 Range/Units 11:11 11:11 11:11 WBC 15.22 H (4.8-10.8) K/ul RBC 3.90 L (4.70-6.10) M/uL Hgb 11.6 L (14.0-18.0) g/dl Hct 34.7 L (42.0-52.0) % MCV 89.0 (80.0-100.0) fL MCH 29.7 (25.0-34.0) pg MCHC 33.4 (32.0-36.0) g/dL RDW Std Deviation 44.4 (36.4-46.3) fL RDW Coeff of Yves 13.6 (11.5-14.5) % Plt Count 314 (130-400) K/uL MPV 10.0 (9.4-12.4) fL Immature Gran % (Auto) 0.5 % Neut % (Auto) 83.7 % Lymph % (Auto) 5.1 % [place] % (Auto) 10.4 % Eos % (Auto) 0.0 % Baso % (Auto) 0.3 % Neut # (Auto) 12.75 H (1.40-6.50) K/uL Lymph # (Auto) 0.78 L (1.2-3.4) K/uL [place] # (Auto) 1.58 H (0.11-0.59) K/uL Eos # (Auto) 0.00 (0-0.50) K/uL Baso # (Auto) 0.04 (0-0.2) K/uL Immature Gran # (Auto) 0.07 (0.01-0.20) K/uL ESR (0-20) mm/hr PT 11.8 (9.0-12.0) Seconds INR 1.1 (0.9-1.1) APTT (21.0-31.0) Seconds PTT Ratio Sodium 126 L (136-145) mmol/L Potassium 4.4 (3.5-5.1) mmol/L Chloride 91 L (98-107) mmol/L Carbon Dioxide 25 (21-32) mmol/L Anion Gap 10 (3-11) BUN 29 H (6-23) mg/dl Creatinine 2.18 H (0.6-1.4) mg/dl Est Cr Clr Drug Dosing 26.9 ml/min Est GFR ( Amer) 34.8 ml/min Est GFR (Non-Af Amer) 30.0 ml/min BUN/Creatinine Ratio 13.3 (10-20) Glucose 190 H (70-99(Fasting)) mg/dl Calcium 12.9 H* (8.5-10.1) mg/dl Magnesium 2.1 (1.7-2.4) mg/dl Total Bilirubin 0.6 (0.2-1.0) mg/dl AST 13 (13-39) U/L ALT 10 (7-52) U/L Alkaline Phosphatase 138 H (34-104) U/L Troponin I High Sens 24.0 H (0-20) pg/ml C-Reactive Protein 25.44 H (0-0.5) mg/dl Total Protein 8.7 H (6.0-8.3) gm/dl Albumin 3.9 (3.4-5.0) gm/dl Globulin 4.8 H (2.5-4.0) gm/dl Albumin/Globulin Ratio 0.8 L (0.9-2) Lipase 32 (11-82) U/L TSH (0.300-4.500) uIu/ml Urine Color Urine Appearance (Clear) Urine pH (4.5-7.5) Ur Specific [place] (1.000-1.030) Urine Protein (Negative) Urine Glucose (UA) (Negative) Urine Ketones (Negative) Urine Blood (Negative) Urine Nitrite (Negative) Urine Bilirubin (Negative) Urine Urobilinogen (Negative) Ur Leukocyte Esterase (Negative) Urine WBC (Auto) (0-5) /hpf Urine RBC (Auto) (0-4) /hpf U Hyaline Cast (Auto) (0-5) /lpf U Epithel Cells (Auto) (0-5) /lpf Urine Bacteria (Auto) (Negative) Urine Yeast SARS-CoV-2, RNA, NAAT (NEGATIVE) 07/13/22 07/13/22 07/13/22 Range/Units 11:11 11:11 11:11 WBC (4.8-10.8) K/ul RBC (4.70-6.10) M/uL Hgb (14.0-18.0) g/dl Hct (42.0-52.0) % MCV (80.0-100.0) fL MCH (25.0-34.0) pg MCHC (32.0-36.0) g/dL RDW Std Deviation (36.4-46.3) fL RDW Coeff of Yves (11.5-14.5) % Plt Count (130-400) K/uL MPV (9.4-12.4) fL Immature Gran % (Auto) % Neut % (Auto) % Lymph % (Auto) % [place] % (Auto) % Eos % (Auto) % Baso % (Auto) % Neut # (Auto) (1.40-6.50) K/uL Lymph # (Auto) (1.2-3.4) K/uL [place] # (Auto) (0.11-0.59) K/uL Eos # (Auto) (0-0.50) K/uL Baso # (Auto) (0-0.2) K/uL Immature Gran # (Auto) (0.01-0.20) K/uL ESR 116 H (0-20) mm/hr PT (9.0-12.0) Seconds INR (0.9-1.1) APTT 25.4 (21.0-31.0) Seconds PTT Ratio 0.9 Sodium (136-145) mmol/L Potassium (3.5-5.1) mmol/L Chloride (98-107) mmol/L Carbon Dioxide (21-32) mmol/L Anion Gap (3-11) BUN (6-23) mg/dl Creatinine (0.6-1.4) mg/dl Est Cr Clr Drug Dosing ml/min Est GFR ( Amer) ml/min Est GFR (Non-Af Amer) ml/min BUN/Creatinine Ratio (10-20) Glucose (70-99(Fasting)) mg/dl Calcium (8.5-10.1) mg/dl Magnesium (1.7-2.4) mg/dl Total Bilirubin (0.2-1.0) mg/dl AST (13-39) U/L ALT (7-52) U/L Alkaline Phosphatase (34-104) U/L Troponin I High Sens (0-20) pg/ml C-Reactive Protein (0-0.5) mg/dl Total Protein (6.0-8.3) gm/dl Albumin (3.4-5.0) gm/dl Globulin (2.5-4.0) gm/dl Albumin/Globulin Ratio (0.9-2) Lipase (11-82) U/L TSH 1.466 (0.300-4.500) uIu/ml Urine Color Urine Appearance (Clear) Urine pH (4.5-7.5) Ur Specific [place] (1.000-1.030) Urine Protein (Negative) Urine Glucose (UA) (Negative) Urine Ketones (Negative) Urine Blood (Negative) Urine Nitrite (Negative) Urine Bilirubin (Negative) Urine Urobilinogen (Negative) Ur Leukocyte Esterase (Negative) Urine WBC (Auto) (0-5) /hpf Urine RBC (Auto) (0-4) /hpf U Hyaline Cast (Auto) (0-5) /lpf U Epithel Cells (Auto) (0-5) /lpf Urine Bacteria (Auto) (Negative) Urine Yeast SARS-CoV-2, RNA, NAAT (NEGATIVE) 07/13/22 07/13/22 07/13/22 Range/Units 11:11 11:15 11:30 WBC (4.8-10.8) K/ul RBC (4.70-6.10) M/uL Hgb (14.0-18.0) g/dl Hct (42.0-52.0) % MCV (80.0-100.0) fL MCH (25.0-34.0) pg MCHC (32.0-36.0) g/dL RDW Std Deviation (36.4-46.3) fL RDW Coeff of Yves (11.5-14.5) % Plt Count (130-400) K/uL MPV (9.4-12.4) fL Immature Gran % (Auto) % Neut % (Auto) % Lymph % (Auto) % [place] % (Auto) % Eos % (Auto) % Baso % (Auto) % Neut # (Auto) (1.40-6.50) K/uL Lymph # (Auto) (1.2-3.4) K/uL [place] # (Auto) (0.11-0.59) K/uL Eos # (Auto) (0-0.50) K/uL Baso # (Auto) (0-0.2) K/uL Immature Gran # (Auto) (0.01-0.20) K/uL ESR (0-20) mm/hr PT (9.0-12.0) Seconds INR (0.9-1.1) APTT (21.0-31.0) Seconds PTT Ratio Sodium (136-145) mmol/L Potassium (3.5-5.1) mmol/L Chloride (98-107) mmol/L Carbon Dioxide (21-32) mmol/L Anion Gap (3-11) BUN (6-23) mg/dl Creatinine (0.6-1.4) mg/dl Est Cr Clr Drug Dosing ml/min Est GFR ( Amer) ml/min Est GFR (Non-Af Amer) ml/min BUN/Creatinine Ratio (10-20) Glucose (70-99(Fasting)) mg/dl Calcium (8.5-10.1) mg/dl Magnesium (1.7-2.4) mg/dl Total Bilirubin (0.2-1.0) mg/dl AST (13-39) U/L ALT (7-52) U/L Alkaline Phosphatase (34-104) U/L Troponin I High Sens (0-20) pg/ml C-Reactive Protein Cancelled (0-0.5) mg/dl Total Protein (6.0-8.3) gm/dl Albumin (3.4-5.0) gm/dl Globulin (2.5-4.0) gm/dl Albumin/Globulin Ratio (0.9-2) Lipase (11-82) U/L TSH (0.300-4.500) uIu/ml Urine Color Yellow Urine Appearance Turbid A (Clear) Urine pH 5.0 (4.5-7.5) Ur Specific [place] 1.015 (1.000-1.030) Urine Protein 2+ H (Negative) Urine Glucose (UA) 2+ H (Negative) Urine Ketones Negative (Negative) Urine Blood 2+ H (Negative) Urine Nitrite Negative (Negative) Urine Bilirubin Negative (Negative) Urine Urobilinogen Negative (Negative) Ur Leukocyte Esterase 3+ H (Negative) Urine WBC (Auto) >30 H (0-5) /hpf Urine RBC (Auto) 0-4 (0-4) /hpf U Hyaline Cast (Auto) 1-5 (0-5) /lpf U Epithel Cells (Auto) 20-30 H (0-5) /lpf Urine Bacteria (Auto) 4+ H (Negative) Urine Yeast Not Reportable SARS-CoV-2, RNA, NAAT NEGATIVE (NEGATIVE) Administered Medications Discontinued Medications Sodium Chloride (Nss 1000ml) 1,000 mls @ 999 mls/hr IV .Q1H1M STA Stop: 07/13/22 12:11 Last Admin: 07/13/22 12:08 Dose: 999 mls/hr Documented By: MT Sodium Chloride (Nss 1000ml) 1,000 mls @ 999 mls/hr IV .Q1H1M ONE Stop: 07/13/22 12:20 Last Admin: 07/13/22 12:08 Dose: 999 mls/hr Documented By: ACSANDRA Ceftriaxone Sodium (Rocephin) 2,000 mg in 70 mls @ 140 mls/hr IV NOW STA Stop: 07/13/22 12:40 Last Admin: 07/13/22 13:00 Dose: 140 mls/hr Documented By: CASANDRA Imaging Data Radiologist's Impression: Abdomen/Pelvis CT 07/13/22 11:[address] WITHOUT CONTRAST CT DOSE: 288.91 mGy.cm HISTORY: Acute nausea and vomiting. Patient with history of kidney transplant vomiting TECHNIQUE: Multiaxial CT images of the abdomen and pelvis were performed without contrast. A dose lowering technique was utilized adhering to the principles of ALARA. COMPARISON STUDY: Ultrasound 07/13/2022. FINDINGS: Cardiomegaly with coronary arterial calcifications. Clear lung bases. No pneumatosis or pneumoperitoneum. Unenhanced spleen, pancreas, gallbladder, adrenal glands and liver appear unremarkable. Coarse calcifications of the inferior right hepatic lobe. Atrophic kidneys with bilateral renal vascular calcifications. Nonobstructing calculi of the left kidney measure up to 5 mm. There is a 5 mm calculus of the distal right ureter on image 368 series 3, approximately 2 mm proximal to the ureterovesicular junction. Partial distention of the urinary bladder. Prostamegaly. Small fat filled left inguinal hernia. Atherosclerosis of the aorta. Right lower quadrant transplanted kidney is diffusely heterogeneous with perinephric and periureteral inflammation. No hydronephrosis. Colonic diverticulosis. No bowel obstruction or bowel wall thickening. Moderate colonic fecal retention. No CT evidence of acute appendicitis. Unremarkable soft tissues. Chronic appearing L5 superior endplate Schmorl's node. Degenerative changes of the spine, pelvis and hips. IMPRESSION: 1. Diffusely heterogeneous edematous appearance of the right lower quadrant transplant kidney with perinephric inflammatory stranding. Findings are compatible with a nonspecific infectious or inflammatory process versus renal transplant rejection. Correlation with laboratory analysis is needed. 2. Atrophy of the [place] kidneys with nonobstructing left renal calculi and distal right ureteral calculus. 3. Prostamegaly with evidence of chronic bladder outlet obstruction. 4. No bowel obstruction or bowel wall thickening. 5. Additional findings as above. ACT 112: Negative or not required by law. The above report was generated using voice recognition software. It may contain grammatical, syntax or spelling errors. Electronically signed by: Peterson Fisehr M.D. 07/13/2022 12:33 PM Chest X-Ray 07/13/22 11:12 XR chest 1V portable CLINICAL HISTORY: weakness TECHNIQUE: Single frontal radiograph of the chest was obtained. Comparison: Comparison is made to chest radiograph from 04/23/2022 FINDINGS: No lines and tubes are seen. Calcified aortic knob is seen. The lungs are clear. No evidence of pleural effusion or pneumothorax. IMPRESSION: No acute chest disease. ACT 112: Negative or not required by law. Electronically signed by: Juan Austin M.D. 07/13/2022 11:55 AM Discharge Plan Visit Data Chief Complaint: Vomiting Stated Complaint: REF BY DOC,FATIGUE AND WEAKNESS, VOMITING ED Provider: Gaurav Fernando Discharge Problem: Acute pyelonephritis, Renal transplant recipient, Hypercalcemia, Vomiting, Weakness, MOOKIE (acute kidney injury) Patient Disposition: Being Evaluated by Hospitalist Forms Stand Alone Forms: My [employer] Prescriptions Prescriptions: No Action (DME) blood-glucose meter [OneTouch Verio Meter] Misc See Rx Instructions .ROUTE .MEDSUPPLY Qty: 1 0RF Rx Instructions: test one- two times daily carvedilol [Coreg] 3.125 mg tablet 3.125 mg PO BID Qty: 60 5RF Rx Instructions: must administer with a meal/food (DME) lancets [OneTouch UltraSoft Lancets] Misc See Rx Instructions .ROUTE .MEDSUPPLY Qty: 200 3RF Rx Instructions: test one-two times daily dx: E11.22 (DME) OneTouch Verio test strips Strip See Rx Instructions .ROUTE .COMPLEX Qty: 200 3RF Dose Instruction: TEST ONE- TWO TIMES DAILY DX: E11.22 Rx Instructions: TEST ONE- TWO TIMES DAILY DX: E11.22 atorvastatin 10 mg tablet 10 mg PO DAILY Qty: 90 3RF Label Comments: HS (DME) pen needle, diabetic [BD Jackie 2nd Gen Pen Needle] 32 gauge x 5/32" needle See Rx Instructions .Route Qty: 100 3RF Rx Instructions: As directed w/ insulin pen pantoprazole 40 mg tablet,delayed release (DR/EC) 40 mg PO DAILY Qty: 90 1RF Basaglar KwikPen U-100 Insulin 100 unit/mL (3 mL) insulin pen 24 unit subcut QPM mycophenolate mofetil 250 mg capsule 1,000 mg PO BID entecavir 0.5 mg tablet 0.5 mg PO DAILY aspirin 81 mg tablet,chewable 1 tab PO DAILY Qty: 30 Label Comments: HS insulin aspart U-100 [Novolog PenFill U-100 Insulin] 100 unit/mL cartridge 12 unit subcut TID Nulojix 250 mg recon soln IV acetaminophen [Tylenol Extra Strength] 500 mg tablet 500 mg PO Q8H PRN metformin 500 mg tablet 500 mg PO BID Referrals Referrals: Cirilo Cummings, [Primary Care Provider] -
[2022-07-13] MEDS ORDERED: SODIUM CHLORIDE 0.9% 1000ML 1,000 ML IV ONE (11:20)
[2022-07-13 11:52] LABS: Basophils # (auto) 0.04 K/uL (0-0.2); Basophils % (auto) 0.3 %; Hematocrit (blood only) 34.7 % (42.0-52.0); Hemoglobin 11.6 g/dl (14.0-18.0); Immature Granulocytes # (auto) 0.07 K/uL (0.01-0.20); Immature Granulocytes % (auto) 0.5 %; Lymphocytes # (auto) 0.78 K/uL (1.2-3.4); Lymphocytes % (auto) 5.1 %; Mean Corpuscular Hemoglobin 29.7 pg (25.0-34.0); Mean Corpuscular Hgb Conc 33.4 g/dL (32.0-36.0); Monocytes # (auto) 1.58 K/uL (0.11-0.59); Monocytes % (auto) 10.4 %; Neutrophils # (auto) 12.75 K/uL (1.40-6.50); Neutrophils % (auto) 83.7 %; Platelet Count 314 K/uL (130-400); RDW Coefficient of Variation 13.6 % (11.5-14.5); RDW Standard Deviation 44.4 fL (36.4-46.3); White Blood Count 15.22 K/ul (4.8-10.8)
[2022-07-13 11:55] LABS: Appearance Urine Turbid (Clear); Bacteria Urine Automated 4+ (Negative); Bilirubin Urine Negative (Negative); Blood Urine 2+ (Negative); Color Urine Yellow; Epithelial Cell Urine Auto 20-30 /lpf (0-5); Glucose Urine UA 2+ (Negative); Ketones Urine Negative (Negative); Leukocyte Esterase Urine 3+ (Negative); Nitrite Urine Negative (Negative); Protein Urine 2+ (Negative); Specific Gravity Urine 1.015 (1.000-1.030); Urobilinogen Urine Negative (Negative); WBC Urine Automated >30 /hpf (0-5)
--- NOTE | 2022-07-13 11:56 | XRay Report ---
XR chest 1V portable CLINICAL HISTORY: weakness TECHNIQUE: Single frontal radiograph of the chest was obtained. Comparison: Comparison is made to chest radiograph from 04/23/2022 FINDINGS: No lines and tubes are seen. Calcified aortic knob is seen. The lungs are clear. No evidence of pleur al effusion or pneumothorax. IMPRESSION: No acute chest disease. ACT 112: Negative or not required by law. Electronically signed by: Juan Austin M.D. 07/13/2022 11:55 AM
[2022-07-13] MEDS ORDERED: cefTRIAXone SODIUM 2,000 MG/70 ML BAG IV STA (12:11)
[2022-07-13 12:16] LABS: INR 1.1 (0.9-1.1); Prothrombin Time 11.8 Seconds (9.0-12.0)
[2022-07-13 12:29] LABS: Albumin Globulin Ratio 0.8 (0.9-2); Albumin Level 3.9 gm/dl (3.4-5.0); Bilirubin,Total 0.6 mg/dl (0.2-1.0); Calcium 12.9 mg/dl (8.5-10.1); Creatinine Clr Calc Pharmacy 26.9 ml/min; Globulin 4.8 gm/dl (2.5-4.0); Magnesium 2.1 mg/dl (1.7-2.4); Potassium 4.4 mmol/L (3.5-5.1); Total Protein 8.7 gm/dl (6.0-8.3)
--- NOTE | 2022-07-13 12:35 | CT Scan Report ---
ABDOMEN AND PELVIS CT WITHOUT CONTRAST CT DOSE: 288.91 mGy.cm HISTORY: Acute nausea and vomiting. Patient with history of kidney transplant vomiting TECHNIQUE: Multiaxial CT images of the abdomen and pelvis were performed without contrast. A dose lo wering technique was utilized adhering to the principles of ALARA. COMPARISON STUDY: Ultrasound 07/13/2022. FINDINGS: Cardiomegaly with coronary arterial calcifications. Clear lung bases. No pneumatosis or pne umoperitoneum. Unenhanced spleen, pancreas, gallbladder, adrenal glands and liver appear unremarkable . Coarse calcifications of the inferior right hepatic lobe. Atrophic kidneys with bilateral renal vascular calcifications. Nonobstructing calculi of the left kid sebastian measure up to 5 mm. There is a 5 mm calculus of the distal right ureter on image 368 series 3, ap proximately 2 mm proximal to the ureterovesicular junction. Partial distention of the urinary bladder . Prostamegaly. Small fat filled left inguinal hernia. Atherosclerosis of the aorta. Right lower quad rant transplanted kidney is diffusely heterogeneous with perinephric and periureteral inflammation. N o hydronephrosis. Colonic diverticulosis. No bowel obstruction or bowel wall thickening. Moderate colonic fecal retenti on. No CT evidence of acute appendicitis. Unremarkable soft tissues. Chronic appearing L5 superior en dplate Schmorl's node. Degenerative changes of the spine, pelvis and hips. IMPRESSION: 1. Diffusely heterogeneous edematous appearance of the right lower quadrant transplant kidney with pe rinephric inflammatory stranding. Findings are compatible with a nonspecific infectious or inflammato ry process versus renal transplant rejection. Correlation with laboratory analysis is needed. 2. Atrophy of the [place] kidneys with nonobstructing left renal calculi and distal right ureteral mariam culus. 3. Prostamegaly with evidence of chronic bladder outlet obstruction. 4. No bowel obstruction or bowel wall thickening. 5. Additional findings as above. ACT 112: Negative or not required by law. The above report was generated using voice recognition software. It may contain grammatical, syntax o r spelling errors. Electronically signed by: Peterson Fisher M.D. 07/13/2022 12:33 PM
[2022-07-13 12:57] LABS: C Reactive Protein 25.44 mg/dl (0-0.5)
[2022-07-13 12:58] LABS: BUN Creatinine Ratio 13.3 (10-20); Est GFR (African American) 34.8 ml/min
--- NOTE | 2022-07-13 13:12 | History & Physical Report ---
Date of Service July 13, 2022 Assessment & Plan (1) Acute pyelonephritis: Plan: No temp, HR or RR to indicate sepsis but given renal transplant will broaden his antibiotics to meropenem and daptomycin Follow up urine culture Blood culture ordered but taken after initial ceftriaxone dose Lactate pending Consider longer course as suspect he has been unable to clear this due to immunosuppression vs. prostate involvement (2) MOOKIE (acute kidney injury): Plan: No obstructive cause on CT Suspect prerenal Sepsis fluid volume calculation for ideal body weight 2 L which she has already received Continue normal saline @ 125ml/hr (3) Renal transplant recipient: Plan: Consult nephrology (4) Hypercalcemia: Plan: IV fluids as above Start Cinacalcet that he should have started on the outpatient basis and 60 mg p.o. daily Repeat calcium in a.m. (5) Diabetes mellitus, type 2: Plan: Hemoglobin A1c 6.4 in April. We will repeat with a.m. labs Stop metformin Switch Basaglar for Lantus 24 units every afternoon NovoLog based on basal dosing: --Goal BSG Range: Low 110 mg/dL, High 140 mg/dL --Correction Factor: 30 mg/dL/unit --Carbohydrate ratio = 10 g/unit --BSGs ACHS if eating, q6h if npo (6) Hyponatremia: Plan: He appears to be intravascularly dry. Continue on normal saline as above and repeat sodium later this evening to make sure it is coming up. Plan VTE prophylaxis -heparin 5000 units SQ twice daily Diet -heart healthy, T2DM Disposition -admit to PCU Admission and Anticipated Discharge Date Admission Date: July 13, 2022 History of Present Illness Chief Complaint: Hypercalcemia Primary Care Provider: DO Alexander Huddleston (Freddie) Prashant is a 67-year-old male with renal transplant who presents to the ER on advice of his supervisor lathing due to high calcium levels. Symptoms started last Wednesday over a week ago with vomiting, decreased appetite, fatigue and sleeping all day. Initially got a work-up in the following morning with urine and lab work in the [facility] system by his supervisor lathing which showed elevated calcium but reportedly no evidence of urine infection. Due to him progressively getting worse his supervisor lathing recommended coming to the ER. He denies any specific urinary symptoms such as dysuria, flank pain, change in frequency, color or smell. No fever, but having chills today. No diarrhea, constipation, hemoptysis or hematemesis. No muscle spasms. Regarding his hypercalcemia he was started on Cinacalcet 30 mg daily which was recently increased to 60 mg daily although he has not been taking this as the pharmacy is yet to be able to fill it. He has a significant history of sepsis with E. coli bacteremia in March 2022. He had a recurrence of infection in April with E. coli in his urine which was treated with ciprofloxacin as an outpatient. Allergies Allergy/AdvReac Type Severity Reaction Status Date / Time Penicillins Allergy Mild Rash Verified 07/03/22 10:10 Home Medications Medication Instructions Recorded Confirmed Type aspirin 81 mg chewable tablet 1 tab PO DAILY #30 tabs 11/23/18 07/13/22 History blood-glucose meter (KranemTouch #1 ea 08/13/20 07/03/22 Rx Verio Meter) carvedilol 3.125 mg tablet (Coreg) 3.125 mg PO BID #60 tabs 10/03/20 07/13/22 Rx lancets (KranemTouch UltraSoft #200 ea 02/27/21 07/03/22 Rx Lancets) blood sugar diagnostic (OneTouch #200 strips 12/31/21 07/03/22 Rx Verio test strips) acetaminophen 500 mg tablet 500 mg PO Q8H PRN Pain or fever 01/30/22 07/13/22 History (Tylenol Extra Strength) belatacept 250 mg intravenous IV 01/30/22 07/03/22 History solution (Nulojix) insulin aspart U-100 100 unit/mL 12 unit subcut TID 01/30/22 07/13/22 History subcutaneous cartridge (Novolog PenFill U-100 Insulin aspart) insulin glargine 100 unit/mL (3 24 unit subcut QPM 01/30/22 07/13/22 History mL) subcutaneous pen (Basaglar KwikPen U-100 Insulin) metformin 500 mg tablet 500 mg PO BID 01/30/22 07/13/22 History atorvastatin 10 mg tablet 10 mg PO DAILY #90 tabs 03/25/22 07/13/22 Rx entecavir 0.5 mg tablet 0.5 mg PO DAILY 05/01/22 07/13/22 History mycophenolate mofetil 250 mg 1,000 mg PO BID 05/01/22 07/13/22 History capsule pantoprazole 40 mg tablet,delayed 40 mg PO DAILY #90 tabs 07/07/22 07/13/22 Rx release pen needle, diabetic 32 gauge x #100 ea 07/07/22 Rx 32" (BD Jackie 2nd Gen Pen Needle) cinacalcet 30 mg tablet 60 mg PO DAILY 07/13/22 07/13/22 History Past Med/Surg History Medical History Chronic hepatitis B Demand ischemia Diabetes mellitus, type 2 History of kidney stones Hypercalcemia Hyperlipidemia Hypertension Positive PPD Psoriasis Psoriatic arthritis Tubulovillous adenoma Surgical History A-V fistula LEFT History of colonoscopy 12/2020 repeat 3 yrs History of esophagogastroduodenoscopy (EGD) History of lithotripsy Renal transplant recipient Family History Father Myocardial infarction Family history of diabetes mellitus Other No family history of adverse response to anesthesia Denies family history of Ovarian cancer Prostate cancer Breast cancer Colorectal cancer Lung disease Social History Smoking Status: Never smoker Tobacco Type: Cigarettes Second Hand Exposure: No; Hx Alcohol Use: No Hx Substance Use: No Preferred Language: [place] Communication Ability: Effective Visual Impairment: Limited Hearing Ability: Normal Fabrication Welder Required: No Beliefs That Will Affect Care: None marital status: Current Living Situation: Spouse Current Living Situation Comment: AND SON current occupational status: employed current occupation: SELF EMPLOYED How many Children do You have: 2 Other Information That Helps Us Care for You: No Feels Safe at Home: Yes Safety Concerns: Feels Safe At This Time Childhood Exposure to Second-Hand Smoke: No caffeine: Yes Dental Care, Regularly: Yes Physical Activity Frequency: 1-2 Times per Week Seatbelt Use: always Sunscreen Use: Yes Assistive Devices: Glasses Review of Systems Review of Systems: All systems reviewed & are unremarkable except as noted in HPI & below Physical Exam Constitutional: WD/WN, vitals as above Eyes: PERRL, conjunctivae normal, anicteric sclerae Respiratory: normal respiratory effort, lungs clear to auscultation Cardiovascular: RRR, no murmur, no edema Gastrointestinal (Abdomen): normal bowel sounds, soft, nontender, no hepatosplenomegaly Musculoskeletal: no cyanosis or clubbing, extremities motor strength 5/5 Skin: no rashes, warm and dry Neurologic: moves all extremities and awake; not confused Psychiatric: A+Ox3, euthymic affect Results & Data Results & Data ([facility]) Vital Signs (Past 12 Hours) Vital Signs Temp Pulse Resp BP Pulse Ox O2 Del Method 07/13/22 12:14 72 16 124/61 98 07/13/22 11:00 36.8 C 74 18 105/67 99 Room Air Laboratory Results Abnormal lab results 07/13/22 07/13/22 07/13/22 Range/Units 11:11 11:11 11:11 WBC 15.22 H (4.8-10.8) K/ul RBC 3.90 L (4.70-6.10) M/uL Hgb 11.6 L (14.0-18.0) g/dl Hct 34.7 L (42.0-52.0) % Neut # (Auto) 12.75 H (1.40-6.50) K/uL Lymph # (Auto) 0.78 L (1.2-3.4) K/uL [place] # (Auto) 1.58 H (0.11-0.59) K/uL ESR 116 H (0-20) mm/hr Sodium 126 L (136-145) mmol/L Chloride 91 L (98-107) mmol/L BUN 29 H (6-23) mg/dl Creatinine 2.18 H (0.6-1.4) mg/dl Glucose 190 H (70-99(Fasting)) mg/dl Calcium 12.9 H* (8.5-10.1) mg/dl Alkaline Phosphatase 138 H (34-104) U/L Troponin I High Sens 24.0 H (0-20) pg/ml C-Reactive Protein 25.44 H (0-0.5) mg/dl Total Protein 8.7 H (6.0-8.3) gm/dl Globulin 4.8 H (2.5-4.0) gm/dl Albumin/Globulin Ratio 0.8 L (0.9-2) Urine Appearance (Clear) Urine Protein (Negative) Urine Glucose (UA) (Negative) Urine Blood (Negative) Ur Leukocyte Esterase (Negative) Urine WBC (Auto) (0-5) /hpf U Epithel Cells (Auto) (0-5) /lpf Urine Bacteria (Auto) (Negative) 07/13/22 Range/Units 11:15 WBC (4.8-10.8) K/ul RBC (4.70-6.10) M/uL Hgb (14.0-18.0) g/dl Hct (42.0-52.0) % Neut # (Auto) (1.40-6.50) K/uL Lymph # (Auto) (1.2-3.4) K/uL [place] # (Auto) (0.11-0.59) K/uL ESR (0-20) mm/hr Sodium (136-145) mmol/L Chloride (98-107) mmol/L BUN (6-23) mg/dl Creatinine (0.6-1.4) mg/dl Glucose (70-99(Fasting)) mg/dl Calcium (8.5-10.1) mg/dl Alkaline Phosphatase (34-104) U/L Troponin I High Sens (0-20) pg/ml C-Reactive Protein (0-0.5) mg/dl Total Protein (6.0-8.3) gm/dl Globulin (2.5-4.0) gm/dl Albumin/Globulin Ratio (0.9-2) Urine Appearance Turbid A (Clear) Urine Protein 2+ H (Negative) Urine Glucose (UA) 2+ H (Negative) Urine Blood 2+ H (Negative) Ur Leukocyte Esterase 3+ H (Negative) Urine WBC (Auto) >30 H (0-5) /hpf U Epithel Cells (Auto) 20-30 H (0-5) /lpf Urine Bacteria (Auto) 4+ H (Negative) Diagnostic Findings XR chest 1V portable CLINICAL HISTORY: weakness TECHNIQUE: Single frontal radiograph of the chest was obtained. Comparison: Comparison is made to chest radiograph from 04/23/2022 FINDINGS: No lines and tubes are seen. Calcified aortic knob is seen. The lungs are clear. No evidence of pleural effusion or pneumothorax. IMPRESSION: No acute chest disease. ABDOMEN AND PELVIS CT WITHOUT CONTRAST CT DOSE: 288.91 mGy.cm HISTORY: Acute nausea and vomiting. Patient with history of kidney transplant vomiting TECHNIQUE: Multiaxial CT images of the abdomen and pelvis were performed without contrast. A dose lowering technique was utilized adhering to the principles of ALARA. COMPARISON STUDY: Ultrasound 07/13/2022. FINDINGS: Cardiomegaly with coronary arterial calcifications. Clear lung bases. No pneumatosis or pneumoperitoneum. Unenhanced spleen, pancreas, gallbladder, adrenal glands and liver appear unremarkable. Coarse calcifications of the inferior right hepatic lobe. Atrophic kidneys with bilateral renal vascular calcifications. Nonobstructing calculi of the left kidney measure up to 5 mm. There is a 5 mm calculus of the distal right ureter on image 368 series 3, approximately 2 mm proximal to the ureterovesicular junction. Partial distention of the urinary bladder. Prostamegaly. Small fat filled left inguinal hernia. Atherosclerosis of the aorta. Right lower quadrant transplanted kidney is diffusely heterogeneous with perinephric and periureteral inflammation. No hydronephrosis. Colonic diverticulosis. No bowel obstruction or bowel wall thickening. Moderate colonic fecal retention. No CT evidence of acute appendicitis. Unremarkable soft tissues. Chronic appearing L5 superior endplate Schmorl's node. Degenerative changes of the spine, pelvis and hips. IMPRESSION: 1. Diffusely heterogeneous edematous appearance of the right lower quadrant transplant kidney with perinephric inflammatory stranding. Findings are compatible with a nonspecific infectious or inflammatory process versus renal transplant rejection. Correlation with laboratory analysis is needed. 2. Atrophy of the [place] kidneys with nonobstructing left renal calculi and distal right ureteral calculus. 3. Prostamegaly with evidence of chronic bladder outlet obstruction. 4. No bowel obstruction or bowel wall thickening. 5. Additional findings as above. Medications Administered ER medications given: Normal saline 1 L bolus Normal saline 1 L bolus Ceftriaxone 2 g IV ECG Indication: other Rate (beats per minute): 69 Rhythm: normal sinus Code Status & VTE Plan Code Status Full VTE Prophylaxis Plan VTE Prophylaxis will be ordered: Yes PG Care Time/CCT Total # of Minutes Spent Total Time Spent with Patient: Total time spent is greater than 50% in coordination of care (as documented) at patient's floor/unit and/or counseling patient: Coding Level of Care Code 33922 INT INP/OBS CARE 3/75MIN Diagnoses Acute pyelonephritis N10 MOOKIE (acute kidney injury) N17.9 Renal transplant recipient Z94.0 Hypercalcemia E83.52 Diabetes mellitus, type 2 E11.9 Hyponatremia E87.1
[2022-07-13 13:13] LABS: Partial Thromboplastin Ratio 0.9; Partial Thromboplastin Time 25.4 Seconds (21.0-31.0)
[2022-07-13 13:16] LABS: RBC Urine Automated 0-4 /hpf (0-4)
[2022-07-13] MEDS ORDERED: MEROPENEM 500 MG in SYRINGE 0 ML IV STA (13:25)
[2022-07-13] MEDS ORDERED: DAPTOmycin 250 MG in SYRINGE 0 ML IV STA (13:28)
--- NOTE | 2022-07-13 16:19 | Nephrology Consultation ---
Date of Consultation July 13, 2022 Assessment & Plan (1) MOOKIE (acute kidney injury): (2) Hypercalcemia: (3) Acute pyelonephritis: (4) Anemia: (5) Hyponatremia: (6) Immunocompromised state: (7) Renal transplant recipient: Plan 67-year-old male with history of renal transplant with decent allograft function, admitted with sepsis with possible pyelonephritis, vomiting, MOOKIE and multiple electrolyte abnormality including hyponatremia and hypercalcemia. -- Continue on IV fluid, empiric antibiotic pending blood culture -- on Sensipar 60 mg daily -- continue CellCept as nausea improved. -- with repeated h/o UTI over last few months, he was already scheduled for out pt urology evaluation. May also need to consider adjustment of immunosuppressive regimen per transplant team recommendations --check SPEP, UPEP Thank you for allowing me to participate in your patient's care. It was a pleasure to see Donald. History of Present Illness Reason for Consultation: MOOKIE, Hypercalcemia, history of renal transplant, on immunosuppression. History of Present Illness Mr. Donald Cerda is a 67-year-old male with past medical history significant for ESRD secondary to diabetic nephropathy status post renal transplant, chronic hypercalcemia admitted to hospital with MOOKIE, hypercalcemia and sepsis with possible pyelonephritis. Nephrology consult was requested for management of above. EMR records were reviewed in detail during patient's visit. Donald presented to ER with nausea, vomiting, poor p.o. intake as well as generalized weakness for more than a week. On admission lab showed MOOKIE with creatinine 2.2, calcium 12.9, sodium was 126. CBC showed WBC 15, hemoglobin 11.6, stable at baseline. Albumin was 3.9 with globulin 4.8. Chest x-ray was unremarkable. EKG with no acute changes. CT abdomen pelvis without contrast showed perinephric stranding and edematous right lower quadrant renal allograft, enlarged prostate with urinary bladder changes consistent with chronic bladder outlet obstruction. He was started empirically on IV NS, ceftriaxone and received meropenem and daptomycin. Has been having repeated episodes of UTI over last few months, this is second hospitalization for UTI since March. He was scheduled for out pt urology evaluation. ESRD s/p living unrelated donor transplant at [facility] on 02/12/2021, was donor. The transplant was performed on February 12, 2021.Decent allograft function with b/l cr 1.3. No h/o rejection reported. CMV -/+, EBV +/+. Thymo induction. Maintenance IS with Belatacept IV infusion monthly and MMF. Has been having chronic hypercalcemia, was on cinacalcet 30 mg daily but recently dose increased to 60 mg but he did not receive that yet. UPEP in Mar emebr was positive for monoclonal protein. Medical history is also notable for DM, HTN, significant history of kidney stones, hyperlipidemia, chronic hepatitis B, anemia, and psoriasis. Started to feel better, denies nausea. Allergies Allergy/AdvReac Type Severity Reaction Status Date / Time Penicillins Allergy Mild Rash Verified 07/03/22 10:10 Home Medications Medication Instructions Recorded Confirmed Type aspirin 81 mg chewable tablet 1 tab PO DAILY #30 tabs 11/23/18 07/13/22 History blood-glucose meter (Biosystem DevelopmentTouch #1 ea 08/13/20 07/03/22 Rx Verio Meter) carvedilol 3.125 mg tablet (Coreg) 3.125 mg PO BID #60 tabs 10/03/20 07/13/22 Rx lancets (OneTouch UltraSoft #200 ea 02/27/21 07/03/22 Rx Lancets) blood sugar diagnostic (OneTouch #200 strips 12/31/21 07/03/22 Rx Verio test strips) acetaminophen 500 mg tablet 500 mg PO Q8H PRN Pain or fever 01/30/22 07/13/22 History (Tylenol Extra Strength) belatacept 250 mg intravenous IV 01/30/22 07/03/22 History solution (Nulojix) insulin aspart U-100 100 unit/mL 12 unit subcut TID 01/30/22 07/13/22 History subcutaneous cartridge (Novolog PenFill U-100 Insulin aspart) insulin glargine 100 unit/mL (3 24 unit subcut QPM 01/30/22 07/13/22 History mL) subcutaneous pen (Basaglar KwikPen U-100 Insulin) metformin 500 mg tablet 500 mg PO BID 01/30/22 07/13/22 History atorvastatin 10 mg tablet 10 mg PO DAILY #90 tabs 03/25/22 07/13/22 Rx entecavir 0.5 mg tablet 0.5 mg PO DAILY 05/01/22 07/13/22 History mycophenolate mofetil 250 mg 1,000 mg PO BID 05/01/22 07/13/22 History capsule pantoprazole 40 mg tablet,delayed 40 mg PO DAILY #90 tabs 07/07/22 07/13/22 Rx release pen needle, diabetic 32 gauge x #100 ea 07/07/22 Rx 32" (BD Jackie 2nd Gen Pen Needle) cinacalcet 30 mg tablet 60 mg PO DAILY 07/13/22 07/13/22 History Patient History Medical History Chronic hepatitis B Demand ischemia Diabetes mellitus, type 2 History of kidney stones Hypercalcemia Hyperlipidemia Hypertension Positive PPD Psoriasis Psoriatic arthritis Tubulovillous adenoma Surgical History A-V fistula LEFT History of colonoscopy 12/2020 repeat 3 yrs History of esophagogastroduodenoscopy (EGD) History of lithotripsy Renal transplant recipient Family History Father Myocardial infarction Family history of diabetes mellitus Other No family history of adverse response to anesthesia Denies family history of Ovarian cancer Prostate cancer Breast cancer Colorectal cancer Lung disease Social History Smoking Status: Never smoker Tobacco Type: Cigarettes Second Hand Exposure: No; Hx Alcohol Use: No Hx Substance Use: No Preferred Language: Greenlandic Communication Ability: Effective Visual Impairment: Limited Hearing Ability: Normal Application Security Specialist Required: No Beliefs That Will Affect Care: None marital status: Current Living Situation: Spouse Current Living Situation Comment: AND SON current occupational status: employed current occupation: SELF EMPLOYED How many Children do You have: 2 Other Information That Helps Us Care for You: No Feels Safe at Home: Yes Safety Concerns: Feels Safe At This Time Childhood Exposure to Second-Hand Smoke: No caffeine: Yes Dental Care, Regularly: Yes Physical Activity Frequency: 1-2 Times per Week Seatbelt Use: always Sunscreen Use: Yes Assistive Devices: Glasses Review of Systems Review of Systems: Detailed review of system was otherwise unremarkable except mentioned above in HPI. Physical Exam Constitutional: WD/WN, vitals as above no acute distress Eyes: + anicteric sclerae Neck: normal visual inspection Respiratory: normal respiratory effort; no respiratory distress and no cough Auscultation: lungs clear to auscultation bilaterally Cardiovascular: Rate/Rhythm: regular rate and regular rhythm Heart Sounds: normal S1 and normal S2 Extremities: no edema Gastrointestinal (Abdomen): Inspection/Auscultation: abdomen normal to inspection and normal bowel sounds Percussion/Palpation: abdomen soft; abdomen nontender Musculoskeletal: Extremities: extremities normal to inspection Skin: normal turgor; no rashes Neurologic: no focal motor deficits and not confused Psychiatric: Orientation: alert and oriented x 3 Affect: euthymic affect Results & Data ([facility]) Vital Signs (Past 12 Hours) Vital Signs Temp Pulse Resp BP Pulse Ox O2 Del Method 07/13/22 15:38 88 07/13/22 15:16 36.7 C 07/13/22 12:14 72 16 124/61 98 07/13/22 11:00 36.8 C 74 18 105/67 99 Room Air PG Care Time/CCT Total # of Minutes Spent Total Time Spent with Patient: Total time spent is greater than 50% in coordination of care (as documented) at patient's floor/unit and/or counseling patient: Coding Level of Care Code INP/OBS CONSULT LVL 5, 80 MIN Diagnoses MOOKIE (acute kidney injury) N17.9 Hypercalcemia E83.52 Acute pyelonephritis N10 Anemia D64.9 Anemia type: due to chronic kidney disease Hyponatremia E87.1 Immunocompromised state D84.9 Renal transplant recipient Z94.0 (1) Anemia Anemia type: due to chronic kidney disease
[2022-07-13] MEDS: SODIUM CHLORIDE 0.9% 1000ML 1,000 ML IV SCH ×2 (17:08→23:32)
[2022-07-13] MEDS ORDERED: GLUCAGON FOR INJ 1 MG VIAL SQ PRN (17:16)
[2022-07-13] MEDS ORDERED: GLUCOSE 10 TAB/TUBE PO PRN (17:16)
[2022-07-13] MEDS ORDERED: PHARMACY GLYCEMIC MGMT CONSULT PRN (17:16)
[2022-07-13] MEDS ORDERED: DEXTROSE 50% 50 ML SYRINGE IV PRN (17:16)
[2022-07-13] MEDS ORDERED: CARBOHYDRATES FOR HYPOGLYCEMIA PO PRN (17:16)
[2022-07-13] MEDS ORDERED: GLUCOSE 40% GEL 15 GM TUBE PO PRN (17:16)
[2022-07-13] MEDS ORDERED: ONDANSETRON INJ 2 MG/ML 2 ML VIAL IV PRN (17:16)
[2022-07-13] MEDS: INSULIN ASPART PER UNIT SC SCH ×2 (18:45→21:52)
[2022-07-13] MEDS ORDERED: NON-FORMULARY MEDICATION (Insulin Glargine [Basaglar Kwikpen U-100 Insulin] 100 unit/mL (3 SQ SCH (21:00)
[2022-07-13] MEDS: CINACALCET HCL 30 MG TAB PO SCH (21:50)
[2022-07-13] MEDS: carvediloL 3.125 MG TAB PO SCH (21:51)
[2022-07-13] MEDS: MEROPENEM 500 MG in SYRINGE 0 ML IV SCH (21:51)
[2022-07-13] MEDS: LANTUS PER UNIT CHARGE SQ SCH (21:52)
[2022-07-13 21:53] LABS: Calcium 11.5 mg/dl (8.5-10.1); Creatinine Clr Calc Pharmacy 29.1 ml/min; Est GFR (African American) 38.6 ml/min; Est GFR (Non-African American) 33.3 ml/min; Potassium 4.2 mmol/L (3.5-5.1)
[2022-07-13] MEDS ORDERED: ACETAMINOPHEN 500 MG TAB PO ONE (23:33)
[2022-07-13] MEDS: MYCOPHENOLATE MOFETIL 250 MG CAP PO SCH (23:47)
[2022-07-14] MEDS: SODIUM CHLORIDE 0.9% 1000ML 1,000 ML IV SCH ×3 (01:15→17:04)
[2022-07-14] MEDS: MEROPENEM 500 MG in SYRINGE 0 ML IV SCH ×3 (05:07→20:43)
--- NOTE | 2022-07-14 06:19 | Electrocardiogram Report ---
Test Reason : Blood Pressure : / mmHG Vent. Rate : 069 BPM Atrial Rate : 069 BPM P-R Int : 156 ms QRS Dur : 088 ms QT Int : 362 ms P-R-T Axes : 036 007 023 degrees QTc Int : 387 ms Poor data quality, interpretation may be adversely affected Normal sinus rhythm Cannot rule out Inferior infarct (cited on or before 23-APR-2022) Nonspecific ST abnormality Abnormal ECG When compared with ECG of 24-APR-2022 00:19, ST elevation now present in Lateral leads Nonspecific T wave abnormality no longer evident in Anterolateral leads QT has shortened Confirmed by Jerome Lloyd ([id number]) on 07/14/2022 6:19:18 AM Referred By: Confirmed By:Jerome Lloyd
[2022-07-14 06:53] LABS: Basophils # (auto) 0.04 K/uL (0-0.2); Basophils % (auto) 0.4 %; Eosinophils # (auto) 0.02 K/uL (0-0.50); Eosinophils % (auto) 0.2 %; Hematocrit (blood only) 30.6 % (42.0-52.0); Immature Granulocytes # (auto) 0.08 K/uL (0.01-0.20); Immature Granulocytes % (auto) 0.7 %; Lymphocytes # (auto) 0.68 K/uL (1.2-3.4); Lymphocytes % (auto) 6.4 %; Mean Corpuscular Hemoglobin 29.7 pg (25.0-34.0); Mean Corpuscular Hgb Conc 32.7 g/dL (32.0-36.0); Mean Corpuscular Volume 90.8 fL (80.0-100.0); Mean Platelet Volume 10.1 fL (9.4-12.4); Monocytes # (auto) 1.77 K/uL (0.11-0.59); Monocytes % (auto) 16.6 %; Neutrophils # (auto) 8.09 K/uL (1.40-6.50); Neutrophils % (auto) 75.7 %; Platelet Count 231 K/uL (130-400); RDW Coefficient of Variation 13.5 % (11.5-14.5); RDW Standard Deviation 44.6 fL (36.4-46.3); Red Blood Count 3.37 M/uL (4.70-6.10); White Blood Count 10.68 K/ul (4.8-10.8)
[2022-07-14 06:56] LABS: Albumin Level 3.1 gm/dl (3.4-5.0); BUN Creatinine Ratio 14.6 (10-20); Calcium 11.6 mg/dl (8.5-10.1); Creatinine Clr Calc Pharmacy 31.9 ml/min; Est GFR (African American) 42.4 ml/min; Est GFR (Non-African American) 36.6 ml/min; Phosphorus 2.6 mg/dl (2.5-4.9); Potassium 4.3 mmol/L (3.5-5.1)
[2022-07-14] MEDS ORDERED: bisacodyL 5 MG TABEC PO PRN (08:34)
--- NOTE | 2022-07-14 08:34 | Hospitalist Progress Note ---
Date of Service July 14, 2022 Assessment & Plan (1) Acute pyelonephritis: Plan: Presented with fatigue, vomiting x1 week and found on abdominal imaging to have evidence of possible pyelonephritis in RLQ transplanted kidney. UA infected appearing, UCx collected with evidence of >100k CFU GNR (though after first ceftriaxone dose). Lactate 1.6 on admission. Received 2L NSS in ER followed by continued NSS at 125cc/hr. Started on dapto/katie given immunocompromised status until cultures and sensitivities are complete. Did have some complaints of incomplete emptying of bladder, will start tamsulosin. Can consider longer course of Abx as suspect he has been unable to clear this or has repeat infections due to immunosuppression vs. prostate involvement. Is to have Urology follow up outpatient given several hospitalizations at this point 2/2 UTI. (2) MOOKIE (acute kidney injury): Plan: Creatinine 2.18 -> 1.85 with IV fluids since admission. No obstructive cause of MOOKIE on CT. Suspect due to pyelonephritis/renal inflammation in only functional kidney in addition to prerenal causes from poor appetite/vomiting at home x1 week. Continue normal saline @ 125cc/hr with repeat BMP in AM. (3) Hypercalcemia: Plan: Ca 12.9 -> 11.6 with IVF and cinacalcet. IV fluids as above Repeat calcium in a.m. SPEP and UPEP pending. (4) Renal transplant recipient: Plan: Nephrology consulted and appreciate recommendations. Trend ESR and CRP (suspect elevated due to acute pyelonephritis as opposed to transplant rejection). Continue CellCept. (5) Hyponatremia: Plan: Intravascularly dry on admission, with Na 126 -> 132 with IVF as above, will continue with repeat BMP in AM. (6) Diabetes mellitus, type 2: Plan: Hemoglobin A1c 6.9% on 07/14. Hold metformin while admitted in favor of Lantus 24 units HS and SSI. (7) Hypertension: Plan: History of, BP normotensive at this time. Continue home Coreg. (8) Anemia: Plan: History of anemia of chronic disease; Hgb near baseline at 10 at this time (as high as 12 on admission however was intravascularly dry at that time). (9) Constipation: Plan: Reports of no BM for a few days per patient, bowel regimen added. Plan VTE prophylaxis - heparin 5000 units SQ twice daily Diet - heart healthy, T2DM Disposition - PCU FULL CODE Admission and Anticipated Discharge Date Admission Date: July 13, 2022 Subjective Today yamila is without complaints of weakness, nausea, vomiting. Also denies chest pain or SOB. Reports ate full breakfast without issues, which for the last week he has been unable to do. Review of Systems Review of Systems: All systems reviewed & are unremarkable except as noted in Subjective Physical Exam Constitutional: WD/WN, vitals as above Respiratory: normal respiratory effort, lungs clear to auscultation Cardiovascular: RRR, no murmur, no edema Gastrointestinal (Abdomen): normal bowel sounds, soft, nontender, no hepatosplenomegaly Skin: no rashes, warm and dry Psychiatric: A+Ox3, euthymic affect Results & Data Results & Data ([facility]) Vital Signs (Past 12 Hours) Vital Signs Temp Pulse Pulse Resp BP Pulse Ox O2 Del Method 07/14/22 07:50 36.3 C L 56 L 18 118/61 96 Room Air 07/14/22 04:19 36.3 C L 70 16 127/58 L 98 Room Air 07/13/22 23:14 38.4 C H 76 16 97/60 L 97 Room Air 07/13/22 22:47 73 07/13/22 22:13 Room Air 07/13/22 21:35 37.3 C PG Care Time/CCT Total # of Minutes Spent Total Time Spent with Patient: Total time spent is greater than 50% in coordination of care (as documented) at patient's floor/unit and/or counseling patient: Coding Level of Care Code 30487 SUB INP/OBS CARE 3/50MIN Diagnoses Acute pyelonephritis N10 MOOKIE (acute kidney injury) N17.9 Hypercalcemia E83.52 Renal transplant recipient Z94.0 Hyponatremia E87.1 Diabetes mellitus, type 2 E11.9 Hypertension I15.1; N28.89 Hypertension type: secondary to other renal disorders Anemia D64.9 Anemia type: due to chronic kidney disease Constipation K59.00 (7) Hypertension Hypertension type: secondary to other renal disorders Qualified Code(s): I15.1 - Hypertension secondary to other renal disorders; N28.89 - Other specified disorders of kidney and ureter (8) Anemia Anemia type: due to chronic kidney disease
[2022-07-14] MEDS: MYCOPHENOLATE MOFETIL 250 MG CAP PO SCH ×2 (09:00→20:42)
[2022-07-14] MEDS: INSULIN ASPART PER UNIT SC SCH ×4 (09:00→21:28)
[2022-07-14] MEDS: carvediloL 3.125 MG TAB PO SCH ×2 (09:01→20:42)
[2022-07-14] MEDS: CINACALCET HCL 30 MG TAB PO SCH (09:01)
[2022-07-14] MEDS: ASPIRIN 81 MG CHEW PO SCH (09:01)
[2022-07-14] MEDS: PANTOprazole 40 MG TAB PO SCH (09:02)
[2022-07-14 09:26] LABS: Estimated Average Glucose 151 mg/dl; Hemoglobin A1C 6.9 % (4.5-5.6)
--- NOTE | 2022-07-14 10:21 | Nephrology Progress Note ---
Date of Service July 14, 2022 Assessment & Plan (1) OMOKIE (acute kidney injury): (2) Hypercalcemia: (3) Acute pyelonephritis: (4) Anemia: (5) Hyponatremia: (6) Immunocompromised state: (7) Renal transplant recipient: Plan 67-year-old male with history of renal transplant with decent allograft function, admitted with sepsis with possible pyelonephritis, vomiting, MOOKIE and multiple electrolyte abnormality including hyponatremia and hypercalcemia. MOOKIE and electrolyte abnormality setting of volume depletion hypercalcemia, unlikely any acute rejection as his been getting his immunosuppressive regularly and renal function already started to improve with IV hydration. Clinically doing much better, appetite improved. Nausea resolved. Has been afebrile. Blood pressure stable. Renal function started to improve, creatinine down to 1.8, electrolyte improving. -- Continue on IV fluid, empiric antibiotic pending blood culture -- Sensipar 60 mg daily, CellCept -- CBC, renal panel in am Admission and Anticipated Discharge Date Admission Date: July 13, 2022 Leonardo Bennett was seen and evaluated this morning. Overall he was feeling well, reports improvement in appetite and he had full breakfast this morning. Has been voiding normally. Remained afebrile overnight. Renal function started to improve, creatinine down to 1.8, electrolyte improving, calcium down to 12. Leukocytosis resolved. Review of Systems Review of Systems: A detailed review of system was otherwise unremarkable. Physical Exam Constitutional: WD/WN, vitals as above no acute distress Respiratory: no respiratory distress Auscultation: lungs clear to auscultation bilaterally Cardiovascular: RRR, no murmur, no edema Musculoskeletal: Extremities: extremities normal to inspection Skin: no rashes Neurologic: no focal motor deficits Psychiatric: Orientation: alert and oriented x 3 Affect: euthymic affect Results & Data ([facility]) Vital Signs (Past 12 Hours) Vital Signs Temp Pulse Pulse Resp BP Pulse Ox O2 Del Method 07/14/22 08:25 61 07/14/22 07:50 36.3 C L 56 L 18 118/61 96 Room Air 07/14/22 04:19 36.3 C L 70 16 127/58 L 98 Room Air 07/13/22 23:14 38.4 C H 76 16 97/60 L 97 Room Air 07/13/22 22:47 73 PG Care Time/CCT Total # of Minutes Spent Total Time Spent with Patient: Total time spent is greater than 50% in coordination of care (as documented) at patient's floor/unit and/or counseling patient: Coding Level of Care Code 78680 SUB INP/OBS CARE 350MIN Diagnoses MOOKIE (acute kidney injury) N17.9 Hypercalcemia E83.52 Acute pyelonephritis N10 Anemia D64.9 Anemia type: due to chronic kidney disease Hyponatremia E87.1 Immunocompromised state D84.9 Renal transplant recipient Z94.0 (4) Anemia Anemia type: due to chronic kidney disease
[2022-07-14] MEDS: ENTECAVIR 0.5 MG PO SCH (13:45)
--- NOTE | 2022-07-14 13:57 | Pharmacy Report ---
Pharmacy Glycemic Short Note 2 - Date of Service July 14, 2022 - Glycemic Short BSG Results (Last 24 hours): 07/13/22 07/13/22 07/13/22 16:47 20:22 21:01 Glucose 164 H POC Glucose 92 145 H 07/14/22 07/14/22 07/14/22 05:43 07:31 11:44 Glucose 147 H POC Glucose 131 H 90 OUTPATIENT ANTIDIABETIC REGIMEN: * Lantus 24 units qPM * Novolog 12 units TIDM * Metformin * HbA1C= 6.9% (07/14/22) ASSESSMENT: * Mr Cerda is a 67 y/o M with a PMH of T2DM who presents with MOOKIE and UTI. * BSGs yesterday were 92-145 mg/dL. * Patient received Lantus 12 units last night (half of his home dose). Fasting today is 131 mg/dL so will continue Lantus 12 units nightly. * Will do weight-based stress of 2-3 Novolog. PLAN FOR INPATIENT GLYCEMIC CONTROL: * Hold outpatient oral diabetes medications * Basal insulin * Lantus 12 units SQ HS * Bolus insulin * NovoLog per scale ACHS or Q6hrs while NPO * Goal Range: Low 110 mg/dL - High 140 mg/dL * Correction Factor: 35 mg/dL/unit * Nutritional / Prandial insulin per carb ratio of 1 unit per 12 grams CHO consumed
[2022-07-14] MEDS: LANTUS PER UNIT CHARGE SQ SCH (20:43)
[2022-07-14] MEDS: TAMSULOSIN HCL 0.4 MG CAP PO SCH (20:43)
[2022-07-14] MEDS: HEPARIN SOD 5,000 UNIT/0.5 ML VIAL SQ SCH ×2 (20:43→20:45)
[2022-07-15] MEDS: SODIUM CHLORIDE 0.9% 1000ML 1,000 ML IV SCH ×2 (00:58→08:13)
--- NOTE | 2022-07-15 04:24 | Electrocardiogram Report ---
Test Reason : Blood Pressure : / mmHG Vent. Rate : 084 BPM Atrial Rate : 084 BPM P-R Int : 154 ms QRS Dur : 068 ms QT Int : 316 ms P-R-T Axes : -10 017 042 degrees QTc Int : 373 ms Poor data quality, interpretation may be adversely affected Normal sinus rhythm Normal ECG When compared with ECG of 13-JUL-2022 11:29, No significant change Reconfirmed by Jerome Lloyd ([id number]) on 07/15/2022 4:24:54 AM Referred By: REFERRED SELF Confirmed By:Jerome Lloyd
[2022-07-15] MEDS: MEROPENEM 500 MG in SYRINGE 0 ML IV SCH (06:10)
[2022-07-15 06:11] LABS: Basophils # (auto) 0.04 K/uL (0-0.2); Basophils % (auto) 0.5 %; Eosinophils # (auto) 0.06 K/uL (0-0.50); Eosinophils % (auto) 0.8 %; Hematocrit (blood only) 29.9 % (42.0-52.0); Hemoglobin 9.6 g/dl (14.0-18.0); Immature Granulocytes # (auto) 0.06 K/uL (0.01-0.20); Immature Granulocytes % (auto) 0.8 %; Lymphocytes # (auto) 0.63 K/uL (1.2-3.4); Lymphocytes % (auto) 8.4 %; Mean Corpuscular Hemoglobin 29.2 pg (25.0-34.0); Mean Corpuscular Hgb Conc 32.1 g/dL (32.0-36.0); Mean Corpuscular Volume 90.9 fL (80.0-100.0); Mean Platelet Volume 10.2 fL (9.4-12.4); Monocytes # (auto) 1.31 K/uL (0.11-0.59); Monocytes % (auto) 17.5 %; Neutrophils # (auto) 5.37 K/uL (1.40-6.50); Platelet Count 234 K/uL (130-400); RDW Coefficient of Variation 13.1 % (11.5-14.5); RDW Standard Deviation 43.8 fL (36.4-46.3); Red Blood Count 3.29 M/uL (4.70-6.10); White Blood Count 7.47 K/ul (4.8-10.8)
--- NOTE | 2022-07-15 07:18 | Hospitalist Progress Note ---
Date of Service July 15, 2022 Assessment & Plan (1) Acute pyelonephritis: Plan: Presented with fatigue, vomiting x1 week and found on abdominal imaging to have evidence of possible pyelonephritis in RLQ transplanted kidney. UA infected appearing, UCx collected with evidence of >100k CFU GNR (though after first ceftriaxone dose). Lactate 1.6 on admission. Received 2L NSS in ER followed by NSS at 125cc/hr, discontinued today. Started on dapto/katie given immunocompromised status -> transitioned to ceftriaxone as UCx growing >100,000 CFU E. coli sensitive to such. Did have some complaints of incomplete emptying of bladder, will continue tamsulosin. Urology consulted 07/15 as patient has had recurrent UTI requiring hospitalization, for eval of possible outlet obstruction (prostate?) -> Urology suspicious of [place] kidney stone as cause of recurrent infection, NPO for possible intervention 07/16. (2) MOOKIE (acute kidney injury): Plan: Creatinine 2.18 -> 1.60 with IV fluids since admission. Suspect due to pyelonephritis/renal inflammation in only functional kidney in addition to prerenal causes from poor appetite/vomiting at home x1 week. Patient having good oral intake and good return of kidney function, so will d/c fluids. (3) Hypercalcemia: Plan: Ca 12.9 -> 9.8 with IVF and cinacalcet 60mg daily. IV fluids as above Daily BMP. SPEP and UPEP pending. (4) Renal transplant recipient: Plan: Nephrology consulted and appreciate recommendations, care plan reviewed with Dr. Christina. Continue CellCept. (5) Hyponatremia: Plan: Intravascularly dry on admission, with Na 126 -> 133 with IVF as above, d/c IVF and daily BMP. (6) Diabetes mellitus, type 2: Plan: Hemoglobin A1c 6.9% on 07/14. Holding metformin while admitted in favor of Lantus 24 units HS and SSI. (7) Hypertension: Plan: History of, BP normotensive at this time. Continue home Coreg. (8) Anemia: Plan: History of anemia of chronic disease; Hgb near baseline at 9.6 at this time (as high as 12 on admission however was intravascularly dry at that time). (9) Constipation: Plan: Patient had BM yesterday after starting bowel regimen, will continue. Plan VTE prophylaxis - heparin 5000 units SQ twice daily, holding for possible procedure 2/16 Diet - heart healthy, T2DM Disposition - PCU FULL CODE Admission and Anticipated Discharge Date Admission Date: July 13, 2022 Subjective No overnight events. Donald is tolerating diet well, no abdominal pains, no further nausea, no fevers or chills. Also denies chest pain, SOB, lightheadedness. Review of Systems Review of Systems: All systems reviewed & are unremarkable except as noted in Subjective Physical Exam Constitutional: WD/WN, vitals as above Respiratory: normal respiratory effort, lungs clear to auscultation Cardiovascular: RRR, no murmur, no edema Gastrointestinal (Abdomen): normal bowel sounds, soft, nontender, no hepatosplenomegaly Skin: no rashes, warm and dry Psychiatric: A+Ox3, euthymic affect Results & Data Results & Data ([facility]) Vital Signs (Past 12 Hours) Vital Signs Temp Pulse Pulse Resp BP Pulse Ox O2 Del Method 07/15/22 04:00 36.4 C L 56 L 14 111/55 L 94 Room Air 07/14/22 22:10 59 L 07/14/22 23:01 36.8 C 58 L 15 97 Room Air 07/14/22 19:45 Room Air PG Care Time/CCT Total # of Minutes Spent Total Time Spent with Patient: Total time spent is greater than 50% in coordination of care (as documented) at patient's floor/unit and/or counseling patient: Coding Level of Care Code 41299 SUB INP/OBS CARE 3/50MIN Diagnoses Acute pyelonephritis N10 MOOKIE (acute kidney injury) N17.9 Hypercalcemia E83.52 Renal transplant recipient Z94.0 Hyponatremia E87.1 Diabetes mellitus, type 2 E11.9 Hypertension I15.1; N28.89 Hypertension type: secondary to other renal disorders Anemia D64.9 Anemia type: due to chronic kidney disease Constipation K59.00 (7) Hypertension Hypertension type: secondary to other renal disorders Qualified Code(s): I15.1 - Hypertension secondary to other renal disorders; N28.89 - Other specified disorders of kidney and ureter (8) Anemia Anemia type: due to chronic kidney disease
[2022-07-15 08:13] LABS: Albumin Level 2.7 gm/dl (3.4-5.0); BUN Creatinine Ratio 15.6 (10-20); Calcium 9.8 mg/dl (8.5-10.1); Creatinine Clr Calc Pharmacy 36.8 ml/min; Est GFR (African American) 50.6 ml/min; Est GFR (Non-African American) 43.6 ml/min; Phosphorus 1.9 mg/dl (2.5-4.9); Potassium 4.2 mmol/L (3.5-5.1)
[2022-07-15] MEDS: INSULIN ASPART PER UNIT SC SCH ×4 (08:31→20:35)
[2022-07-15] MEDS: MYCOPHENOLATE MOFETIL 250 MG CAP PO SCH ×2 (08:57→20:50)
[2022-07-15] MEDS: ENTECAVIR 0.5 MG PO SCH (08:57)
[2022-07-15] MEDS: CINACALCET HCL 30 MG TAB PO SCH (08:58)
[2022-07-15] MEDS: PANTOprazole 40 MG TAB PO SCH (08:58)
[2022-07-15] MEDS: carvediloL 3.125 MG TAB PO SCH ×2 (08:59→20:50)
[2022-07-15] MEDS: ASPIRIN 81 MG CHEW PO SCH (08:59)
[2022-07-15] MEDS: HEPARIN SOD 5,000 UNIT/0.5 ML VIAL SQ SCH (09:00)
--- NOTE | 2022-07-15 09:51 | Nephrology Progress Note ---
Date of Service July 15, 2022 Assessment & Plan (1) MOOKIE (acute kidney injury): (2) Hypercalcemia: (3) Acute pyelonephritis: (4) Anemia: (5) Hyponatremia: (6) Immunocompromised state: (7) Renal transplant recipient: Plan 67-year-old male with history of renal transplant with decent allograft function, admitted with sepsis with possible pyelonephritis, vomiting, MOOKIE and multiple electrolyte abnormality including hyponatremia and hypercalcemia. MOOKIE and electrolyte abnormality setting of volume depletion hypercalcemia, unlikely any acute rejection as his been getting his immunosuppressive regularly and renal function already started to improve with IV hydration. Clinically doing much better, appetite improved. Nausea resolved. Has been afebrile. Blood pressure stable. Renal function continues to improve, creatinine down to 1.6, electrolyte improving. -- DC IV fluid as PO intake improved. -- Sensipar 60 mg daily, CellCept -- CBC, renal panel in am Admission and Anticipated Discharge Date Admission Date: July 13, 2022 Leonardo Bennett was seen and evaluated this morning. Overall he was feeling well, reports improvement in appetite and he had full breakfast this morning. Has been voiding normally. Remained afebrile overnight. Renal function started to improve, creatinine down to 1.6, calcium 9.8. Leukocytosis resolved. Review of Systems Review of Systems: A detailed review of system was otherwise unremarkable. Physical Exam Constitutional: WD/WN, vitals as above no acute distress Respiratory: Auscultation: lungs clear to auscultation bilaterally Cardiovascular: RRR, no murmur, no edema Skin: no rashes Neurologic: no focal motor deficits Psychiatric: Orientation: alert and oriented x 3 Affect: euthymic affect Results & Data ([facility]) Vital Signs (Past 12 Hours) Vital Signs Temp Pulse Pulse Resp BP Pulse Ox O2 Del Method 07/15/22 08:06 36.5 C 60 17 129/63 97 Room Air 07/15/22 04:00 36.4 C L 56 L 14 111/55 L 94 Room Air 07/14/22 22:10 59 L 07/14/22 23:01 36.8 C 58 L 15 97 Room Air PG Care Time/CCT Total # of Minutes Spent Total Time Spent with Patient: Total time spent is greater than 50% in coordination of care (as documented) at patient's floor/unit and/or counseling patient: Coding Level of Care Code 25827 SUB INP/OBS CARE 50MIN Diagnoses MOOKIE (acute kidney injury) N17.9 Hypercalcemia E83.52 Acute pyelonephritis N10 Anemia D64.9 Anemia type: due to chronic kidney disease Hyponatremia E87.1 Immunocompromised state D84.9 Renal transplant recipient Z94.0 (4) Anemia Anemia type: due to chronic kidney disease
--- NOTE | 2022-07-15 12:24 | Pharmacy Report ---
Pharmacy Glycemic Short Note 2 - Date of Service July 15, 2022 - Glycemic Short BSG Results (Last 24 hours): 07/14/22 07/14/22 07/15/22 16:49 20:27 05:37 Glucose 107 H POC Glucose 89 119 H 07/15/22 07/15/22 07:59 11:45 Glucose POC Glucose 99 128 H OUTPATIENT ANTIDIABETIC REGIMEN: * Lantus 24 units qPM * Novolog 12 units TIDM * Metformin * HbA1C= 6.9% (07/14/22) ASSESSMENT: 07/15/22 * Blood sugars well controlled, fasting 99mg/dl, will decrease basal slightly to prevent hypoglycemia. NovoLog parameters appropriate at this time. * Clinically improving, appetite increased, IV fluids and meropenem DC'd, now only on Ceftriaxone IV. 07/14/22 * Mr Cerda is a 67 y/o M with a PMH of T2DM who presents with MOOKIE and UTI. * BSGs yesterday were 92-145 mg/dL. * Patient received Lantus 12 units last night (half of his home dose). Fasting today is 131 mg/dL so will continue Lantus 12 units nightly. * Will do weight-based stress of 2-3 Novolog. PLAN FOR INPATIENT GLYCEMIC CONTROL: * Hold outpatient oral diabetes medications * Basal insulin * Lantus 10 units SQ HS * Bolus insulin * NovoLog per scale ACHS or Q6hrs while NPO * Goal Range: Low 110 mg/dL - High 140 mg/dL * Correction Factor: 35 mg/dL/unit * Nutritional / Prandial insulin per carb ratio of 1 unit per 12 grams CHO consumed
[2022-07-15] MEDS: cefTRIAXone SODIUM 2,000 MG in DEXTROSE 5% 50 ML IV SCH (13:48)
[2022-07-15] MEDS ORDERED: DAPTOmycin 250 MG in SYRINGE 0 ML IV SCH (15:30)
--- NOTE | 2022-07-15 16:39 | Urology Consultation ---
Date of Consultation July 15, 2022 Assessment & Plan (1) Acute pyelonephritis: (2) Renal transplant recipient: (3) Right distal ureteral calculus: Plan 67-year-old male with history of renal transplant in January 2021 ([facility]) admitted for acute pyelonephritis, hypercalcemia and MOOKIE. Urology is consulted for evaluation of recurrent UTI. Patient is currently afebrile and hemodynamically stable. Lab work reviewedcreatinine 1.60, no leukocytosis. Urine culture grew out E. coli, sensitive to ceftriaxone - continue. CT A/P reviewed personally and with Dr. David and demonstrates diffusely heterogeneous edematous appearance of the right lower quadrant transplant kidney with perinephric inflammatory stranding. Atrophy of the [place] kidneys with nonobstructing left renal calculi and distal right ureteral calculus. Prostatomegaly. Patient's nephrolithiasis and right ureteral calculus of [place] kidney in particular may be nidus of infection/recurring infection. Recommend consideration of right ureteral stent placement while inpatient. He is not NPO at present time. No acute intervention today. Patient is currently afebrile and hemodynamically stable. Recommend NPO at [place] for reassessment. Will also need to discuss with his transplant team at [facility]. Continue supportive care and antibiotics. Patient noted to have prostatomegaly on imaging. Bladder scan on 07/13 was low. Continue to monitor emptying with bladder scan/post void residual prn. Continue Tamsulosin. We discussed cystoscopy procedure for further evaluation of bladder outlet obstruction. This can be done at time of potential stent placement as above vs outpatient depending on course. will follow. Supervising Physician Co-Signing Physician Notes I have discussed Mr. Cerda's case with ADRIÁN Ponce and agree with the above documentation. Persistent UTI could be related to obstruction of the upper tract of his [place] kidneys by the ureteral stone. It is unclear how much urine he makes, therefore I would not necessarily expect to see hydronephrosis behind the stone. Maximal decompression with ureteral stent placement may help clear the infection. We could also consider bilateral selective cultures of the upper tracts. If that turns out there is persistent infection in his [place] kidneys, there may be a role for future nephrectomy. For now, we will ten tatively plan on ureteral stent placement. History of Present Illness Attending Physician: Abby Johnston, DO History of Present Illness This is a 67-year-old male with past medical history of renal transplant in January 2021 ([facility]) who was referred by his mid level developer to the emergency department on 07/13/2022 due to elevated calcium levels as well as several day history of generalized weakness, low appetite, nausea and vomiting. He was admitted for acute pyelonephritis, hypercalcemia and MOOKIE. Urology is consulted for evaluation of recurrent UTI and sepsis. Of note, he was hospitalized with urosepsis in March 2022. Urine and blood cultures grew E. coli. He had a urine culture on 05/28/2022, which grew out 60 k cfu of E. coli. He was treated outpatient with course of PO ciprofloxacin, intermediate sensitivity noted on culture. Chart review: Afebrile, last febrile on 07/13 (Tmax 38.4). Lab work reviewed -creatinine 1.60, WBC 7.47, hemoglobin 9.6. Urinalysis 07/13 -2+ protein, 2+ glucose, 2+ blood, 3+ LE, >30 WBC, 0-4 RBC, 20- 30 epithelials, 4+ bacteria Urine culture 07/13E. coli Currently on IV ceftriaxone Bladder scan on 07/13 - mL Imaging: CT A/P 07/13/22 - IMPRESSION: 1. Diffusely heterogeneous edematous appearance of the right lower quadrant transplant kidney with perinephric inflammatory stranding. Findings are compatible with a nonspecific infectious or inflammatory process versus renal transplant rejection. Correlation with laboratory analysis is needed. 2. Atrophy of the [place] kidneys with nonobstructing left renal calculi and distal right ureteral calculus. 3. Prostamegaly with evidence of chronic bladder outlet obstruction. 4. No bowel obstruction or bowel wall thickening. 5. Additional findings as above. Patient seen and examined at bedside this afternoon. present. Patient is awake, alert and resting in bed in no apparent distress. Reports he is feeling better since arrival. No abdominal, flank, or suprapubic pain. Voiding spontaneously. No dysuria or hematuria. Occasional feeling of incomplete empyting at home, post void dribbling. He endorses some mild LUTS at baseline including occasional hesitancy, frequency and urgency. History of kidney stones. Reports surgical intervention approximately 6 years ago. No family history of malignancy. Allergies Allergy/AdvReac Type Severity Reaction Status Date / Time Penicillins Allergy Mild Rash Verified 07/03/22 10:10 Home Medications Medication Instructions Recorded Confirmed Type aspirin 81 mg chewable tablet 1 tab PO DAILY #30 tabs 11/23/18 07/13/22 History blood-glucose meter (OneTouch #1 ea 08/13/20 07/03/22 Rx Verio Meter) carvedilol 3.125 mg tablet (Coreg) 3.125 mg PO BID #60 tabs 10/03/20 07/13/22 Rx lancets (OneTouch UltraSoft #200 ea 02/27/21 07/03/22 Rx Lancets) blood sugar diagnostic (OneTouch #200 strips 12/31/21 07/03/22 Rx Verio test strips) acetaminophen 500 mg tablet 500 mg PO Q8H PRN Pain or fever 01/30/22 07/13/22 History (Tylenol Extra Strength) belatacept 250 mg intravenous IV 01/30/22 07/03/22 History solution (Nulojix) insulin aspart U-100 100 unit/mL 12 unit subcut TID 01/30/22 07/13/22 History subcutaneous cartridge (Novolog PenFill U-100 Insulin aspart) insulin glargine 100 unit/mL (3 24 unit subcut QPM 01/30/22 07/13/22 History mL) subcutaneous pen (Basaglar KwikPen U-100 Insulin) metformin 500 mg tablet 500 mg PO BID 01/30/22 07/13/22 History atorvastatin 10 mg tablet 10 mg PO DAILY #90 tabs 03/25/22 07/13/22 Rx entecavir 0.5 mg tablet 0.5 mg PO DAILY 05/01/22 07/13/22 History mycophenolate mofetil 250 mg 1,000 mg PO BID 05/01/22 07/13/22 History capsule pantoprazole 40 mg tablet,delayed 40 mg PO DAILY #90 tabs 07/07/22 07/13/22 Rx release pen needle, diabetic 32 gauge x #100 ea 07/07/22 Rx 5/32" (BD Jackie 2nd Gen Pen Needle) cinacalcet 30 mg tablet 60 mg PO DAILY 07/13/22 07/13/22 History Patient History Medical History Chronic hepatitis B Demand ischemia Diabetes mellitus, type 2 History of kidney stones Hypercalcemia Hyperlipidemia Hypertension Positive PPD Psoriasis Psoriatic arthritis Tubulovillous adenoma Surgical History A-V fistula LEFT History of colonoscopy 12/2020 repeat 3 yrs History of esophagogastroduodenoscopy (EGD) History of lithotripsy Renal transplant recipient Family History Father Myocardial infarction Family history of diabetes mellitus Other No family history of adverse response to anesthesia Denies family history of Ovarian cancer Prostate cancer Breast cancer Colorectal cancer Lung disease Social History Smoking Status: Never smoker Tobacco Type: Cigarettes Second Hand Exposure: No; Hx Alcohol Use: No Hx Substance Use: No Preferred Language: Beninese Communication Ability: Effective Visual Impairment: Limited Hearing Ability: Normal Retail Salesworker Required: No Beliefs That Will Affect Care: None marital status: Current Living Situation: Spouse Current Living Situation Comment: AND SON current occupational status: employed current occupation: SELF EMPLOYED How many Children do You have: 2 Other Information That Helps Us Care for You: No Feels Safe at Home: Yes Safety Concerns: Feels Safe At This Time Childhood Exposure to Second-Hand Smoke: No caffeine: Yes Dental Care, Regularly: Yes Physical Activity Frequency: 1-2 Times per Week Seatbelt Use: always Sunscreen Use: Yes Assistive Devices: None Review of Systems Review of Systems: All systems reviewed & are unremarkable except as noted in HPI & below Physical Exam Constitutional: well developed and well nourished; no acute distress Eyes: no scleral abnormality Neck: trachea midline Respiratory: normal respiratory effort; no respiratory distress and no labored breathing Cardiovascular: Extremities: no pedal edema Gastrointestinal (Abdomen): Inspection/Auscultation: abdomen normal to inspection; abdomen not distended Percussion/Palpation: abdomen soft; abdomen nontender Musculoskeletal: Head/Neck/Chest: normocephalic and head atraumatic Skin: No rashes noted to exposed skin Neurologic: moves all extremities and awake Psychiatric: Orientation: alert and oriented x 3 Genitourinary: no CVA tenderness Results & Data ([facility]) Vital Signs (Past 12 Hours) Vital Signs Temp Pulse Pulse Resp BP Pulse Ox O2 Del Method 07/15/22 15:26 57 L 07/15/22 11:29 36.3 C L 55 L 18 131/72 99 Room Air 07/15/22 08:06 36.5 C 60 17 129/63 97 Room Air PG Care Time/CCT Total # of Minutes Spent Total Time Spent with Patient: Total time spent is greater than 50% in coordination of care (as documented) at patient's floor/unit and/or counseling patient: Coding Level of Care Code 37548 INT INP/OBS CARE 2/55MIN Diagnoses Acute pyelonephritis N10 Renal transplant recipient Z94.0 Right distal ureteral calculus N20.1
[2022-07-15] MEDS: TAMSULOSIN HCL 0.4 MG CAP PO SCH (20:50)
[2022-07-15] MEDS ORDERED: LANTUS PER UNIT CHARGE SQ SCH (21:00)
[2022-07-16 06:31] LABS: Basophils # (auto) 0.04 K/uL (0-0.2); Basophils % (auto) 0.8 %; Eosinophils # (auto) 0.07 K/uL (0-0.50); Eosinophils % (auto) 1.3 %; Hematocrit (blood only) 30.8 % (42.0-52.0); Hemoglobin 10.1 g/dl (14.0-18.0); Immature Granulocytes # (auto) 0.05 K/uL (0.01-0.20); Lymphocytes # (auto) 0.71 K/uL (1.2-3.4); Lymphocytes % (auto) 13.6 %; Mean Corpuscular Hemoglobin 29.4 pg (25.0-34.0); Mean Corpuscular Hgb Conc 32.8 g/dL (32.0-36.0); Mean Corpuscular Volume 89.5 fL (80.0-100.0); Monocytes # (auto) 0.96 K/uL (0.11-0.59); Monocytes % (auto) 18.4 %; Neutrophils # (auto) 3.38 K/uL (1.40-6.50); Neutrophils % (auto) 64.9 %; Platelet Count 264 K/uL (130-400); RDW Coefficient of Variation 13.7 % (11.5-14.5); RDW Standard Deviation 44.7 fL (36.4-46.3); Red Blood Count 3.44 M/uL (4.70-6.10); White Blood Count 5.21 K/ul (4.8-10.8)
[2022-07-16 06:55] LABS: Albumin Level 2.7 gm/dl (3.4-5.0); BUN Creatinine Ratio 12.6 (10-20); Calcium 9.8 mg/dl (8.5-10.1); Creatinine Clr Calc Pharmacy 40.5 ml/min; Est GFR (African American) 54.2 ml/min; Est GFR (Non-African American) 46.8 ml/min; Phosphorus 2.5 mg/dl (2.5-4.9)
--- NOTE | 2022-07-16 07:07 | Hospitalist Progress Note ---
Date of Service July 16, 2022 Assessment & Plan (1) Acute pyelonephritis: Plan: Presented with fatigue, vomiting x1 week and found on abdominal imaging to have evidence of possible pyelonephritis in RLQ transplanted kidney. UA infected appearing, UCx collected with evidence of >100k CFU GNR (though after first ceftriaxone dose). Lactate 1.6 on admission. Received 2L NSS in ER followed by NSS at 125cc/hr, discontinued today. Started on dapto/katie given immunocompromised status -> transitioned to ceftriaxone as UCx growing >100,000 CFU E. coli sensitive to such, will continue. Did have some complaints of incomplete emptying of bladder, continue tamsulosin. Urology consulted 07/15 as patient has had recurrent UTI requiring hospitalization -> found to have urethral stricture on cystoscopy which was dilated, and also had right ureteral stent placed. Follow up Urology outpatient. Also spoke with patient's transplant surgeon today, no other medical change recommendations regarding immunosuppressants. (2) MOOKIE (acute kidney injury): Plan: Creatinine 2.18 -> 1.51 with IV fluids since admission. Suspect due to pyelonephritis/renal inflammation in only functional kidney in addition to prerenal causes from poor appetite/vomiting at home x1 week. Patient having good oral intake and good return of kidney function, no further IV fluids. (3) Hypercalcemia: Plan: Ca 12.9 -> 9.8 with IVF and cinacalcet 60mg daily. Daily BMP. SPEP and UPEP pending. Nephrology consulted and appreciate recommendations. (4) Renal transplant recipient: Plan: Nephrology consulted and appreciate recommendations, care plan reviewed with Dr. Christina. Continue CellCept. Not due for belatacept until early July. (5) Hyponatremia: Plan: Intravascularly dry on admission, with Na 126 -> 133 with IVF as above, d/c IVF and daily BMP. (6) Diabetes mellitus, type 2: Plan: Hemoglobin A1c 6.9% on 07/14. Holding metformin while admitted in favor of Lantus 24 units HS and SSI. (7) Hypertension: Plan: History of, BP normotensive at this time. Continue home Coreg. (8) Anemia: Plan: History of anemia of chronic disease; Hgb near baseline at 10.1 at this time (as high as 12 on admission however was intravascularly dry at that time). (9) Constipation: Plan: Patient having regular BMs on bowel regimen, will continue. Plan VTE prophylaxis - heparin 5000 units SQ twice daily Diet - heart healthy, T2DM Disposition - PCU FULL CODE Admission and Anticipated Discharge Date Admission Date: July 13, 2022 Subjective Donald is doing well this morning. He denies abdominal pain, nausea, vomiting, chest pain, SOB. Review of Systems Review of Systems: All systems reviewed & are unremarkable except as noted in Subjective Physical Exam Constitutional: WD/WN, vitals as above Respiratory: normal respiratory effort, lungs clear to auscultation Cardiovascular: RRR, no murmur, no edema Gastrointestinal (Abdomen): normal bowel sounds, soft, nontender, no hepatosplenomegaly Skin: no rashes, warm and dry Psychiatric: A+Ox3, euthymic affect Results & Data Results & Data ([facility]) Vital Signs (Past 12 Hours) Vital Signs Temp Pulse Pulse Resp BP Pulse Ox O2 Del Method 07/15/22 19:45 Room Air 07/15/22 23:10 57 L 07/15/22 23:00 36.5 C 56 L 18 165/73 H 100 Room Air 07/15/22 19:33 36.6 C 59 L 18 139/66 99 Room Air PG Care Time/CCT Total # of Minutes Spent Total Time Spent with Patient: Total time spent is greater than 50% in coordination of care (as documented) at patient's floor/unit and/or counseling patient: Coding Level of Care Code 16497 SUB INP/OBS CARE 3/50MIN Diagnoses Acute pyelonephritis N10 MOOKIE (acute kidney injury) N17.9 Hypercalcemia E83.52 Renal transplant recipient Z94.0 Hyponatremia E87.1 Diabetes mellitus, type 2 E11.9 Hypertension I15.1; N28.89 Hypertension type: secondary to other renal disorders Anemia D64.9 Anemia type: due to chronic kidney disease Constipation K59.00 (7) Hypertension Hypertension type: secondary to other renal disorders Qualified Code(s): I15.1 - Hypertension secondary to other renal disorders; N28.89 - Other specified disorders of kidney and ureter (8) Anemia Anemia type: due to chronic kidney disease
[2022-07-16] MEDS: ASPIRIN 81 MG CHEW PO SCH (08:20)
[2022-07-16] MEDS: CINACALCET HCL 30 MG TAB PO SCH (08:21)
[2022-07-16] MEDS: PANTOprazole 40 MG TAB PO SCH ×2 (08:21→16:06)
[2022-07-16] MEDS: MYCOPHENOLATE MOFETIL 250 MG CAP PO SCH ×2 (08:22→20:13)
[2022-07-16] MEDS: ENTECAVIR 0.5 MG PO SCH (08:23)
[2022-07-16] MEDS: carvediloL 3.125 MG TAB PO SCH ×2 (08:24→20:13)
[2022-07-16] MEDS: INSULIN ASPART PER UNIT SC SCH ×4 (08:30→20:37)
[2022-07-16 08:36] LABS: Albumin 2.3 g/dL (3.8-4.8); Alpha 1 Globulin 0.5 g/dL (0.2-0.3); Alpha 2 Globulin 1.2 g/dL (0.5-0.9); Beta-1-Globulin 0.2 g/dL (0.4-0.6); Beta-2-Globulin 0.3 g/dL (0.2-0.5); Free Kappa 35.9 mg/L (3.3-19.4); Free Kappa/Lambda Ratio 0.79 (0.26-1.65); Free Lambda 45.2 mg/L (5.7-26.3); Gamma Globulin 0.9 g/dL (0.8-1.7); Monoclonal Protein Band 1 0.6 g/dL (NONE DETECTED); Monoclonal Protein Band 2 DNR g/dL (NONE DETECTED); Monoclonal Protein Band 3 DNR g/dL (NONE DETECTED); Total Protein 5.4 g/dL (6.1-8.1)
--- NOTE | 2022-07-16 09:10 | Urology Progress Note ---
Date of Service July 16, 2022 Assessment & Plan (1) Right distal ureteral calculus: (2) UTI (urinary tract infection), bacterial: Plan 67-year-old male who is status post renal transplant. He has been doing with recurrent UTIs. CT scan showed a distal right ureteral calculus in his [place] kidney. I had a long conversation with him today about his UTIs and his right ureteral calculus in his [place] kidney. I explained that this could potentially be a nidus for infection but it is impossible to tell. The only way to really know if it is is to place a stent today and ultimately remove that stone and see if he continues to get infections. He does not have any obstruction in that right kidney and he likely does not make much to any urine, but again there is no way to definitively tell that. His other option would be to have no stent placed but he may be at risk for further infections. I explained that we would only place a stent today and he would need to come back as an outpatient for stone removal. He initially was hesitant but then ultimately agreed. Plan for cystoscopy, right retrograde pyelogram right ureteral stent placement and [place] kidney Continue antibiotics Admission and Anticipated Discharge Date Admission Date: July 13, 2022 Subjective 67-year-old male with a history of renal transplant recurrent UTIs who is currently admitted. CT scan showed a right distal ureteral calculus in his [place] kidney. Unclear if this is the nidus for infection. Urine cultures currently growing out E. coli. He is on ceftriaxone. Review of Systems Review of Systems: 14 point review of systems negative outside of what is listed above in HPI Physical Exam Physical Exam: General: Alert and oriented, no acute distress HEENT: Normocephalic, mucous membranes moist Pulmonary: Nonlabored respirations Abdomen: Nondistended Extremities: Moves all 4 spontaneously Neuro: No gross deficits Skin: Warm, dry, no rashes noted Results & Data ([facility]) Vital Signs (Past 12 Hours) Vital Signs Temp Pulse Pulse Resp BP Pulse Ox O2 Del Method 07/16/22 08:04 36.6 C 65 20 129/72 100 Room Air 07/15/22 23:10 57 L 07/15/22 23:00 36.5 C 56 L 18 165/73 H 100 Room Air PG Care Time/CCT Total # of Minutes Spent Total Time Spent with Patient: Total time spent is greater than 50% in coordination of care (as documented) at patient's floor/unit and/or counseling patient: Coding Level of Care Code 88624 SUB INP/OBS CARE 2MIN Diagnoses Right distal ureteral calculus N20.1 UTI (urinary tract infection), bacterial N39.0; A49.9
[2022-07-16 09:50] LABS: Creatinine Ur 54 mg/dL (20-320); Protein, Urine Random 53 mg/dL (5-25); Ur Protein/Creat Ratio mg/g 981 mg/g creat (25-148); Urine Abnormal Protein Band 1 DNR mg/dL (NONE DETECTED); Urine Abnormal Protein Band 2 DNR mg/dL (NONE DETECTED); Urine Abnormal Protein Band 3 DNR mg/dL (NONE DETECTED); Urine Protein/Creatinine Ratio 0.981 (0.025-0.148)
[2022-07-16] MEDS ORDERED: DIATRIZOATE MEGLUMINE 30% 100ML VIAL INSTIL PRN (11:16)
--- NOTE | 2022-07-16 11:37 | Anesthesiology Consultation ---
Date of Service July 16, 2022 Assessment & Plan (1) Encounter for pre-operative examination: History Surgery Operation Date: 07/16/22 07:00 Proposed Procedures p Cystoscopy, Right Retrograde, Right Stent Insertion - Facundo Monterroso MD Height/Weight Height: 5 ft 7 in Weight: 61.2 kg Allergies Allergy/AdvReac Type Severity Reaction Status Date / Time Penicillins Allergy Mild Rash Verified 07/03/22 10:10 Medications Home Medications Medication Instructions Recorded Confirmed Last Taken aspirin 81 mg chewable tablet 1 tab PO DAILY #30 tabs 11/23/18 07/13/22 07/13/22 blood-glucose meter (OneTouch #1 ea 08/13/20 07/03/22 Unknown Verio Meter) carvedilol 3.125 mg tablet (Coreg) 3.125 mg PO BID #60 tabs 10/03/20 07/13/22 07/13/22 lancets (OneTouch UltraSoft #200 ea 02/27/21 07/03/22 Unknown Lancets) blood sugar diagnostic (OneTouch #200 strips 12/31/21 07/03/22 Unknown Verio test strips) acetaminophen 500 mg tablet 500 mg PO Q8H PRN Pain or fever 01/30/22 07/13/22 Unknown (Tylenol Extra Strength) belatacept 250 mg intravenous IV 01/30/22 07/03/22 1 Week Ago solution (Nulojix) ~07/06/22 insulin aspart U-100 100 unit/mL 12 unit subcut TID 01/30/22 07/13/22 07/13/22 subcutaneous cartridge (Novolog PenFill U-100 Insulin aspart) insulin glargine 100 unit/mL (3 24 unit subcut QPM 01/30/22 07/13/22 07/11/22 mL) subcutaneous pen (Basaglar KwikPen U-100 Insulin) metformin 500 mg tablet 500 mg PO BID 01/30/22 07/13/22 07/13/22 atorvastatin 10 mg tablet 10 mg PO DAILY #90 tabs 03/25/22 07/13/22 07/13/22 entecavir 0.5 mg tablet 0.5 mg PO DAILY 05/01/22 07/13/22 07/13/22 mycophenolate mofetil 250 mg 1,000 mg PO BID 1207/13/22 07/13/22 capsule pantoprazole 40 mg tablet,delayed 40 mg PO DAILY #90 tabs 07/07/22 07/13/22 0 07/13/22 release pen needle, diabetic 32 gauge x #100 ea 07/07/22 Unknown " (BD Jackie 2nd Gen Pen Needle) cinacalcet 30 mg tablet 60 mg PO DAILY 07/13/22 07/13/22 Unknown Active Medications Generic Name Dose Route Start Last Admin Trade Name Gold PRN Reason Stop Dose Admin Aspirin 81 mg 07/14/22 09:00 07/16/22 08:20 Aspirin 81 Mg Chew PO 08/13/22 08:59 Not Given DAILY NEHA Bisacodyl 5 mg 07/14/22 08:34 07/14/22 09:00 Bisacodyl 5 Mg Tabec PO 08/13/22 08:33 5 mg DAILY PRN Administration Constipation Carvedilol 3.125 mg 07/13/22 21:00 07/16/22 08:24 Carvedilol 3.125 Mg Tab PO 08/12/22 20:59 3.125 mg BID NEHA Administration Cinacalcet 60 mg 07/13/22 17:16 07/16/22 08:21 Cinacalcet Hcl 30 Mg Tab PO 08/12/22 17:15 60 mg DAILY COUNTS INCLUDE 234 BEDS AT THE [facility] Administration Heparin Sodium (Porcine) 5,000 units 07/14/22 21:00 07/15/22 09:00 Heparin Sod 5,000 Unit/0.5 Ml Vial SQ 08/13/22 20:59 Not Given Q12 COUNTS INCLUDE 234 BEDS AT THE [facility] Ceftriaxone Sodium 2,000 mg/ 70 mls @ 140 mls/hr 07/15/22 14:00 07/15/22 14:33 Dextrose IV 08/12/22 13:59 Infused DAILY@1400 COUNTS INCLUDE 234 BEDS AT THE [facility] Infusion Insulin Aspart 0 units 07/13/22 17:16 07/16/22 08:30 Insulin Aspart Per Unit SC 08/12/22 17:15 Not Given ACHS COUNTS INCLUDE 234 BEDS AT THE [facility] Insulin Glargine 10 units 07/15/22 21:00 07/15/22 20:51 Lantus Per Unit Charge SQ 08/14/22 20:59 10 units QPM NEHA Administration Mycophenolate Mofetil 1,000 mg 07/13/22 21:00 07/16/22 08:22 Mycophenolate Mofetil 250 Mg Cap PO 08/12/22 20:59 1,000 mg BID NEHA Administration Entecavir 0.5mg Tab- 1 each 07/14/22 13:30 07/16/22 08:23 Non-Formulary PO 08/13/22 13:29 1 tab Patient's Own Med QAM NEHA Administration Ondansetron HCl 4 mg 07/13/22 17:16 07/14/22 11:44 Ondansetron Inj 2 Mg/Ml 2 Ml Vial IV 08/12/22 17:15 4 mg Q6H PRN Administration Nausea Pantoprazole Sodium 40 mg 07/14/22 09:00 07/16/22 08:21 Pantoprazole 40 Mg Tab PO 08/13/22 08:59 Not Given DAILY NEHA Tamsulosin HCl 0.4 mg 07/14/22 21:00 07/15/22 20:50 Tamsulosin Hcl 0.4 Mg Cap PO 08/13/22 20:59 0.4 mg HS NEHA Administration Past Medical History Medical History Chronic hepatitis B Demand ischemia Diabetes mellitus, type 2 History of kidney stones Hypercalcemia Hyperlipidemia Hypertension Positive PPD Psoriasis Psoriatic arthritis Tubulovillous adenoma Past Family History Family History Father Myocardial infarction Family history of diabetes mellitus Other No family history of adverse response to anesthesia Denies family history of Ovarian cancer Prostate cancer Breast cancer Colorectal cancer Lung disease Past Surgical History Surgical History A-V fistula LEFT History of colonoscopy 12/2020 repeat 3 yrs History of esophagogastroduodenoscopy (EGD) History of lithotripsy Renal transplant recipient Social History Smoking Status: Never smoker tobacco type: cigarettes Hx Alcohol Use: No Hx Substance Use: No substance use type: does not use Physical Exam Vital Signs Last Vital Signs Temp 36.6 C 07/16/22 08:04 Pulse 65 07/16/22 08:04 Resp 20 07/16/22 08:04 BP 129/72 07/16/22 08:04 Pulse Ox 100 07/16/22 08:04 O2 Del Method Room Air 07/16/22 08:04 Testing Laboratory Results 07/16/22 05:49 07/16/22 05:49 PT 11.8 Seconds (9.0-12.0) 07/13/22 11:11 INR 1.1 (0.9-1.1) 07/13/22 11:11 APTT 25.4 Seconds (21.0-31.0) 07/13/22 11:11 Hemoglobin A1c 6.9 % (4.5-5.6) H 07/14/22 05:43 Urine Color Yellow 07/13/22 11:15 Urine Appearance Turbid (Clear) A 07/13/22 11:15 Urine pH 5.0 (4.5-7.5) 07/13/22 11:15 Ur Specific [place] 1.015 (1.000-1.030) 07/13/22 11:15 Urine Protein 2+ (Negative) H 07/13/22 11:15 Urine Glucose (UA) 2+ (Negative) H 07/13/22 11:15 Urine Ketones Negative (Negative) 07/13/22 11:15 Urine Nitrite Negative (Negative) 07/13/22 11:15 Ur Leukocyte Esterase 3+ (Negative) H 07/13/22 11:15 Urine WBC (Auto) >30 /hpf (0-5) H 07/13/22 11:15 Urine RBC (Auto) 0-4 /hpf (0-4) 07/13/22 11:15 U Hyaline Cast (Auto) 1-5 /lpf (0-5) 07/13/22 11:15 U Epithel Cells (Auto) 20-30 /lpf (0-5) H 07/13/22 11:15 Urine Bacteria (Auto) 4+ (Negative) H 07/13/22 11:15 07/13/22 15:19 Aerobic Blood Culture - Preliminary Blood No growth in Aerobic bottle after 48 hours. Anaerobic Blood Culture - Final 07/13/22 14:43 Aerobic Blood Culture - Preliminary Blood No growth in Aerobic bottle after 48 hours. Anaerobic Blood Culture - Preliminary No growth in Anaerobic bottle after 48 hours. 07/13/22 11:15 Urine Culture - Final Urine,Clean Catch Escherichia coli 07/16/22 07:22 POC Glucose 110 H
--- NOTE | 2022-07-16 11:49 | Nephrology Progress Note ---
Date of Service July 16, 2022 Assessment & Plan (1) MOOKIE (acute kidney injury): (2) Hypercalcemia: (3) Acute pyelonephritis: (4) Anemia: (5) Hyponatremia: (6) Immunocompromised state: (7) Renal transplant recipient: Plan 67-year-old male with history of renal transplant with decent allograft function, admitted with sepsis with possible pyelonephritis, vomiting, MOOKIE and multiple electrolyte abnormality including hyponatremia and hypercalcemia. MOOKIE and electrolyte abnormality setting of volume depletion hypercalcemia, unlikely any acute rejection as his been getting his immunosuppressive regularly and renal function already started to improve with IV hydration. Clinically doing much better, appetite improved. Nausea resolved. Has been afebrile. Blood pressure stable. Renal function continues to improve, creatinine down to 1.5, electrolyte improved. Plan for cystoscopy this morning for right distal ureteral calculus and [place] kidney, a possible source for recurrent UTI. -- Sensipar 60 mg daily, CellCept -- CBC, renal panel in am -- on ceftriaxone Admission and Anticipated Discharge Date Admission Date: July 13, 2022 Leonardo Bennett was seen and evaluated this morning. Overall he has been feeling well. Has been voiding normally. Remained afebrile overnight. Renal function started to improve, creatinine down to 1.5, calcium normal. Leukocytosis resolved. NPO for urological procedure. Review of Systems Review of Systems: A detailed review of system was otherwise unremarkable. Physical Exam Constitutional: WD/WN, vitals as above no acute distress Respiratory: Auscultation: lungs clear to auscultation bilaterally Cardiovascular: RRR, no murmur, no edema Skin: no rashes Neurologic: no focal motor deficits Psychiatric: Orientation: alert and oriented x 3 Affect: euthymic affect Results & Data ([facility]) Vital Signs (Past 12 Hours) Vital Signs Temp Pulse Pulse Resp BP Pulse Ox O2 Del Method 07/16/22 07:00 57 L 07/16/22 08:04 36.6 C 65 20 129/72 100 Room Air PG Care Time/CCT Total # of Minutes Spent Total Time Spent with Patient: Total time spent is greater than 50% in coordination of care (as documented) at patient's floor/unit and/or counseling patient: Coding Level of Care Code 01791 SUB INP/OBS CARE 3/50MIN Diagnoses MOOKIE (acute kidney injury) N17.9 Hypercalcemia E83.52 Acute pyelonephritis N10 Anemia D64.9 Anemia type: due to chronic kidney disease Hyponatremia E87.1 Immunocompromised state D84.9 Renal transplant recipient Z94.0 (4) Anemia Anemia type: due to chronic kidney disease
[2022-07-16] MEDS: cefTRIAXone SODIUM 2,000 MG in DEXTROSE 5% 50 ML IV SCH ×2 (13:01→14:00)
[2022-07-16] MEDS ORDERED: MIDAZOLAM HCL 1 MG/ML 2ML VIAL ONE (13:27)
[2022-07-16] MEDS ORDERED: PROPOFOL IV EMULSION 10 MG/ML 20 ML VIAL IV ONE ×2 (13:27→14:37)
[2022-07-16] MEDS ORDERED: LIDOCAINE 2% MPF LOCAL 5 ML VIAL INFIL ONE (13:27)
[2022-07-16] MEDS ORDERED: fentaNYL citrate 100 MCG/2 ML VIAL ONE (13:27)
[2022-07-16] MEDS ORDERED: ONDANSETRON INJ 2 MG/ML 2 ML VIAL ONE (13:52)
[2022-07-16] MEDS ORDERED: fentaNYL citrate 100 MCG/2 ML VIAL IV PRN (14:45)
[2022-07-16] MEDS ORDERED: ONDANSETRON INJ 2 MG/ML 2 ML VIAL IV PRN (14:45)
[2022-07-16] MEDS ORDERED: ePHEDrine sulfate 50 MG/ML AMP IV PRN (14:45)
[2022-07-16] MEDS ORDERED: ATROPINE SULFATE 0.1 MG/ML 10ML SYR IV PRN (14:45)
--- NOTE | 2022-07-16 14:54 | Post Operative Brief Note ---
PG Immediate Post Op with CF Date of Surgery July 16, 2022 Pre & Post Diagnosis Operation Date: 07/16/22 07:00 Pre-Op Diagnosis: Right distal ureteral calculus. Post-Op Diagnosis: Right distal ureteral calculus, bulbar urethral stricture I identified the patient and participated in the time-out.: Yes Procedure Operation Date: 07/16/22 07:00 Actual Procedures p Cystoscopy, Urethral Dilation, Right Stent Insertion, Arizmendi Placement.(Right) - Facundo Monterroso MD Surgeon Facundo Monterroso MD Certified Respiratory Therapist None Estimated Blood Loss 10 Findings See Below Dense, 8Fr bulbar urethral stricture. Dilated. Bladder normal. Right stent placed in appropriate position. Distal stone wouldn't allow 5fr to pass so no retrograde shot. Drains Arizmendi Catheter and Other (4.8Fr x 26cm right stent ) Anesthesia Type MAC Complications none
--- NOTE | 2022-07-16 15:18 | Fluoroscopy Report ---
FL KUB CLINICAL HISTORY: RT STENTstatus post placement of a right ureteral stent COMPARISON STUDY: Head CT 07/13/2022 FLUOROSCOPY TIME: 17.1 seconds FLUOROSCOPY IMAGES: 2 EXPOSURE DOSE: 2.24 mGy FINDINGS: A right ureteral stent appears to be in satisfactory positioning. No ureteral calculi are i dentified. A catheter projects over the urinary bladder. IMPRESSION: Fluoroscopic assistance as above. ACT 112: Negative or not required by law. Electronically signed by: Peterson Fisher M.D. 07/16/2022 3:16 PM
--- NOTE | 2022-07-16 15:29 | Anesthesiology Progress Note ---
Date of Service July 16, 2022 Anesthesia Post Procedure Vital Signs Vital Signs: Temp Pulse Pulse Pulse Resp BP Pulse Ox 07/16/22 15:20 67 19 118/69 99 07/16/22 15:10 57 L 16 124/67 100 07/16/22 15:00 36.4 C L 57 L 12 106/59 L 100 07/16/22 12:31 36.6 C 59 L 20 162/69 H 100 07/16/22 12:12 36.3 C L 52 L 18 146/70 H 98 07/16/22 07:00 57 L 07/16/22 08:04 36.6 C 65 20 129/72 100 07/15/22 19:45 07/15/22 23:10 57 L 07/15/22 23:00 36.5 C 56 L 18 165/73 H 100 07/15/22 19:33 36.6 C 59 L 18 139/66 99 07/15/22 16:21 36.8 C 60 17 134/66 99 O2 Del Method O2 Flow Rate 07/16/22 15:20 Oxymask 2 07/16/22 15:10 Oxymask 2 07/16/22 15:00 Oxymask 5 07/16/22 12:31 Room Air 07/16/22 12:12 Room Air 07/16/22 07:00 07/16/22 08:04 Room Air 07/15/22 19:45 Room Air 07/15/22 23:10 07/15/22 23:00 Room Air 07/15/22 19:33 Room Air 07/15/22 16:21 Room Air Transfer of Care Handoff Completed per policy Notes Mental Status: alert / awake / arousable Patient Amnestic to Procedure: Yes Nausea / Vomiting: adequately controlled Pain: adequately controlled Airway Patency, RR, SpO2: stable & adequate BP & HR: stable & adequate Hydration State: stable & adequate Anesthetic Complications: no major complications apparent
--- NOTE | 2022-07-16 15:44 | Operative Report ---
PG Post Operative Report Pre & Post Diagnosis Operation Date: 07/16/22 07:00 Pre-Op Diagnosis: Right distal ureteral calculus. Post-Op Diagnosis: Right distal ureteral calculus. I identified the patient and participated in the time-out.: Yes Procedure Operation Date: 07/16/22 07:00 Actual Procedures p Cystoscopy, Urethral Dilation, Right Stent Insertion, Arizmendi Placement.(Right) - Facundo Monterroso MD Surgeon Facundo Monterroso MD Nurse General Duty None Estimated Blood Loss 5 Findings See Below Specimens None Drains 1. 4.8 Maltese by 26 cm right ureteral stent 2. 18 Maltese chenega tip Arizmendi catheter with 10 cc in balloon Anesthesia Type MAC Complications none Indications 67-year-old male with a history of a renal transplant who has recently developed recurrent UTIs. Recent CT scan showed a nonobstructing right distal ureteral calculus but thought that this may be nidus for infection and so he was consented for stent placement and ultimate stone treatment in the future when he is not infected. Description of Procedure After informed consent was obtained, the patient was transported to the operative suite. MAC anesthesia was induced. They were placed in dorsal lithotomy position and prepped and draped in sterile fashion. They received preoperative ceftriaxone. An appropriate surgical timeout was performed. Attempted to advance a 22 Maltese rigid cystoscope however met resistance in the bulbar urethra where patient was noted to have a somewhat dense 8 Maltese stricture. I attempted to pass a 17 Maltese scope through this as well as a sensor wire but was unsuccessful. I swapped out to a semirigid ureteroscope and was able to advance this into the bladder. I advanced a sensor wire through the scope and backed the scope out. I then sequentially dilated him from 8-20 Maltese with S curved urethral dilators. I then was able to advance a 22 [place]altese rigid cystoscope per urethra into the bladder. The prostate was nonobstructive. The bladder was normal. I turned my attention the right ureteral orifice and attempted to advance a 5 Maltese open-ended catheter but met resistance at likely the distal impacted stone. Advanced a sensor wire past this and confirmed it in the upper pole of the kidney. I was unable to advance the 5 Maltese alongside the wire. Because of this, I opted to place a 4.8 Maltese by 26 cm right ureteral stent. I deployed this with a good proximal coil in the kidney confirmed under fluoroscopy and a good distal coil in the bladder confirmed under direct visualization. I then advanced a sensor wire back through the cystoscope into the bladder and removed the scope. I then advanced an 18 [place]ese chenega tip urethral catheter into the bladder over the wire and remove the wire. Clear urine was draining. I inflated the balloon with 10 cc of sterile water. This concluded the end of the case. All counts correct at the end of the case. I was present scrubbed and actively participated for the entire to the procedure. We will have patient come for Arizmendi catheter removal and void trial on 07/20/2022 with nursing. I will likely then have him see lAanna for a preoperative appointment for treatment of his stone. I attest to the content of the Intraoperative Record and any orders documented therein. Any exceptions are noted below.
[2022-07-16] MEDS: OXYBUTYNIN CHLORIDE 5 MG TAB PO SCH ×2 (17:56→20:13)
[2022-07-16] MEDS: HEPARIN SOD 5,000 UNIT/0.5 ML VIAL SQ SCH (20:03)
[2022-07-16] MEDS: TAMSULOSIN HCL 0.4 MG CAP PO SCH (20:13)
[2022-07-16] MEDS ORDERED: LANTUS PER UNIT CHARGE SQ SCH (21:00)
[2022-07-17 06:40] LABS: Albumin Level 2.9 gm/dl (3.4-5.0); Calcium 9.1 mg/dl (8.5-10.1); Creatinine Clr Calc Pharmacy 38.2 ml/min; Est GFR (African American) 49.4 ml/min; Est GFR (Non-African American) 42.6 ml/min; Phosphorus 2.8 mg/dl (2.5-4.9); Potassium 4.3 mmol/L (3.5-5.1)
[2022-07-17 07:20] LABS: Basophils # (auto) 0.05 K/uL (0-0.2); Basophils % (auto) 0.7 %; Eosinophils # (auto) 0.13 K/uL (0-0.50); Eosinophils % (auto) 1.8 %; Hematocrit (blood only) 30.5 % (42.0-52.0); Hemoglobin 9.7 g/dl (14.0-18.0); Immature Granulocytes # (auto) 0.07 K/uL (0.01-0.20); Lymphocytes # (auto) 0.92 K/uL (1.2-3.4); Mean Corpuscular Hemoglobin 29.4 pg (25.0-34.0); Mean Corpuscular Hgb Conc 31.8 g/dL (32.0-36.0); Mean Corpuscular Volume 92.4 fL (80.0-100.0); Mean Platelet Volume 10.5 fL (9.4-12.4); Monocytes # (auto) 0.88 K/uL (0.11-0.59); Monocytes % (auto) 12.5 %; Neutrophils # (auto) 5.01 K/uL (1.40-6.50); Platelet Count 260 K/uL (130-400); RDW Coefficient of Variation 13.8 % (11.5-14.5); RDW Standard Deviation 46.9 fL (36.4-46.3); White Blood Count 7.06 K/ul (4.8-10.8)
[2022-07-17] MEDS: ENTECAVIR 0.5 MG PO SCH (08:01)
[2022-07-17] MEDS: ASPIRIN 81 MG CHEW PO SCH (08:02)
[2022-07-17] MEDS: CINACALCET HCL 30 MG TAB PO SCH (08:02)
[2022-07-17] MEDS: carvediloL 3.125 MG TAB PO SCH (08:02)
[2022-07-17] MEDS: MYCOPHENOLATE MOFETIL 250 MG CAP PO SCH (08:02)
[2022-07-17] MEDS: OXYBUTYNIN CHLORIDE 5 MG TAB PO SCH ×2 (08:03→15:16)
[2022-07-17] MEDS: PANTOprazole 40 MG TAB PO SCH (08:13)
[2022-07-17] MEDS: HEPARIN SOD 5,000 UNIT/0.5 ML VIAL SQ SCH (08:13)
[2022-07-17] MEDS: INSULIN ASPART PER UNIT SC SCH ×2 (08:22→12:35)
[2022-07-17] MEDS ORDERED: ACETAMINOPHEN 500 MG TAB PO SCH (08:30)
--- NOTE | 2022-07-17 09:08 | Discharge Summary ---
Discharge Summary Date of Service July 17, 2022 Admission HPI Per Admitting Provider Alexander WhyteNed Cerda is a 67-year-old male with renal transplant who presents to the ER on advice of his measurement superintendent due to high calcium levels. Symptoms started last Wednesday over a week ago with vomiting, decreased appetite, fatigue and sleeping all day. Initially got a work-up in the following morning with urine and lab work in the [employer] system by his measurement superintendent which showed elevated calcium but reportedly no evidence of urine infection. Due to him progressively getting worse his measurement superintendent recommended coming to the ER. He denies any specific urinary symptoms such as dysuria, flank pain, change in frequency, color or smell. No fever, but having chills today. No diarrhea, constipation, hemoptysis or hematemesis. No muscle spasms. Regarding his hypercalcemia he was started on Cinacalcet 30 mg daily which was recently increased to 60 mg daily although he has not been taking this as the pharmacy is yet to be able to fill it. He has a significant history of sepsis with E. coli bacteremia in March 2022. He had a recurrence of infection in April with E. coli in his urine which was treated with ciprofloxacin as an outpatient. Admission Exam Per Admitting Provider Constitutional: WD/WN, vitals as above Eyes: PERRL, conjunctivae normal, anicteric sclerae Respiratory: normal respiratory effort, lungs clear to auscultation Cardiovascular: RRR, no murmur, no edema Gastrointestinal (Abdomen): normal bowel sounds, soft, nontender, no hepatosplenomegaly Musculoskeletal: no cyanosis or clubbing, extremities motor strength 5/5 Skin: no rashes, warm and dry Neurologic: moves all extremities and awake; not confused Psychiatric: A+Ox3, euthymic affect Principal Dx & Hospital Course #1 = Principal Diagnosis (1) Acute pyelonephritis: Presented with fatigue, vomiting x1 week and found on abdominal imaging to have evidence of possible pyelonephritis in RLQ transplanted kidney. UA infected appearing, UCx collected with evidence of >100k CFU GNR (though after first ceftriaxone dose). Lactate 1.6 on admission. Received 2L NSS in ER followed by NSS at 125cc/hr, discontinued today. Started on dapto/katie given immunocompromised status -> transitioned to ceftriaxone as UCx growing >100,000 CFU E. coli -> cipro 500mg BID x10 days on discharge. Urology consulted 07/15 as patient has had recurrent UTI requiring hospitalization -> found to have urethral stricture on cystoscopy which was dilated, and also had right ureteral stent placed. Follow up Urology outpatient 07/20 for catheter removal. Follow up with transplant surgeon, Nephrology, PCP. (2) MOOKIE (acute kidney injury): Creatinine 2.18 -> 1.6 with IV fluids since admission. Suspect due to pyelonephritis/renal inflammation in only functional kidney in addition to prerenal causes from poor appetite/vomiting at home x1 week. Patient having good oral intake and good return of kidney function, no further IV fluids. BMP on Wednesday. (3) Hypercalcemia: Ca 12.9 -> 9.8 with IVF and cinacalcet 60mg daily, continue. BMP on Wednesday. (4) Renal transplant recipient: Nephrology consulted and appreciate recommendations, care plan reviewed with Dr. Christina. Continue CellCept and belatacept on discharge. (5) Hyponatremia: Intravascularly dry on admission, with Na 126 -> 134 on day of discharge. (6) Diabetes mellitus, type 2: Hemoglobin A1c 6.9% on 07/14. Resume home metformin. (7) Hypertension: Continue home Coreg. (8) Anemia: History of anemia of chronic disease; Hgb near baseline at 9.7 on day of discharge (as high as 12 on admission however was intravascularly dry at that time). (9) Constipation: Resolved with bowel regimen. Plan Dispo: home Discharge Exam Constitutional WD/WN, vitals as above Respiratory normal respiratory effort, lungs clear to auscultation Cardiovascular RRR, no murmur, no edema Gastrointestinal (Abdomen) normal bowel sounds, soft, nontender, no hepatosplenomegaly Updated Medication List Medication Instructions Recorded Confirmed Type aspirin 81 mg chewable tablet 1 tab PO DAILY #30 tabs 11/23/18 07/13/22 History blood-glucose meter (TraktoPROTouch #1 ea 08/13/20 07/03/22 Rx Verio Meter) carvedilol 3.125 mg tablet (Coreg) 3.125 mg PO BID #60 tabs 10/03/20 07/13/22 Rx lancets (TraktoPROTouch UltraSoft #200 ea 02/27/21 07/03/22 Rx Lancets) blood sugar diagnostic (OneTouch #200 strips 12/31/21 07/03/22 Rx Verio test strips) acetaminophen 500 mg tablet 500 mg PO Q8H PRN Pain or fever 01/30/22 07/13/22 History (Tylenol Extra Strength) belatacept 250 mg intravenous IV 01/30/22 07/03/22 History solution (Nulojix) insulin aspart U-100 100 unit/mL 12 unit subcut TID 01/30/22 07/13/22 History subcutaneous cartridge (Novolog PenFill U-100 Insulin aspart) insulin glargine 100 unit/mL (3 24 unit subcut QPM 01/30/22 07/13/22 History mL) subcutaneous pen (Basaglar KwikPen U-100 Insulin) metformin 500 mg tablet 500 mg PO BID 01/30/22 07/13/22 History atorvastatin 10 mg tablet 10 mg PO DAILY #90 tabs 03/25/22 07/13/22 Rx entecavir 0.5 mg tablet 0.5 mg PO DAILY 05/01/22 07/13/22 History mycophenolate mofetil 250 mg 1,000 mg PO BID 05/01/22 07/13/22 History capsule pantoprazole 40 mg tablet,delayed 40 mg PO DAILY #90 tabs 07/07/22 07/13/22 Rx release pen needle, diabetic 32 gauge x #100 ea 07/07/22 Rx 5/32" (BD Jackie 2nd Gen Pen Needle) cinacalcet 30 mg tablet 60 mg PO DAILY 07/13/22 07/13/22 History ciprofloxacin HCl 500 mg tablet 500 mg PO BID 10 days #20 tabs 07/17/22 Rx oxybutynin chloride 5 mg tablet 5 mg PO TID 3 days #9 tabs 07/17/22 Rx Hospital Stay Data Consultations 07/13/22 13:18 Consult Nephrology Routine 07/13/22 13:22 ED Decision to Admit Stat 07/15/22 13:51 Consult Urology Routine Procedures Performed Operation Date: 07/16/22 07:00 Actual Procedures p Cystoscopy, Urethral Dilation, Right Stent Insertion, Arizmendi Placement.(Right) - Facundo Monterroso MD Diagnostic Imagining Performed 07/13/22 11:11 CT abd pelvis wo con Stat 07/16/22 14:00 FL KUB Routine Discharge Instructions Given to Patient (Per Discharging Provider) You were admitted for urinary tract infection. You had a urethral stricture and a stone in your right [place] kidney. The Urology doctor dilated the stricture, and put a stent in the right ureter to allow flow from that right kidney. Your kidney numbers improved and you were felt to be safe for discharge home. You will go home on antibiotics called ciprofloxacin, 500milligram tablet every 12 hours until the prescription is complete. You should have close follow up with Dr. Agee, as well as your family doctor. You will have follow up with Urology for your catheter. You will also have repeat kidney labwork on Wednesday, to send to your family doctor, Dr. Agee, and the kidney doctor. New medicines: Cipro (antibiotic) every 12 hours until complete Oxybutynin (Urology medicine for catheter) every 8 hours until seen in Urology office Cinacalcet 60 milligrams daily (calcium medicine, follow up with labwork and Dr. Agee) If you have any concerns regarding new infections, chest pain, trouble breathing, etc, please seek urgent medical attention. Your kidneys are continuing to improve, and they wikll be monitored by Dr. Agee and Dr. Razo (one of the nephrologists who monitors labwork for kidneys in the hospital) Total Time Total Time Spent Total Time Spent (In Minutes): 45 mins Coding Level of Care Code HOSP INP/OBS DISCH >30 MIN Diagnoses Acute pyelonephritis N10 MOOKIE (acute kidney injury) N17.9 Hypercalcemia E83.52 Renal transplant recipient Z94.0 Hyponatremia E87.1 Diabetes mellitus, type 2 E11.9 Hypertension I15.1; N28.89 Hypertension type: secondary to other renal disorders Anemia D64.9 Anemia type: due to chronic kidney disease Constipation K59.00
--- NOTE | 2022-07-17 09:36 | Urology Progress Note ---
Date of Service July 17, 2022 Assessment & Plan (1) Right distal ureteral calculus: (2) UTI (urinary tract infection), bacterial: Plan: - Pt POD#1 s/p Cystoscopy, Urethral Dilation, Right Stent Insertion, Arizmendi Placement. - Doing well this am, progressing as expected. - Afebrile, lab work reviewed - creatinine 1.63, WBC 7.06. - Urine culture grew out E. coli. Blood cultures no growth x 48 hours. On IV Ceftriaxone. - Tolerating right ureteral stent with minimal bother. - Arizmendi catheter was placed after surgery due to urethral stricture. - Maintain Arizmendi upon discharge - will be removed in urology office on 07/20. Pt aware. - Okay to d/c from perspective when medically stable. - Continue supportive care and antibiotics. Transition to appropriate PO antibiotics upon discharge. - Expected clinical course reviewed, all questions answered. - Will arrange outpatient follow-up with our service to discuss definitive stone treatment of right ureteral calculus. - will sign off. Admission and Anticipated Discharge Date Admission Date: July 13, 2022 Subjective Patient seen and examined at bedside this morning. He is awake, alert and sitting up at the side of the bed eating breakfast. No acute issues overnight. He denies flank or abdominal pain this morning. Appetite improved. No nausea or vomiting. Arizmendi catheter patent and draining clear yellow urine. No fever or chills. Review of Systems Constitutional: as per Subjective / HPI Gastrointestinal: as per Subjective / HPI Genitourinary: + as per Subjective / HPI Physical Exam Constitutional: well developed and well nourished; no acute distress Respiratory: normal respiratory effort; no respiratory distress and no labored breathing Gastrointestinal (Abdomen): Inspection/Auscultation: abdomen normal to inspection; abdomen not distended Psychiatric: Orientation: alert and oriented x 3 Genitourinary: Arizmendi patent and draining clear yellow urine Results & Data ([facility]) Vital Signs (Past 12 Hours) Vital Signs Temp Pulse Pulse Resp BP Pulse Ox O2 Del Method 07/17/22 08:44 36.6 C 67 18 136/69 98 Room Air 07/17/22 02:51 36.5 C 67 18 144/74 H 98 Room Air 07/16/22 22:03 56 L PG Care Time/CCT Total # of Minutes Spent Total Time Spent with Patient: Total time spent is greater than 50% in coordination of care (as documented) at patient's floor/unit and/or counseling patient: Coding Level of Care Code 50659 SUB INP/OBS CARE Diagnoses Right distal ureteral calculus N20.1 UTI (urinary tract infection), bacterial N39.0; A49.9
--- NOTE | 2022-07-17 10:13 | Nephrology Progress Note ---
Date of Service July 17, 2022 Assessment & Plan (1) MOOKIE (acute kidney injury): (2) Hypercalcemia: (3) Acute pyelonephritis: (4) Anemia: (5) Hyponatremia: (6) Immunocompromised state: (7) Renal transplant recipient: Plan 67-year-old male with history of renal transplant with decent allograft function, admitted with sepsis with pyelonephritis, vomiting, MOOKIE and multiple electrolyte abnormality including hyponatremia and hypercalcemia. had right ureteral stent placement on 07/16/2022 with plan for lithotripsy once pyelonephritis resolve in a week to 2 weeks. Clinically doing well, appetite improved. Nausea resolved. Has been afebrile. Blood pressure stable. Renal function relatively stable, electrolyte acceptable. -- Encouraged to maintain hydration to keep in positive balance. -- continue Sensipar 60 mg daily on discharge, CellCept -- okay to be discharged from Nephrology standpoint if antibiotic can be switched to orally. will follow while inpatient. Admission and Anticipated Discharge Date Admission Date: July 13, 2022 Leonardo Bennett was seen and evaluated this morning. Overall he has been feeling w ell, voiding In in Arizmendi bag. Had ureteral stent yesterday. Renal function stable, creatinine 1.6, calcium normal. Leukocytosis resolved. Review of Systems Review of Systems: A detailed review of system was otherwise unremarkable. Physical Exam Constitutional: WD/WN, vitals as above no acute distress Respiratory: Auscultation: lungs clear to auscultation bilaterally Cardiovascular: RRR, no murmur, no edema Skin: no rashes Neurologic: no focal motor deficits Psychiatric: Orientation: alert and oriented x 3 Affect: euthymic affect Results & Data ([facility]) Vital Signs (Past 12 Hours) Vital Signs Temp Pulse Resp BP Pulse Ox O2 Del Method 07/17/22 08:44 36.6 C 67 18 136/69 98 Room Air 07/17/22 02:51 36.5 C 67 18 144/74 H 98 Room Air PG Care Time/CCT Total # of Minutes Spent Total Time Spent with Patient: Total time spent is greater than 50% in coordination of care (as documented) at patient's floor/unit and/or counseling patient: Coding Level of Care Code 22268 SUB INP/OBS CARE 3/50MIN Diagnoses MOOKIE (acute kidney injury) N17.9 Hypercalcemia E83.52 Acute pyelonephritis N10 Anemia D64.9 Anemia type: due to chronic kidney disease Hyponatremia E87.1 Immunocompromised state D84.9 Renal transplant recipient Z94.0 (4) Anemia Anemia type: due to chronic kidney disease
[2022-07-17] MEDS ORDERED: CIPROFLOXACIN 500 MG TAB PO SCH (14:15)
[2022-07-17] MEDS: cefTRIAXone SODIUM 2,000 MG in DEXTROSE 5% 50 ML IV SCH (15:22)
== END 2022-07-17 15:24 | disposition home or self-care (01) | DRG 660 ==
LOC: ED 10:49 → SUATTDRO 13:18 → 4W 13:18